=== PATIENT | female | born 2000 | race Caucasian/White ===

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

== ENCOUNTER 2020-03-20 14:54 | Emergency (ER) | payer OTHER ==
[2020-03-20 19:13] LABS: Urine Blood 3+ (NEG); Urine Glucose NEGATIVE (NEG); Urine Protein TRACE (NEG); Urine Specific Gravity >1.030 (1.005-1.030)
[2020-03-20 19:16] LABS: Urine Bacteria 20-50 /HPF (<20); Urine RBC <5 /HPF (NONE SEEN); Urine Trichomonas PRESENT (NONE SEEN)
[2020-03-20 19:36] LABS: Absolute Lymphocytes (CBC) 3.6 K/uL (0.7-4.9); Basophils % 0.4 % (0-1.3); Hematocrit 35.5 % (36.0-45.0); Lymphocytes % 31.3 % (15.3-44.8); MPV 7.2 fL (7.6-11.3); RBC Red Blood Cell Count 4.08 M/uL (3.86-4.86)
[2020-03-20 20:07] LABS: BUN Blood Urea Nitrogen 7 mg/dL (7-18); Bicarbonate 27 mmol/L (21-32); Glucose Level 116 mg/dL (74-106); HCG, Quantitative 48815 mIU/mL (1-3); Potassium 3.3 mmol/L (3.5-5.1); Sodium Level 137 mmol/L (136-145)
[2020-03-20] MEDS ORDERED: metroNIDAZOLE 500 MG TABLET ONE (20:25)
[2020-03-20] MEDS ORDERED: POTASSIUM CL SA 10 MEQ TAB PO ONE (20:50)
--- NOTE | 2020-03-20 21:17 | RAD REPORT ---
EXAM DESCRIPTION: US - Transvaginal OB - 03/20/2020 8:24 pm CLINICAL HISTORY: VAGINAL BLEEDING COMPARISON: No comparisons FINDINGS: A single gestational sac is seen within the uterus. The shape of the sac is within normal limits for gestational age. Within the sac is a single pole with crown-rump length of 8 mm, cor relating to estimated gestational age of 6 weeks 5 days gestational age. Estimated date of delivery i s 11/08/2020. Heart rate is 123 BPM. The placenta is not yet developed due to early gestational age. The left ovary is normal in size, shape and echotexture. Normal flow is seen to the left ovary. The r ight ovary is obscured by bowel gas. Normal Doppler blood flow was demonstrated to the left ovary. IMPRESSION: Single live early intrauterine gestation with estimated gestational age of 6 weeks 5 day s gestational age, JOSUE 11/08/2020.
--- NOTE | 2020-03-20 22:17 | ER ---
Nurse's Notes [facility] Name: Jaclyn Kemp Age: 20 yrs Sex: Female : 2000 Arrival Date: 03/20/2020 Time: 15:03 Bed 17 Private MD: Diagnosis: Threatened ;Less than 8 weeks gestation of ;Trichomoniasis Presentation: 03/20 15:08 Chief complaint: Patient states: Approximately 6 weeks . Started vaginal ll1 bleeding like a period today. Slight cramping. No dysuria. + "morning sickness" today. G1, P0. Coronavirus screen: Client denies travel out of the [place] in the last 14 days. At this time, the client does not indicate any symptoms associated with coronavirus-19. Ebola Screen: Patient denies travel to an Ebola-affected area in the 21 days before illness onset. Initial Sepsis Screen: Does the patient meet any 2 criteria? No. Patient's initial sepsis screen is negative. Does the patient have a suspected source of infection? Yes: Acute abdominal pain. Risk Assessment: Do you want to hurt yourself or someone else? Patient reports no desire to harm self or others. Onset of symptoms was March 20, 2020. 15:08 Method Of Arrival: Ambulatory ll1 15:08 Acuity: DAVID 3 ll1 CONSERVATION AGENT: 23:37 1, 0, Living 0, LMP 01/26/2020 kb Historical: - Allergies: 15:10 No Known Allergies; ll1 - PMHx: 15:10 None; ll1 - PSHx: 15:10 None; ll1 - Immunization history:: Flu vaccine is up to date. - Social history:: Smoking status: Patient denies any tobacco usage or history of. Screenin:31 Abuse screen: Denies threats or abuse. Nutritional screening: No deficits noted. vg1 Tuberculosis screening: No symptoms or risk factors identified. Fall Risk None identified. Assessment: 19:10 Obstetrical Assessment: Patient reports light spotting of pink tinged blood.. General: vg1 Appears in no apparent distress. comfortable, Behavior is calm, cooperative. Pain: Denies pain. Neuro: Level of Consciousness is awake, alert, obeys commands, Oriented to person, place, time, situation. Cardiovascular: Patient's skin is warm and dry. Respiratory: Airway is patent Respiratory effort is even, unlabored. GI: No signs and/or symptoms were reported involving the gastrointestinal system. : No signs and/or symptoms were reported regarding the genitourinary system. EENT: No signs and/or symptoms were reported regarding the EENT system. Derm: Skin is intact, is healthy with good turgor. Musculoskeletal: Circulation, motion, and sensation intact. 20:38 Reassessment: Patient appears in no apparent distress at this time. Patient and/or vg1 family updated on plan of care and expected duration. Pain level reassessed. Patient is alert, oriented x 3, equal unlabored respirations, skin warm/dry/pink. 22:07 Reassessment: Patient appears in no apparent distress at this time. Patient and/or vg1 family updated on plan of care and expected duration. Pain level reassessed. Patient is alert, oriented x 3, equal unlabored respirations, skin warm/dry/pink. Patient denies pain at this time. Vital Signs: 15:08 BP 134 / 72; Pulse 89; Resp 17; Temp 97.0; Pulse Ox 100% ; Weight 77.11 kg; Height 5 ll1 ft. 2 in. (157.48 cm); Pain 1/10; 19:31 BP 126 / 66; Pulse 89; Resp 16; Pulse Ox 100% on R/A; vg1 20:30 BP 124 / 66; Pulse 88; Resp 16; Pulse Ox 100% on R/A; vg1 22:07 BP 115 / 57; Pulse 80; Resp 16; Pulse Ox 100% on R/A; vg1 15:08 Body Mass Index 31.09 (77.11 kg, 157.48 cm) ll1 ED Course: 15:03 Patient arrived in ED. am4 15:10 Triage completed. ll1 15:10 Arm band placed on. ll1 18:40 Aleshia Tirado [facility]-C [facility]. kb 18:40 Danial Shah MD is Attending Physician. kb 18:41 Lucaina Hampton RN is Primary Nurse. vg1 19:29 Initial lab(s) drawn, by me, sent to lab. Inserted saline lock: 20 gauge in right vg1 antecubital area, using aseptic technique. Blood collected. 19:31 Patient has correct armband on for positive identification. Placed in gown. Bed in low vg1 position. Call light in reach. 20:03 US at bedside. vg1 20:25 US Transvaginal Ob In Process Unspecified. EDMS 23:00 No provider procedures requiring assistance completed. IV discontinued, intact, vg1 bleeding controlled, No redness/swelling at site. Pressure dressing applied. Administered Medications: 20:12 Drug: Flagyl 500 mg Route: PO; vg1 22:06 Follow up: Response: No adverse reaction vg1 20:38 Drug: Potassium Chloride 20 mEq Route: PO; vg1 22:06 Follow up: Response: No adverse reaction vg1 22:06 Drug: Rho D Immune Globulin 300 mcg Route: IM; Site: right ventrogluteal; vg1 23:00 Follow up: Response: No adverse reaction vg1 Outcome: 22:17 Discharge ordered by . kb 23:00 Discharged to home ambulatory. vg1 23:00 Condition: stable 23:00 Discharge instructions given to patient, Instructed on discharge instructions, follow up and referral plans. medication usage, Demonstrated understanding of instructions, follow-up care, medications, Prescriptions given X 1. 23:01 Patient left the ED. vg1 Signatures: Dispatcher [employer] EDOH Aleshia Tirado, CLOTH CHECKER-C CLOTH CHECKER-Luicana Garcia RN RN vg1 Grisel Neil, RN RN ll1 Sarah Rousseau am4
--- NOTE | 2020-03-20 22:17 | EDPHYS ---
[facility] Name: Jaclyn Kemp Age: 20 yrs Sex: Female : 2000 Arrival Date: 03/20/2020 Time: 15:03 Bed 17 Private MD: ED Physician Danial Shah HPI: 03/20 23:37 This 20 yrs old Female presents to ER via Ambulatory with complaints of kb Vaginal Bleeding, + Preg <12wks. 23:37 The patient presents to the emergency department with vaginal bleeding, described as kb spotting. The estimated gestational age is 6 weeks. course: care: private OB physician, Dr. Sheppard, Leakage of Fluid: none appreciated, Ultrasound: the patient had an ultrasound, Risk/complications: no obvious risks or complications are appreciated. Previous pregnancies: the patient has never been . Associated signs and symptoms: Pertinent positives: vaginal bleeding, Pertinent negatives: abdominal pain. The patient has not experienced similar symptoms in the past. The patient has not recently seen a physician. Pt reports she noticed blood on the toilet tissue earlier today. No other bleeding. No symptoms at this time. 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 - Social history:: Smoking status: Patient denies any tobacco usage or history of. ROS: 23:36 Constitutional: Negative for fever, chills, and weight loss, Cardiovascular: Negative kb for chest pain, palpitations, and edema, Respiratory: Negative for shortness of breath, cough, wheezing, and pleuritic chest pain, Abdomen/GI: Negative for abdominal pain, nausea, vomiting, diarrhea, and constipation, Back: Negative for injury and pain, MS/Extremity: Negative for injury and deformity, Skin: Negative for injury, rash, and discoloration, Neuro: Negative for headache, weakness, numbness, tingling, and seizure. 23:36 : Positive for vaginal bleeding. Exam: 23:36 Constitutional: This is a well developed, well nourished patient who is awake, alert, kb and in no acute distress. Head/Face: Normocephalic, atraumatic. Chest/axilla: Normal chest wall appearance and motion. Nontender with no deformity. No lesions are appreciated. Cardiovascular: Regular rate and rhythm with a normal S1 and S2. No gallops, murmurs, or rubs. Normal PMI, no JVD. No pulse deficits. Respiratory: Lungs have equal breath sounds bilaterally, clear to auscultation and percussion. No rales, rhonchi or wheezes noted. No increased work of breathing, no retractions or nasal flaring. Abdomen/GI: Soft, non-tender, with normal bowel sounds. No distension or tympany. No guarding or rebound. No evidence of tenderness throughout. Back: No spinal tenderness. No costovertebral tenderness. Full range of motion. Skin: Warm, dry with normal turgor. Normal color with no rashes, no lesions, and no evidence of cellulitis. MS/ Extremity: Pulses equal, no cyanosis. Neurovascular intact. Full, normal range of motion. Neuro: Awake and alert, GCS 15, oriented to person, place, time, and situation. Cranial nerves II-XII grossly intact. Motor strength 5/5 in all extremities. Sensory grossly intact. Cerebellar exam normal. Normal gait. Vital Signs: 15:08 BP 134 / 72; Pulse 89; Resp 17; Temp 97.0; Pulse Ox 100% ; Weight 77.11 kg; Height 5 ll1 ft. 2 in. (157.48 cm); Pain 1/10; 19:31 BP 126 / 66; Pulse 89; Resp 16; Pulse Ox 100% on R/A; vg1 20:30 BP 124 / 66; Pulse 88; Resp 16; Pulse Ox 100% on R/A; vg1 22:07 BP 115 / 57; Pulse 80; Resp 16; Pulse Ox 100% on R/A; vg1 15:08 Body Mass Index 31.09 (77.11 kg, 157.48 cm) ll1 MDM: 18:40 Patient medically screened. kb 21:19 Data reviewed: vital signs, nurses notes. Data interpreted: Pulse oximetry: on room air kb is 100 %. Interpretation: normal. Counseling: I had a detailed discussion with the patient and/or guardian regarding: the historical points, exam findings, and any diagnostic results supporting the discharge/admit diagnosis, lab results, radiology results, the need for outpatient follow up, an OB/Gyne specialist, to return to the emergency department if symptoms worsen or persist or if there are any questions or concerns that arise at home. 03/20 19:00 Order name: Quantitative Hcg; Complete Time: 20:19 kb 03/20 19:00 Order name: Abo/rh Typing 03/20 19:00 Order name: Basic Metabolic Panel; Complete Time: 20:19 kb 03/20 19:00 Order name: CBC with Diff; Complete Time: 19:57 kb 03/20 19:00 Order name: Urine Microscopic Only; Complete Time: 19:24 kb 03/20 19:01 Order name: Urine --Ancillary (enter results); Complete Time: 19:24 kb 03/20 19:01 Order name: Urine Dipstick--Ancillary (enter results); Complete Time: 19:24 kb 03/20 19:08 Order name: US Transvaginal Ob; Complete Time: 21:19 kb 03/20 19:17 Order name: Urine Culture [facility] 03/20 20:41 Order name: Rh Typing [facility] 03/20 20:41 Order name: Antibody Screen [facility] 03/20 20:41 Order name: Fetalscreen [facility] 03/20 20:41 Order name: Cord Rh type [facility] 03/20 20:42 Order name: Rhogam [facility] 03/20 15:21 Order name: Urine Test (obtain specimen); Complete Time: 19:06 kb 03/20 15:21 Order name: Urine Dipstick-Ancillary (obtain specimen); Complete Time: 19:06 kb 03/20 19:00 Order name: IV Saline Lock; Complete Time: 19:28 kb 03/20 19:00 Order name: Labs collected and sent; Complete Time: 19:28 kb 03/20 19:00 Order name: NPO; Complete Time: 19:02 kb Administered Medications: 20:12 Drug: Flagyl 500 mg Route: PO; vg1 22:06 Follow up: Response: No adverse reaction vg1 20:38 Drug: Potassium Chloride 20 mEq Route: PO; vg1 22:06 Follow up: Response: No adverse reaction vg1 22:06 Drug: Rho D Immune Globulin 300 mcg Route: IM; Site: right ventrogluteal; vg1 23:00 Follow up: Response: No adverse reaction vg1 Disposition: 03/20/20 22:17 Discharged to Home. Impression: Threatened , Less than 8 weeks gestation of , Trichomoniasis. - Condition is Stable. - Discharge Instructions: Trichomoniasis, First Trimester of , Ulmb-jv-Gmxo, Threatened Miscarriage, Debz-yq-Vela, Vaginal Bleeding During , First Trimester, Giqe-bs-Lmfr. - Prescriptions for Flagyl 500 mg Oral Tablet - take 1 tablet by ORAL route every 12 hours for 7 days; 14 tablet. - Medication Reconciliation Form, Thank You Letter, Antibiotic Education, Prescription Opioid Use form. - Follow up: Emergency Department; When: As needed; Reason: Worsening of condition. Follow up: Private Physician; When: 2 - 3 days; Reason: Recheck today's complaints, Continuance of care, Re-evaluation by your physician. Addendum: 03/22/2020 20:03 Co-signature as Attending Physician, Danial Shah MD I agree with the assessment and k dr plan of care. Signatures: Dispatcher [employer] EDWY Aleshia Tirado, BENNY-C MANNEQUIN COLORING ARTIST-Ckb Danial Shah MD MD [facility] Luciana Hampton RN RN vg1 Grisel Neil RN RN ll1 Corrections: (The following items were deleted from the chart) 03/20 22:19 22:17 03/20/2020 22:17 Discharged to Home. Impression: Threatened ; Less than 8 kb weeks gestation of . Condition is Stable. Forms are Medication Reconciliation Form, Thank You Letter, Antibiotic Education, Prescription Opioid Use. Follow up: Emergency Department; When: As needed; Reason: Worsening of condition. Follow up: Private Physician; When: 2 - 3 days; Reason: Recheck today's complaints, Continuance of care, Re-evaluation by your physician. kb 23:01 22:19 03/20/2020 22:17 Discharged to Home. Impression: Threatened ; Less than 8 vg1 weeks gestation of ; Trichomoniasis. Condition is Stable. Discharge Instructions: First Trimester of , Ofef-od-Lusn, Threatened Miscarriage, Hcki-qa-Esor, Vaginal Bleeding During , First Trimester, Fswg-dz-Ggdc. Forms are Medication Reconciliation Form, Thank You Letter, Antibiotic Education, Prescription Opioid Use. Follow up: Emergency Department; When: As needed; Reason: Worsening of condition. Follow up: Private Physician; When: 2 - 3 days; Reason: Recheck today's complaints, Continuance of care, Re-evaluation by your physician. kb
[2020-03-20 23:38] VITALS: BP 126/66; O2SAT 100
[2020-03-20 23:39] VITALS: TEMP 97
== END 2020-03-20 23:01 | disposition home or self-care (01) ==
LOC: ER 14:54
DX: O20.0 Threatened abortion (principal); Z3A.08 8 weeks gestation of pregnancy; A59.9 Trichomoniasis, unspecified
CPT/HCPCS: 87088; 85025; 87086; 80048; 36415; 86900; 86850; 81025; 86901 ×2; 84702; 76817; 96372; 99284; J2790; 81003; 81015

== ENCOUNTER 2020-09-20 05:46 | Emergency (ER) | payer OTHER ==
--- OUTSIDE RECORDS SUMMARY | 2020-09-20 05:49 | XMS REPORT | Continuity of Care Document ---
:2000 Author Organization [facility] t Address [address] [place] [address] Care Team Providers Name Role Phone Unavailable Unavailable Unavailable Problems Condition Condition Condition Status Onset Resolution Last Treating Co mments Source Name Details Category Date Date Treatment Clinician Date Major Major Diagnosis Active [facility] depressive depressive Darling kes - disorder, disorder, Tomasz megan single single l episode, episode, Outpat i unspecifie unspecifie en t d d Clinics Anxiety Anxiety Diagnosis [facility] disorder, disorder, [facility] - unspecifie unspecifie Me [facility] Sinus Sinus Problem Active [facility] problem problem [facility] Sore Sore Diagnosis Active [facility] throat throat [facility] Allergies, Adverse Reactions, Alerts Allergy Allergy Status Severity Reaction(s) Onset Inactive Treating Comm ents Source Name Type Date Date Clinician Cinnamon Adverse Active Info Not [facility] Reaction Available [facility] Medications Ordered Filled Start Stop Current Ordering Indication Dosage Frequency Signature Comments Components Source Medication Medication Date Date Medication? Clinician (SIG) Name Name Lysine Lysine Yes Maite as [facility] directed [facility] Clinics Procedures This patient has no known procedures. Encounters Start End Encounter Admission Attending Care Care Encounter Source Date/Time Date/Time Type Type Clinicians Facility Department ID 2018-10-09 2018-10-09 [facility] [id number] [address] 15:20:00 15:20:00 [facility] Medicine Medicine [facility] ent Clinics Results This patient has no known results.
--- NOTE | 2020-09-20 06:12 | ER ---
Nurse's Notes [facility] Name: Jaclyn Kemp Age: 20 yrs Sex: Female : 2000 Arrival Date: 09/20/2020 Time: 05:48 Bed 5 Private MD: Diagnosis: Foreign body in left ear-REMOVED Presentation: 09/20 06:08 Chief complaint: Patient states: Pulled ear plug out this morning and states a piece lp1 stayed in her right ear; wears earplugs to sleep due to snoring. Coronavirus screen: Client denies travel out of the [place] in the last 14 days. At this time, the client does not indicate any symptoms associated with coronavirus-19. Ebola Screen: No symptoms or risks identified at this time. Initial Sepsis Screen: Does the patient meet any 2 criteria? No. Patient's initial sepsis screen is negative. Does the patient have a suspected source of infection? No. Patient's initial sepsis screen is negative. Risk Assessment: Do you want to hurt yourself or someone else? Patient reports no desire to harm self or others. Onset of symptoms was September 20, 2020. 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 - Social history:: Smoking status: Patient denies any tobacco usage or history of. - Family history:: not pertinent. Screenin:10 Abuse screen: Denies threats or abuse. Denies injuries from another. Nutritional lp1 screening: No deficits noted. Tuberculosis screening: No symptoms or risk factors identified. Fall Risk None identified. Assessment: 06:10 General: Appears in no apparent distress. Behavior is calm, cooperative. Pain: Denies lp1 pain. Neuro: No deficits noted. Cardiovascular: No deficits noted. Respiratory: No deficits noted. GI: No signs and/or symptoms were reported involving the gastrointestinal system. : No signs and/or symptoms were reported regarding the genitourinary system. EENT: Reports piece of earplug to right ear. Derm: Skin is pink, warm \T\ dry. Musculoskeletal: No deficits noted. Vital Signs: 06:08 BP 118 / 73; Pulse 100; Resp 18; Temp 98.5(O); Pulse Ox 100% on R/A; Weight 92.99 kg lp1 (R); Height 5 ft. 2 in. (157.48 cm); Pain 0/10; 06:08 Body Mass Index 37.49 (92.99 kg, 157.48 cm) 1 ED Course: 05:48 Patient arrived in ED. 06:01 Juancarlos Gusman MD is Attending Physician. amanda 06:08 Ritika Dash, RN is Primary Nurse. lp1 06:09 Triage completed. lp1 06:09 Arm band placed on. lp1 06:10 Patient has correct armband on for positive identification. lp1 06:11 No provider procedures requiring assistance completed. Patient did not have IV access lp1 during this emergency room visit. Administered Medications: No medications were administered Outcome: 06:12 Discharge ordered by . [facility] 06:20 Discharged to home ambulatory. lp1 06:20 Condition: good 06:20 Discharge instructions given to patient, Instructed on discharge instructions, follow up and referral plans. Demonstrated understanding of instructions, follow-up care. 06:20 Patient left the ED. lp1 Signatures: Juancarlos Gusman MD MD cha Pena, Laura, RN RN [facility] Romana Meek
--- NOTE | 2020-09-20 06:13 | EDPHYS ---
Physician Documentation [facility] Name: Jaclyn Kemp Age: 20 yrs Sex: Female : 2000 Arrival Date: 09/20/2020 Time: 05:48 Bed 5 Private MD: ASHLEY Physician Juancarlos Gusman HPI: 09/20 06:07 This 20 yrs old Female presents to ER via Unassigned with complaints of amanda Foreign Body In Ear. 06:07 The patient presents with a foreign body sensation, PLUG. The complaints affect the amanda left ear. Onset: The symptoms/episode began/occurred just prior to arrival. Modifying factors: The symptoms are alleviated by nothing, the symptoms are aggravated by. Associated signs and symptoms: The patient has no apparent associated signs or symptoms. The patient has not experienced similar symptoms in the past. 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 - Social history:: Smoking status: Patient denies any tobacco usage or history of. - Family history:: not pertinent. ROS: 06:07 Constitutional: Negative for fever, chills, and weight loss, Eyes: Negative for injury, amanda pain, redness, and discharge, Neck: Negative for injury, pain, and swelling, Cardiovascular: Negative for chest pain, palpitations, and edema, Respiratory: Negative for shortness of breath, cough, wheezing, and pleuritic chest pain, Abdomen/GI: Negative for abdominal pain, nausea, vomiting, diarrhea, and constipation, Back: Negative for injury and pain, : Negative for injury, bleeding, discharge, and swelling, MS/Extremity: Negative for injury and deformity, Skin: Negative for injury, rash, and discoloration, Neuro: Negative for headache, weakness, numbness, tingling, and seizure, Psych: Negative for depression, anxiety, suicide ideation, homicidal ideation, and hallucinations, Allergy/Immunology: Negative for hives, rash, and allergies, Endocrine: Negative for neck swelling, polydipsia, polyuria, polyphagia, and marked weight changes, Hematologic/Lymphatic: Negative for swollen nodes, abnormal bleeding, and unusual bruising. 06:07 ENT: Positive for ear pain, foreign body sensation. Exam: 06:07 Constitutional: This is a well developed, well nourished patient who is awake, alert, amanda and in no acute distress. Head/Face: Normocephalic, atraumatic. Eyes: Pupils equal round and reactive to light, extra-ocular motions intact. Lids and lashes normal. Conjunctiva and sclera are non-icteric and not injected. Cornea within normal limits. Periorbital areas with no swelling, redness, or edema. Neck: Trachea midline, no thyromegaly or masses palpated, and no cervical lymphadenopathy. Supple, full range of motion without nuchal rigidity, or vertebral point tenderness. No Meningismus. Chest/axilla: Normal chest wall appearance and motion. Nontender with no deformity. No lesions are appreciated. Cardiovascular: Regular rate and rhythm with a normal S1 and S2. No gallops, murmurs, or rubs. Normal PMI, no JVD. No pulse deficits. Respiratory: Lungs have equal breath sounds bilaterally, clear to auscultation and percussion. No rales, rhonchi or wheezes noted. No increased work of breathing, no retractions or nasal flaring. Abdomen/GI: Soft, non-tender, with normal bowel sounds. No distension or tympany. No guarding or rebound. No evidence of tenderness throughout. Back: No spinal tenderness. No costovertebral tenderness. Full range of motion. Skin: Warm, dry with normal turgor. Normal color with no rashes, no lesions, and no evidence of cellulitis. MS/ Extremity: Pulses equal, no cyanosis. Neurovascular intact. Full, normal range of motion. Neuro: Awake and alert, GCS 15, oriented to person, place, time, and situation. Cranial nerves II-XII grossly intact. Motor strength 5/5 in all extremities. Sensory grossly intact. Cerebellar exam normal. Normal gait. Psych: Awake, alert, with orientation to person, place and time. Behavior, mood, and affect are within normal limits. 06:07 ENT: Ear canal(s): foreign body, LEFT EAR PLUG. Vital Signs: 06:08 BP 118 / 73; Pulse 100; Resp 18; Temp 98.5(O); Pulse Ox 100% on R/A; Weight 92.99 kg lp1 (R); Height 5 ft. 2 in. (157.48 cm); Pain 0/10; 06:08 Body Mass Index 37.49 (92.99 kg, 157.48 cm) lp1 MDM: 06:01 Patient medically screened. amanda 06:09 Differential diagnosis: foreign body. Data reviewed: vital signs, nurses notes. Data amanda interpreted: threat monitoring analyst: not applicable for this patient encounter. rate is 100 beats/min, Pulse oximetry: on room air. Counseling: I had a detailed discussion with the patient and/or guardian regarding: the historical points, exam findings, and any diagnostic results supporting the discharge/admit diagnosis, the need for outpatient follow up, for definitive care, a family practitioner. Administered Medications: No medications were administered Disposition Summary: 09/20/20 06:12 Discharge Ordered Location: Home amanda Problem: new amanda Symptoms: have improved amanda Condition: Stable amanda Diagnosis - Foreign body in left ear - REMOVED amanda Followup: amanda - With: Private Physician - When: 2 - 3 days - Reason: Recheck today's complaints, Continuance of care, Re-evaluation by your physician Discharge Instructions: - Discharge Summary Sheet amanda - Ear Foreign Body amanda - Ear Foreign Body, [id number]-ob-Zbfw amanda Forms: - Medication Reconciliation Form amanda - Thank You Letter amanda - Antibiotic Education amanda - Prescription Opioid Use amanda Signatures: Juancarlos Gusman MD MD cha Pena, Laura, RN RN lp1
[2020-09-20 06:39] VITALS: BP 118/73; TEMP 98.5; O2SAT 100
== END 2020-09-20 06:20 | disposition home or self-care (01) ==
LOC: ER 05:46
DX: T16.2XXA Foreign body in left ear, initial encounter (principal)
CPT/HCPCS: 99281

== ENCOUNTER 2020-10-27 10:14 | Inpatient (IN) | payer OTHER ==
[2020-10-27] MEDS ORDERED: METHYLERGONOVINE 0.2MG/ML AMP IM PRN (15:13)
[2020-10-27] MEDS ORDERED: PROMETHAZINE INJ 25 MG/ML AMP IM PRN ×2 (15:13)
[2020-10-27] MEDS ORDERED: CARBOPROST TROME 250 MCG/ML IM PRN (15:13)
[2020-10-27] MEDS ORDERED: BUTORPHANOL 1 MG/ML INJ IV PRN (15:13)
[2020-10-27] MEDS ORDERED: Ringers Lactate 1,000 ML IV PRN (15:13)
[2020-10-27] MEDS ORDERED: miSOPROStoL 100 MCG TAB VAG PRN (15:19)
[2020-10-27] MEDS ORDERED: OXYTOCIN/LR 20 UNIT/1,000 ML BAG IV SCH (16:00)
[2020-10-27] MEDS ORDERED: Ringers Lactate 1,000 ML IV SCH (16:00)
--- OUTSIDE RECORDS SUMMARY | 2020-10-27 16:04 | XMS REPORT | Continuity of Care Document ---
:[address] [facility] t Address [address] [place] [address] Care Team Providers Name Role Phone Unavailable [...] unspecifie unspecifie [facility] Sinus Sinus Problem Active [facility] Sore Sore Diagnosis Active [facility] Allergies, Adverse Reactions, Alerts Allergy Allergy Status Severity Reaction(s) Onset Inactive Treating Comm ents Source Name Type Date Date Clinician Cinnamon Adverse Active Info Not [facility] Reaction Available [facility] Medications Ordered Filled Start Stop Current Ordering Indication Dosage Frequency Signature Comments Components Source Medication Medication Date Date Medication? Clinician (SIG) Name Name Lysine Lysine Yes Maite as [facility] [place] directed [facility] ent Clinics Procedures This patient has no known procedures. Encounters Start End Encounter Admission Attending Care Care Encounter Source Date/Time Date/Time Type Type Clinicians Facility Department ID 2018-10-09 2018-10-09 [facility] [id number] 15[facility]20:00 15:20:00 [facility] Results This patient has no known results.
--- NOTE | 2020-10-27 16:52 | PREOPHP ---
Date of Admission: 10/27/2020 History Of Present Illness: This is a 20-year-old, primigravida, 38 weeks and 3 days, diabetic, seen in conjunction with Dr. Espana, high-credit risk analyst, [facility], who has recommen ded delivery at this point. Cytotec has been discussed in the office and again today. Family History: Noncontributory. Past Medical History: The patient had a broken elbow in the past with surgery for that. Had gonorrh ea in 2019. Allergies: NO ALLERGIES. Medications: No medications prior to admission other than vitamins and iron. Social History: Does not smoke. Physical Examination: HEENT: Clear. Pupils equal, round, reactive to light and accommodation. Conjunctivae well perfused . No oral, lingual, or buccal lesions. Chest and Lungs: Clear. Heart: Without murmurs, thrills, heaves, or rubs. Breasts: Without masses. Abdomen: Clear. Term size. Baby is vertex. Assessment And Plan: The patient is 1.5 cm, 40% to 50% effaced, vertex, -2 station. Cytotec 50 mcg inserted. We will insert another 50 mcg in 6 hours if necessary and even possibly a third [address] the second. Full labor talk given. The patient is Rh negative, has received RhoGAM during the p regnancy. COVID negative, strep positive, and rubella nonimmune. This has all been discussed with t he patient. Once the rupture of membranes occur or when she goes into an active labor, we will start penicillin p rophylaxis. JUSTIN/ELAINA Voice ID: [id number]
[2020-10-27] MEDS ORDERED: PENICILLIN 2.5 MU in NA CHLORIDE 0.9% 100 ML IV SCH (17:00)
[2020-10-27] MEDS ORDERED: PENICILLIN G POT 5 MU/100 ML VIAL IV ONE (17:00)
[2020-10-27 17:01] VITALS: BMI 37.5
[2020-10-27 17:24] LABS: Absolute Lymphocytes (CBC) 2.3 K/uL (0.7-4.9); Basophils % 0.2 % (0-1.3); Lymphocytes % 28.4 % (15.3-44.8); MPV 8.2 fL (7.6-11.3); RBC Red Blood Cell Count 3.36 M/uL (3.86-4.86)
[2020-10-27] MEDS ORDERED: ZOLPIDEM TARTRATE 10 MG TABLET PO PRN (23:29)
[2020-10-28 03:00] LABS: Urine Appearance TURBID (Clear); Urine Bilirubin NEGATIVE (Negative); Urine Blood TRACE (Negative); Urine Color YELLOW (Yellow); Urine Glucose NEGATIVE (Negative); Urine Protein NEGATIVE (Negative); Urine Specific Gravity <=1.005 (1.005-1.030); Urine Urobilinogen 0.2 mg/dL (0.2-1.0)
[2020-10-28 03:04] LABS: Urine Microscopic Reflex ORDER UMIC
--- NOTE | 2020-10-28 03:17 | PN ---
The patient experienced spontaneous rupture of membranes, clear fluid. She is now 2.5, almost 3 cm, 90% effaced. Scalp electrode placed. Baby does respond to acoustic stimulation. She is doing quite well with Lamaze breathing techniques. Anticipate more rapid progress once she gets to about 4-4.5. NBC/MODL Voice ID: [id number] Report ID: [id number]
[2020-10-28 03:20] LABS: Urine Bacteria >50 /HPF (<20)
[2020-10-28 03:21] LABS: Urine Trichomonas PRESENT (NONE SEEN); Urine Yeast FEW (NONE SEEN)
[2020-10-28 03:22] LABS: Urine RBC <5 /HPF (NONE SEEN)
[2020-10-28] MEDS ORDERED: FAMOTIDINE 20 MG/2 ML VIAL IV ONE (04:43)
[2020-10-28] MEDS ORDERED: METOCLOPRAMIDE 10 MG/2mL INJ ONE (04:43)
[2020-10-28] MEDS ORDERED: METHYLERGONOVINE 0.2MG/ML AMP IM ONE (04:44)
[2020-10-28] MEDS ORDERED: NA CIT/CITRIC AC 30 ML ORAL UDC ONE (04:44)
--- NOTE | 2020-10-28 04:46 | PN ---
The patient is still 3 to 3.5 cm 90% effaced. No cervical change. Baby has shown decreased beat-to- beat variability, still clear fluid, . We discussed with the patient and significant other . We decided to proceed with the section. Infection; blood loss; anesthetic complications; injury to bladder, bowel, ureter; postoperative complications; clots in the legs; pneumonia sapnae jamaal. The patient knows fully, was not constitute all the possible problems that could occur during or following surgery. She has had one dose of penicillin. We will give her 2 g of Ancef prior to the s urgery. Dr. Beth is here. We are cleaning up the room from the previous surgery and we will proceed expeditiously. JUSTIN/ELAINA Voice ID: [id number] Report ID: [id number]
[2020-10-28] MEDS ORDERED: BUPIVACAINE 0.75% (PF) 2 ML SP ONE (04:47)
[2020-10-28] MEDS ORDERED: LIDOCAINE 1.5% W/EPI AMP 5 ML ONE (04:47)
[2020-10-28] MEDS ORDERED: MORPHINE SULFATE/PF 1 MG/ML (10 ML AMP) ONE (04:47)
[2020-10-28] MEDS ORDERED: Phenylephrine HCl 10 MG/ML 1 ML VIAL ONE (04:51)
[2020-10-28] MEDS ORDERED: CEFAZOLIN/SWI 2gm 2 GM/20 ML SYR ONE (05:04)
[2020-10-28] MEDS ORDERED: OXYTOCIN 10 UNIT/ML ML IV ONE ×2 (05:15→05:17)
[2020-10-28] MEDS ORDERED: ONDANSETRON 4 MG (ODT) TAB PO PRN (06:16)
[2020-10-28] MEDS ORDERED: CEFAZOLIN 1GM (PREMIX IV) 50 ML IV ONE (06:16)
[2020-10-28] MEDS ORDERED: Oxycodone HCl/Acetaminophen 1 TAB TAB PO PRN ×2 (06:16)
[2020-10-28] MEDS ORDERED: DIPHENHYDRAMINE 25 MG TAB/CAP PO PRN (06:16)
[2020-10-28] MEDS ORDERED: BISACODYL 10 MG RECTAL SUPP PR PRN (06:16)
[2020-10-28] MEDS ORDERED: KETOROLAC 30 MG/ML INJ IV PRN (06:16)
[2020-10-28] MEDS ORDERED: METHYLERGONOVINE 0.2MG/ML AMP IM PRN (06:16)
[2020-10-28] MEDS ORDERED: ACETAMINOPHEN 500 MG TAB PO PRN ×2 (06:16)
[2020-10-28] MEDS ORDERED: ONDANSETRON 4 MG/2 ML VIAL IV PRN (06:16)
[2020-10-28] MEDS: OXYTOCIN/LR 20 UNIT/1,000 ML BAG IV SCH ×2 (06:39→16:22)
[2020-10-28] MEDS ORDERED: D5LR 1,000 ML with OXYTOCIN 20 UNIT IV SCH ×2 (07:00)
[2020-10-28] MEDS ORDERED: CEFAZOLIN 2 GM in NA CHLORIDE 0.9% 100 ML IVPB ONE (07:19)
[2020-10-28] MEDS ORDERED: CEFAZOLIN/SWI 2gm 2 GM/20 ML SYR IV ONE ×2 (07:30→13:15)
--- NOTE | 2020-10-28 08:22 | OP ---
Surgeon: Ludwig Sheppard MD Housekeeping Coordinator: first Parishfirst line supervisor. Indication: This is a 20-year-old primigravida 38 weeks 3 days, had Cytotec inserted last night and early this morning with rupture of membranes and clear fluid. Had minimal twnt-wn-ivqu variability. Change in positions, IV, increase of fluids, oxygen administered. They improved slightly. The steven ent progressed to about 2.5 cm at which time again loss of variability for sometime. Acoustic stimul ation the second time did not elicit any type of response. It was decided to proceed with primary ce sarean section for delivery for non-reassuring; infection; blood loss; anesthetic complications; inju ry to bladder, bowel, ureter; postoperative complications; clots in legs; and pneumonia discussed. P atient knows fully well, does not constitute all the possible problems that could occur during or fol lowing surgery. Anesthesia: Spinal block, Dr. Beth. Procedure In Detail: After prepping and draping, time-out was performed. Pfannenstiel incision was created. The incision was carried to the fascia. The fascia was incised and incision carried transv ersely. Numerous small bleeders were fulgurated. Anterior fascial plane was developed with both sapphire nt sharp dissection and underlying rectus muscle . Peritoneum entered. Low transverse blad tony flap developed. Low transverse uterine incision created. At this time, an estimated 7 pounds or more male infant was delivered without difficulties. His Apgars 9 and 9. Cord blood specimen obtai laverne. Placenta removed manually. Uterus cleared of clot and blood, exteriorized. Cervical os dilate d. Uterus mildly hypotonic, 0.2 mg of Methergine IM as well as IV drip Pitocin. Estimated blood los s during procedure 900 to 1000 cc. Uterus closed with a running lock stitch of 1 chromic followed by a single [id number] stitch in the right angle for complete hemostasis. It was noted the patien t had no right tube and ovary. There was scar tissue on this side. These were filmy-type adhesions. These were fulgurated. One was tied with a 2-0 plain gut. No other abnormalities were seen in the pelvis. The uterus was replaced in the peritoneal cavity. Gutters clear of clot and blood. The in cision check, no further bleeding. The rectus muscles were reapproximated using 2 sutures of 0 Vicry l. The fascia was closed with 1 Vicryl running from either angle to the midline. Subcutaneous tissu e felt together well. Meghan used for the skin. The patient had 1 dose of 5 million units of penic illin during the labor secondary to be in strep positive, was given 2 g of Ancef prior to the procedu re. Transferred back to her room in good condition. Final Diagnoses: Intrauterine gestation, 38 weeks 3 days, Cytotec for cervical ripening, gestational diabetes, in consultation with Dr. Espana, high-market risk analyst in [place]. Nonreassuring heart ton es, primary section, spinal block anesthesia, mild uterine hypertonus, absent right tube and ovary, apparent previous surgery. The patient apparently is not aware of. JUSTIN/ELAINA Voice ID: [id number] Report ID: [id number]
--- NOTE | 2020-10-28 09:01 | PN ---
Alert this morning. Output is good. Vital signs are all stable. H and H are pending at this point. Full postop talk given. Will begin ambulation later today, possibly send her home on af or Monday morning. Patient has had her Tdap shot during the . She is not requesting analgesics at this point. Doing quite well. JUSTIN/ELAINA Voice ID: [id number] Report ID: [id number]
[2020-10-28] MEDS: METHYLERGONOVINE 0.2 MG TAB PO PRN ×3 (12:17→20:08)
[2020-10-28] MEDS ORDERED: CEFAZOLIN/SWI 1gm 1 GM/10 ML SYR IVP SCH ×2 (12:30→14:00)
[2020-10-28] MEDS ORDERED: CEFAZOLIN/SWI 1gm 1 GM/10 ML SYR IVP ONE (12:30)
[2020-10-29] MEDS: METHYLERGONOVINE 0.2 MG TAB PO PRN ×2 (00:10→04:59)
[2020-10-29 00:28] VITALS: BP 116/60; TEMP 97.7
[2020-10-29 02:23] LABS: RPR (Rapid Plasma Reagin) NON-REACT (NON-REACT)
[2020-10-29] MEDS ORDERED: MAGNESIUM HYDROXIDE 8% 30 ML PO PRN (06:16)
--- NOTE | 2020-10-29 10:03 | DS ---
Hospital Course: A 20-year-old, primigravida, 38 weeks 4 days. Had Cytotec inserted. Went into a v hong active labor. Was diagnosed with non-reassuring heart tones. Taken to surgery, delivered of an estimated 7-pound male, Apgars 9 and 9. Spinal block anesthesia, mild uterine hypotonus. Samantha mated blood loss 900 to 1000 mL. Noted to have an absent right tube and ovary, but denies any previo us surgeries. The left side looked absolutely normal. There was also some mild scarring on the righ t side, filmy adhesions. The patient was beta-strep positive. Had penicillin prior to the surgery a nd Ancef for prophylaxis after the surgery. Postoperatively, she is afebrile, is voiding. We will t debra her IV out this morning. She has already ambulated. Asked if she go home this afternoon. If th e patient takes p.o. intake, walks, can shower and do well, then we will let her go home later this a fternoon. Otherwise, come back tomorrow morning to make rounds. She knows if she goes home. She bryant s already called the office for an appointment to see as early next week. She knows at home she is t o report any fever of 100 degrees or more, severe pain, heavy bleeding or any other type of abnormali ties. She has no post spinal block problems. Will call in to the local pharmacy for tramadol for an algesia. She has had her Tdap shot during the . She is nonimmune to rubella and this has b een offered to her as well. She is Rh negative. Baby is also Rh negative. Therefore, no RhoGAM nee ded. All of this discussed with the patient. Final Diagnoses: Intrauterine gestation, 38 weeks 4 days, non-reassuring heart tones, primary section, mild uterine hypotonus, absence of the right tube and ovary, positive strep status, penicillin prophylaxis. Rubella immunization offered. JUSTIN/ELAINA Voice ID: [id number] Report ID: [id number]
[2020-11-01 18:27] LABS: HBsAG Nonreactive (Nonreactive)
[2020-11-02] MEDS ORDERED: IBUPROFEN 200 MG TAB PO PRN (12:16)
== END 2020-10-29 16:35 | disposition home or self-care (01) | DRG 788 ==
LOC: 2ND-WC 16:02
PROVIDERS: ADMIT Specialist; ATTEND Specialist
PROC: 3E0P7VZ Introduction of Hormone into Female Reproductive, Via Natural or Artificial Opening (ICD-10-PCS; 2020-10-28)
PROC: 4A1H7CZ Monitoring of Products of Conception, Cardiac Rate, Via Natural or Artificial Opening (ICD-10-PCS; 2020-10-28)
PROC: 10H073Z Insertion of Monitoring Electrode into Products of Conception, Via Natural or Artificial Opening (ICD-10-PCS; 2020-10-28)
PROC: 10D00Z1 Extraction of Products of Conception, Low, Open Approach (ICD-10-PCS; principal; 2020-10-28 04:53)
DX: O76 Abnormality in fetal heart rate and rhythm complicating labor and delivery (principal); O24.429 Gestational diabetes mellitus in childbirth, unspecified control; O99.824 Streptococcus B carrier state complicating childbirth; O62.2 Other uterine inertia; Z3A.38 38 weeks gestation of pregnancy; Z37.0 Single live birth
CPT/HCPCS: 36415; 81003; 81015; 85014; 85025; 86592; 86901; 87086; 87088; 87340; 88307; J0690; J2210; J2370; J2540; J2590; J2765; J7120; J7121

== ENCOUNTER 2021-06-21 09:28 | Emergency (ER) | payer OTHER ==
--- OUTSIDE RECORDS SUMMARY | 2021-06-21 09:31 | XMS REPORT | Continuity of Care Document ---
:2000 Author Organization [facility] t Address [address] [place] [address] Care Team Providers Name Role Phone Unavailable [...] unspecifie unspecifie Me [facility] Sinus Sinus Problem Active [facility] Sore Sore Diagnosis Active [facility] throat [facility] Allergies, Adverse Reactions, Alerts Allergy Allergy Status Severity Reaction(s) Onset Inactive Treating Comm ents Source Name Type Date Date Clinician Cinnamon Adverse Active Info Not [facility] Reaction Available [facility] Medications Ordered Filled Start Stop Current Ordering Indication Dosage Frequency Signature Comments Components Source Medication Medication Date Date Medication? Clinician (SIG) Name Name Lysine Lysine Yes Maite as [facility] directed [facility] Clinics Procedures This patient has no known procedures. Encounters Start End Encounter Admission Attending Care Care Encounter Source Date/Time Date/Time Type Type Clinicians Facility Department ID 2018-10-09 2018-10-09 [facility] [id number] [facility] [address] 15:20:00 15:20:00 [facility] Medicine [facility] Results This patient has no known results.
[2021-06-21 09:47] LABS: Urine Blood Trace-intact (Negative); Urine Glucose Negative (Negative); Urine Protein 1+ (Negative)
[2021-06-21] MEDS ORDERED: CEFTRIAXONE 250 MG/VIAL ONE (10:50)
[2021-06-21] MEDS ORDERED: AZITHROMYCIN 250 MG TAB ONE (10:50)
[2021-06-21 11:00] LABS: Urine Bacteria <20 /HPF (<20); Urine Mucus 1+ /HPF (NONE SEEN); Urine RBC <5 /HPF (NONE SEEN)
[2021-06-21 11:01] LABS: Urine Amorphous Sediment 1+ /HPF (NONE SEEN)
--- NOTE | 2021-06-21 11:13 | ER ---
Nurse's Notes [facility] Name: Jaclyn Kemp Age: 21 yrs Sex: Female : 2000 Arrival Date: 06/21/2021 Time: 09:30 Bed 6 Private MD: Diagnosis: Dysuria Presentation: 06/21 09:34 Chief complaint: Patient states: Vaginal pain began last week, stated " the pain began vg1 after intercourse and it continues to hurt, its really sore especially when i wipe and after urination". Denes bleeding. Coronavirus screen: Vaccine status: Patient reports receiving the 2nd dose of the covid vaccine. Client denies travel out of the [place] in the last 14 days. Ebola Screen: Patient denies exposure to infectious person. Patient denies travel to an Ebola-affected area in the 21 days before illness onset. Initial Sepsis Screen: Does the patient meet any 2 criteria? No. Patient's initial sepsis screen is negative. Does the patient have a suspected source of infection? No. Patient's initial sepsis screen is negative. Risk Assessment: Do you want to hurt yourself or someone else? Patient reports no desire to harm self or others. Onset of symptoms was June 14, 2021. 09:34 Method Of Arrival: Ambulatory vg1 09:34 Acuity: DAVID 3 vg1 Triage Assessment: 09:36 General: Appears uncomfortable, Behavior is calm, cooperative. Pain: Complains of pain vg1 in groin Pain currently is 9 out of 10 on a pain scale. 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 - Social history:: Smoking status: Patient denies any tobacco usage or history of. Screenin:43 Abuse screen: Denies threats or abuse. Nutritional screening: No deficits noted. 6 Tuberculosis screening: No symptoms or risk factors identified. Fall Risk None identified. Assessment: 09:44 General: Appears in no apparent distress. Behavior is calm, cooperative. 6 Vital Signs: 09:34 BP 126 / 71; Pulse 99; Resp 16; Temp 98.2(TE); Pulse Ox 100% ; Weight 72.57 kg; Height vg1 5 ft. 2 in. (157.48 cm); Pain 9/10; 11:20 BP 118 / 64; Pulse 87; Resp 18; Pulse Ox 100% ; Pain 3/10; jh6 09:34 Body Mass Index 29.26 (72.57 kg, 157.48 cm) 1 ED Course: 09:30 Patient arrived in ED. mr 09:36 Triage completed. vg1 09:36 Arm band placed on. vg1 09:40 Jaspal Olguin NP is PHCP. pm1 09:40 Leonel Root MD is Attending Physician. pm1 09:43 Honey Bazzi, SUSAN is Primary Nurse. jh6 09:43 Placed in gown. Bed in low position. Call light in reach. Side rails up X 1. 6 10:09 Assist provider with pelvic exam: Set up pelvic tray. Performed by Jaspal Olguin NP 6 Specimens sent to lab. Patient tolerated well. Administered Medications: 10:50 Drug: Rocephin (cefTRIAXone) 250 mg Route: IM; Site: right gluteus; 6 11:20 Follow up: Response: No adverse reaction [facility] 10:50 Drug: AZITHromycin 1 grams Route: PO; 6 11:20 Follow up: Response: No adverse reaction [facility] Outcome: 11:13 Discharge ordered by . pm1 11:42 Patient left the ED. pm1 11:45 Discharged to home ambulatory. [facility] 11:45 Condition: stable 11:45 Discharge instructions given to patient, Instructed on discharge instructions, follow up and referral plans. Demonstrated understanding of instructions, follow-up care, medications, Prescriptions given X 2. Signatures: Fanny Duarte Jaspal Olguin, CHANTAL METEOROLOGY TEACHER pm1 Luciana Hampton RN RN 1 Honey Bazzi, SUSAN RN 6 Corrections: (The following items were deleted from the chart) 09:37 09:36 PMHx: gestational diabetes; 1 1
--- NOTE | 2021-06-21 11:13 | EDPHYS ---
Physician Documentation [facility] Name: Jaclyn Kemp Age: 21 yrs Sex: Female : 2000 Arrival Date: 06/21/2021 Time: 09:30 Bed 6 Private MD: ED Physician Leonel Root HPI: 06/21 09:50 This 21 yrs old Female presents to ER via Ambulatory with complaints of Vaginal Pain. pm1 09:50 The patient presents with burning with urination. Onset: The symptoms/episode pm1 began/occurred 1 week(s) ago, started after rough unprotected intercourse. Modifying factors: The symptoms are alleviated by nothing, the symptoms are aggravated by urinating, sitting. Associated signs and symptoms: Pertinent negatives: diarrhea, fever, vomiting, abdominal pain. Severity of symptoms: in the emergency department the symptoms are unchanged. The patient is sexually active, reports multiple partners, does not use protection during intercourse. The patient has experienced a previous episode, similar to prior gonorrhea in the past. The patient has not recently seen a physician. 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 - Social history:: Smoking status: Patient denies any tobacco usage or history of. ROS: 09:50 Positive for urinary symptoms, Negative for vaginal bleeding, vaginal discharge, pm1 vaginal itching. 09:50 Constitutional: Negative for fever, chills, and weight loss, Cardiovascular: Negative for chest pain, palpitations, and edema, Respiratory: Negative for shortness of breath, cough, wheezing, and pleuritic chest pain. 09:50 MS/Extremity: Negative for injury and deformity, Skin: Negative for injury, rash, and discoloration. 09:50 Neuro: Negative for headache, weakness, numbness, tingling, and seizure. 09:50 Abdomen/GI: Negative for abdominal pain, nausea, vomiting, and diarrhea. 09:50 All other systems are negative. Exam: 09:50 Constitutional: This is a well developed, well nourished patient who is awake, alert, pm1 and in no acute distress. 09:50 Head/Face: Normocephalic, atraumatic. 09:50 Back: No spinal tenderness. No costovertebral tenderness. Full range of motion. Skin: Warm, dry with normal turgor. Normal color with no rashes, no lesions, and no evidence of cellulitis. MS/ Extremity: Pulses equal, no cyanosis. Neurovascular intact. Full, normal range of motion. 09:50 Cardiovascular: Exam negative for acute changes, Rate: normal, Rhythm: regular, Pulses: no pulse deficits are appreciated, Heart sounds: normal. 09:50 Respiratory: Exam negative for acute changes, respiratory distress, shortness of breath. 09:50 Abdomen/GI: Exam negative for acute changes, Inspection: abdomen appears normal, Palpation: abdomen is soft and non-tender, in all quadrants. 09:50 Neuro: Exam negative for acute changes, Orientation: is normal, Mentation: is normal, Motor: is normal, moves all fours. 10:33 : Pelvic Exam: External exam: is normal, Speculum exam: no bleeding is noted, pm1 bimanual exam reveals patient refused, discharge, yellow, Crown Wheel Assembler: Honey DAVIS. Sexual behavior: the patient is sexually active, and reports multiple partners, method of control is none. Vital Signs: 09:34 BP 126 / 71; Pulse 99; Resp 16; Temp 98.2(TE); Pulse Ox 100% ; Weight 72.57 kg; Height vg1 5 ft. 2 in. (157.48 cm); Pain 9/10; 11:20 BP 118 / 64; Pulse 87; Resp 18; Pulse Ox 100% ; Pain 3/10; jh6 09:34 Body Mass Index 29.26 (72.57 kg, 157.48 cm) vg1 MDM: 09:41 Patient medically screened. pm1 11:12 Data reviewed: vital signs. Data interpreted: Pulse oximetry: on room air is 100 %. pm1 Interpretation: normal. Counseling: I had a detailed discussion with the patient and/or guardian regarding: the historical points, exam findings, and any diagnostic results supporting the discharge/admit diagnosis, lab results, the need for outpatient follow up, to return to the emergency department if symptoms worsen or persist or if there are any questions or concerns that arise at home. 06/21 09:47 Order name: Urine Dipstick-Ancillary; Complete Time: 09:50 EDAL 06/21 09:48 Order name: Urine --Ancillary (enter results); Complete Time: 10:07 eb 06/21 10:08 Order name: Wet Prep; Complete Time: 10:27 pm1 06/21 10:08 Order name: GC (GONORR/CHLAMYDIA) Probe pm1 06/21 10:27 Order name: Urine Microscopic Only; Complete Time: 11:11 pm1 06/21 11:04 Order name: Urine Culture EDAL 06/21 10:08 Order name: Pelvic Exam Setup; Complete Time: 10:33 pm1 Administered Medications: 10:50 Drug: Rocephin (cefTRIAXone) 250 mg Route: IM; Site: right gluteus; [facility] 11:20 Follow up: Response: No adverse reaction [facility] 10:50 Drug: AZITHromycin 1 grams Route: PO; 6 11:20 Follow up: Response: No adverse reaction [facility] Disposition: 18:48 Co-signature as Attending Physician, Leonel Root MD. rn Disposition Summary: 06/21/21 11:13 Discharge Ordered Location: Home pm1 Problem: new pm1 Symptoms: have improved pm1 Condition: Stable pm1 Diagnosis - Dysuria pm1 Followup: pm1 - With: Emergency Department - When: As needed - Reason: Worsening of condition Followup: pm1 - With: Private Physician - When: 2 - 3 days - Reason: Recheck today's complaints, Continuance of care, Re-evaluation by your physician Discharge Instructions: - Discharge Summary Sheet pm1 - Dysuria pm1 Forms: - Medication Reconciliation Form pm1 - Thank You Letter pm1 - Antibiotic Education pm1 - Prescription Opioid Use pm1 - Work release form eb Prescriptions: - Bactrim DS 800-160 mg Oral Tablet - take 1 tablet by ORAL route every 12 hours for 10 days; 20 tablet; Refills: 0, pm1 Product Selection Permitted Signatures: Dispatcher [employer] Leonel Lo MD MD rn Marinas, Patrick, NP SITE SUPERVISING TECHNICAL OPERATOR pm1 Luciana Hampton, RN RN vg1 Honey Bazzi RN RN jh6 Corrections: (The following items were deleted from the chart) 09:37 09:36 PMHx: gestational diabetes; vg1 1
[2021-06-21 11:48] VITALS: BP 126/71; TEMP 98.2; O2SAT 100
[2021-06-23 12:04] LABS: C.trachomatis RNA,TMA Not Detected (Not Detected)
== END 2021-06-21 11:42 | disposition home or self-care (01) ==
LOC: ER 09:28
DX: R30.0 Dysuria (principal)
CPT/HCPCS: 87088; 87086; 81025; 87210; 87590; 87490; J0696; 81003; 81015; 96372; 99284

== ENCOUNTER 2021-11-02 13:03 | Emergency (ER) | payer OTHER ==
--- OUTSIDE RECORDS SUMMARY | 2021-11-02 13:08 | XMS REPORT | Continuity of Care Document ---
:2000 Author Organization [facility] Address [address] [place] [address] Care Team Providers Name Role Phone Unavailable Unavailable Unavailable Problems Condition Condition Condition Status Onset Resolution Last Treating Co mments Source Name Details Category Date Date Treatment Clinician Date Major Major Diagnosis Active Common depressive depressive Sp felipe disorder, disorder, - [facility] episode, episode, [facility] unspecifie unspecifie Me dical d d [place] Anxiety Anxiety Diagnosis Active Commo n disorder, disorder, Spir it unspecifie unspecifie - [facility] Sinus Sinus Problem Active Common problem problem [facility] Sore Sore Diagnosis Active Common throat throat [facility] Allergies, Adverse Reactions, Alerts Allergy Allergy Status Severity Reaction(s) Onset Inactive Treating Comm ents Source Name Type Date Date Clinician Cinnamon Adverse Active Info Not Commo n Reaction Available [facility] Medications Ordered Filled Start Stop Current Ordering Indication Dosage Frequency Signature Comments Components Source Medication Medication Date Date Medication? Clinician (SIG) Name Name Lysine Lysine Yes Maite as [place] directed [facility] Procedures This patient has no known procedures. Encounters Start End Encounter Admission Attending Care Care Encounter Source Date/Time Date/Time Type Type Clinicians Facility Department ID 2018-10-09 2018-10-09 [id number] [facility] 15:20:00 15:20:00 [facility] Results This patient has no known results.
[2021-11-02] MEDS ORDERED: DERMABOND SKIN ADHESIVE TOP ONE (14:30)
--- NOTE | 2021-11-02 15:02 | EDPHYS ---
Physician Documentation [facility] Name: Jaclyn Kemp Age: 21 yrs Sex: Female : 2000 Arrival Date: 11/02/2021 Time: 13:06 Bed DIS4 Private MD: ED Physician Juancarlos Gusman HPI: 11/02 14:37 This 21 yrs old Female presents to ER via Ambulatory with complaints of Finger Injury. [facility] 14:37 The patient or guardian reports injury, a laceration. Onset: The symptoms/episode jmm began/occurred acutely, just prior to arrival. Is a 21-year-old female with history of depression the presents emerged department with complaints of a laceration to her left index finger using a knife while cutting bread. Patient states she is up-to-date on tetanus immunization. Denies other injury.. 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 - Social history:: Smoking status: Patient denies any tobacco usage or history of. ROS: 14:37 Constitutional: Negative for fever, chills, and weight loss, Cardiovascular: Negative jmm for chest pain, palpitations, and edema, Respiratory: Negative for shortness of breath, cough, wheezing, and pleuritic chest pain. 14:37 Skin: Positive for laceration(s). 14:37 All other systems are negative. Exam: 14:37 Constitutional: This is a well developed, well nourished patient who is awake, alert, jmm and in no acute distress. Head/Face: atraumatic. Eyes: EOMI, no conjunctival erythema appreciated ENT: Moist Mucus Membranes Neck: Trachea midline, Supple Chest/axilla: Normal chest wall appearance and motion. Cardiovascular: Regular rate and rhythm. No edema appreciated Respiratory: Normal respirations, no respiratory distress appreciated Abdomen/GI: Non distended Back: Normal ROM 14:37 Skin: 1 cm laceration noted to the left index finger. 14:37 Neuro: Motor: is normal. 14:37 Psych: Behavior/mood is pleasant, cooperative. Vital Signs: 14:02 BP 124 / 83; Pulse 83; Resp 16; Temp 98.3(TE); Pulse Ox 100% on R/A; Weight 63.5 kg bm7 (R); Height 5 ft. 1 in. (154.94 cm); Pain 8/10; 14:02 Body Mass Index 26.45 (63.50 kg, 154.94 cm) bm7 MDM: 13:51 Patient medically screened. [facility] 15:01 Data reviewed: vital signs, nurses notes. Counseling: I had a detailed discussion with [facility] the patient and/or guardian regarding: the historical points, exam findings, and any diagnostic results supporting the discharge/admit diagnosis, the need for outpatient follow up, to return to the emergency department if symptoms worsen or persist or if there are any questions or concerns that arise at home. 11/02 14:09 Order name: Dermabond; Complete Time: 14:20 [facility] Administered Medications: No medications were administered Disposition Summary: 11/02/21 15:02 Discharge Ordered Location: Home [facility] Condition: Stable [facility] Diagnosis - Cutaneous Laceration of the Left Index Finger [facility] Followup: [facility] - With: Private Physician - When: 1 week - Reason: Recheck today's complaints, Continuance of care, Re-evaluation by your physician Discharge Instructions: - Discharge Summary Sheet [facility] - Laceration Care, Adult [facility] Forms: - Medication Reconciliation Form [facility] - Thank You Letter [facility] - Antibiotic Education [facility] - Work release form [facility] - Prescription Opioid Use [facility] Signatures: Sawyer Pham PA PA jmm McCarthy, Brittany, RN RN bm7 Corrections: (The following items were deleted from the chart) 15:01 14:37 Is a 21-year-old female with history of depression the presents emerged [facility] department with complaints of a laceration to her right index finger using a knife while cutting bread. Patient states she is up-to-date on tetanus immunization. Denies other injury.. [facility] 15:01 14:37 Skin: 1 cm laceration noted to the right index finger. jmm jmm
--- NOTE | 2021-11-02 15:02 | ER ---
Nurse's Notes [facility] Name: Jaclyn Kemp Age: 21 yrs Sex: Female : 2000 Arrival Date: 11/02/2021 Time: 13:06 Bed DIS4 Private MD: Diagnosis: Cutaneous Laceration of the Left Index Finger Presentation: 11/02 14:03 Chief complaint: Patient states: My boss sent me here because I cut my finger on a 7 knife while I was cutting bread. Coronavirus screen: At this time, the client does not indicate any symptoms associated with coronavirus-19. Ebola Screen: No symptoms or risks identified at this time. Initial Sepsis Screen: Does the patient meet any 2 criteria? No. Patient's initial sepsis screen is negative. Does the patient have a suspected source of infection? No. Patient's initial sepsis screen is negative. Risk Assessment: Do you want to hurt yourself or someone else? Patient reports no desire to harm self or others. Onset of symptoms was November 02, 2021. 14:03 Method Of Arrival: Ambulatory [facility] 14:03 Acuity: DAVID 4 7 Triage Assessment: 14:04 General: Appears in no apparent distress. uncomfortable, Behavior is calm, cooperative, bm7 appropriate for age. Pain: Complains of pain in palmar aspect of distal phalanx of left index finger. EENT: No deficits noted. No signs and/or symptoms were reported regarding the EENT system. Neuro: No deficits noted. Cardiovascular: No deficits noted. Respiratory: No deficits noted. GI: No deficits noted. No signs and/or symptoms were reported involving the gastrointestinal system. : No deficits noted. No signs and/or symptoms were reported regarding the genitourinary system. Derm: No deficits noted. No signs and/or symptoms reported regarding the dermatologic system. Musculoskeletal: Reports pain in palmar aspect of distal phalanx of left index finger. Injury Description: Laceration sustained to palmar aspect of distal phalanx of left index finger is jagged, 0.5 to 2.5 cm long, not bleeding, was sustained 1-2 hours ago. no active bleeding noted at this time. 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 Historical: - Allergies: 14:04 No Known Allergies; 7 - Home Meds: 14:04 control [Active]; anti depressant [Active]; 7 - PMHx: 14:04 Depressive disorder; 7 - PSHx: 14:04 section; arm; [facility] - Immunization history:: Adult Immunizations up to date, Client reports receiving the 2nd dose of the Covid vaccine, Client reports receiving the 1st dose of the Covid vaccine, Last tetanus immunization: unknown. - Social history:: Smoking status: Patient denies any tobacco usage or history of. Screenin:08 Abuse screen: Denies threats or abuse. Denies injuries from another. Nutritional jl screening: No deficits noted. Tuberculosis screening: No symptoms or risk factors identified. Fall Risk None identified. Assessment: 15:08 Reassessment: Patient appears in no apparent distress at this time. No changes from [facility] previously documented assessment. Patient and/or family updated on plan of care and expected duration. Pain level reassessed. Patient is alert, oriented x 3, equal unlabored respirations, skin warm/dry/pink. Vital Signs: 14:02 BP 124 / 83; Pulse 83; Resp 16; Temp 98.3(TE); Pulse Ox 100% on R/A; Weight 63.5 kg [facility] (R); Height 5 ft. 1 in. (154.94 cm); Pain 8/10; 14:02 Body Mass Index 26.45 (63.50 kg, 154.94 cm) [facility] ED Course: 13:06 Patient arrived in ED. rg4 13:12 Sawyer Pham PA is [facility] 13:12 Juancarlos Gusman MD is Attending Physician. [facility] 14:02 Arm band placed on right wrist. [facility] 14:04 Triage completed. 7 14:18 Clover Coates RN is Primary Nurse. jl7 15:08 Patient has correct armband on for positive identification. jl7 15:09 No provider procedures requiring assistance completed. Patient did not have IV access jl during this emergency room visit. Administered Medications: No medications were administered Medication: 15:08 VIS not applicable for this client. jl7 Outcome: 15:02 Discharge ordered by . [facility] 15:08 Discharged to home ambulatory. jl7 15:08 Condition: stable 15:08 Discharge instructions given to patient, Instructed on discharge instructions, follow up and referral plans. Demonstrated understanding of instructions, follow-up care. 15:09 Patient left the ED. jl7 Signatures: Sawyer Pham PA PA jmm Garcia, Rubi rg4 Clover Coates RN RN jl7 Lexie Campos RN RN bm7
[2021-11-02 21:31] VITALS: BP 124/83; TEMP 98.3; O2SAT 100
== END 2021-11-02 15:09 | disposition home or self-care (01) ==
LOC: ER 13:03
DX: S61.211A Laceration without foreign body of left index finger without damage to nail, initial encounter (principal); F32.A Depression, unspecified
CPT/HCPCS: 99281

== ENCOUNTER → 2023-03-20 | Emergency (ER) | payer OTHER ==
[~2023-03-20] MED LIST: KETOROLAC 30 MG/ML INJ ONE; NA CHLORIDE 0.9% 1,000 ML ONE; ONDANSETRON 4 MG/2 ML VIAL ONE
--- OUTSIDE RECORDS SUMMARY | 2023-03-20 05:39 | XMS REPORT | Continuity of Care Document ---
Author Name Unknown Address [address] [facility] [place] [address] [facility] Address [address] [facility] [address] [place] [address] Care Team Providers Care Heat Pump Installer Name Role Phone Mercedes Del Castillo Attending Clinician Ernestine e Physician, No Primary or Family Admitting Clinic merry Unavailable Payers Payer Name Policy Type Policy Number Effective Date Expirati on Date Source Problems Condition Name Condition Details Condition Category Status Onset Date Resolution Date Last Treatment Date Treating Clinician Comments Source Major depressive disorder, single episode, unspecifie d Major depressive disorder, single episode, unspecifie d Diagnosis Active [facility] Anxiety disorder, unspecifie d Anxiety disorder, unspecifie d Diagnosis Active [facility] Sinus problem Sinus problem Problem Active [facility] Sore throat Sore throat Diagnosis Active [facility] Allergies, Adverse Reactions, Alerts Allergy Name Allergy Type Status Severity Reaction(s) Onset Date Inactive Date Treating Clinician Comments Source No Known Allergie s DA Active U 07-12 00:00: 00 [facility] are Herman Cinnamon Adverse Reaction Active Info Not Available [facility] Medications Ordered Medication Name Filled Medication Name Start Date Stop Date Current Medication? Ordering Clinician Indication Dosage Frequency Signature (SIG) Comments Components Source Lysine Lysine Yes Maite Nhi as directed [facility] Encounters Start Date/Time End Date/Time Encounter Type Admission Type Attending Clinicians Care Facility Care Department Encounter ID Source 2022-07-12 23:04:41 Emergency HFD HFD [id number] [facility] Fire Departm ent 2022-07-12 19:39:00 2022-07-13 03:00:00 Emergency EM Mercedes Del Castillo ERON [id number] [address] [place] [address] 2022-07-12 18:34:32 2022-07-12 18:34:32 Emergency [id number] MAIRA RAO [id number] MAIRA 2018-10-09 15:20:00 2018-10-09 15:20:00 [facility] [id number] [facility]
[2023-03-20 06:42] LABS: Absolute Lymphocytes (CBC) 1.1 K/uL (0.7-4.9); Hematocrit 31.5 % (36.0-45.0); Lymphocytes % 19.5 % (15.3-44.8); MCV 78.8 fL (80-100); MPV 6.5 fL (7.6-11.3); Platelets 254 thou/uL (152-406)
[2023-03-20 06:45] LABS: Specific Gravity 1.023 (1.005-1.030)
[2023-03-20 06:48] LABS: Specific Gravity 1.023 (1.005-1.030); Urine Bacteria <20 /HPF (<20); Urine Bilirubin NEGATIVE (Negative); Urine Blood Negative (Negative); Urine Clarity Extremely Turbid (Clear); Urine Color Light-Yellow (Yellow); Urine Glucose NEGATIVE (Negative); Urine Mucus Slight /HPF (None Seen); Urine Protein TRACE (Negative); Urine RBC <5 /HPF (None Seen); Urine Urobilinogen Normal (Normal)
[2023-03-20 06:49] LABS: SARS-CoV-2 Antigen Rapid Res Negative (Negative)
[2023-03-20 06:54] LABS: Albumin 3.5 g/dL (3.4-5.0); Bilirubin Total 0.3 mg/dL (0.2-1.0); Potassium 3.8 mEq/L (3.5-5.1)
--- NOTE | 2023-03-20 07:30 | RAD REPORT ---
EXAM DESCRIPTION: CT - Abdomen Pelvis W Contrast - 03/20/2023 7:16 am CLINICAL HISTORY: Abdominal pain COMPARISON: none. TECHNIQUE: Computed axial tomography of the abdomen pelvis was obtained. 100 cc Isovue-300 was admin istered intravenously. Oral contrast was not requested which limits evaluation of bowel and appendix All CT scans are performed using dose optimization technique as appropriate and may include automated exposure control or mA/KV adjustment according to patient size. FINDINGS: The liver, pancreas, adrenal and kidneys appear unremarkable. Spleen 12.5 centimeters There is no evidence of diverticulitis. An abnormal appendix is not seen. 3.3 centimeter left ovarian cyst. No follow-up recommended. No significant free fluid IMPRESSION: 3.3 centimeter left ovarian cyst without significant free-fluid Borderline splenomegaly
--- NOTE | 2023-03-20 07:46 | EDPHYS ---
Physician Documentation [facility] Name: Jaclyn Kemp Age: 23 yrs Sex: Female : 2000 Arrival Date: 03/20/2023 Time: 05:37 Bed 5 Private MD: ED Physician Ike Estrella HPI: 03/20 06:41 This 23 yrs old Female presents to ER via Wheelchair with complaints of Vomiting, rn Drainage From Eye. 06:41 The patient presents to the emergency department with nausea, vomiting, abdominal pain, rn of the left upper quadrant. Onset: The symptoms/episode began/occurred yesterday. Possible causes: unknown. The symptoms are aggravated by nothing. The symptoms are alleviated by nothing. Associated signs and symptoms: Pertinent positives: abdominal pain, nausea, vomiting, Pertinent negatives: diarrhea, GI bleeding. Severity of symptoms: At their worst the symptoms were moderate in the emergency department the symptoms are unchanged. The patient has not experienced similar symptoms in the past. Patient reports left upper quadrant abdominal pain that began yesterday, associated with nausea and vomiting. Boyfriend sick with a "cold ". Patient denies fever. Now also having drainage from right eye. No diarrhea or blood in the stool.. 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 - Social history:: Smoking status: Patient denies any tobacco usage or history of. Patient uses street drugs, Methamphetamine (Meth) Patient/guardian denies using alcohol. - Family history:: not pertinent. - Hospitalizations: : No recent hospitalization is reported. ROS: 06:41 Constitutional: Negative for fever, chills, and weight loss, Eyes: Positive for rn drainage and redness to right eye Cardiovascular: Negative for chest pain, palpitations, and edema, Respiratory: Negative for shortness of breath, cough, wheezing, and pleuritic chest pain, Abdomen/GI: Positive for left upper quadrant abdominal pain and nausea/vomiting MS/Extremity: Negative for injury and deformity, Skin: Negative for injury, rash, and discoloration, Neuro: Negative for headache, weakness, numbness, tingling, and seizure, Exam: 06:41 Constitutional: This is a well developed, well nourished patient who is awake, alert, rn and in no acute distress. Head/Face: Normocephalic, atraumatic. Eyes: Right conjunctiva with injection and nonpurulent drainage. Negative for hyphema or hypopyon Cardiovascular: Regular rate and rhythm. No pulse deficits. Respiratory: No increased work of breathing, no retractions or nasal flaring. Abdomen/GI: Soft, mild left upper quadrant tenderness along costal margin. No swelling or peritoneal signs. Vital Signs: 05:54 BP 138 / 89; Resp 16 S; Pulse Ox 98% on R/A; Weight 63.5 kg (R); Height 5 ft. 2 in. ; lg3 Pain 8/10; 06:39 BP 129 / 93; Pulse 75; Resp 17 S; Pulse Ox 100% on R/A; ha1 08:30 BP 137 / 87; Pulse 77; Resp 18; Temp 97.7(O); Pulse Ox 98% on R/A; ph 05:54 Body Mass Index 25.61 (63.50 kg, 157.48 cm) lg3 05:54 Pain Scale: Adult lg3 MDM: 05:44 Patient medically screened. rn 08:02 Differential diagnosis: Gastroenteritis, bowel obstruction, cholecystitis, viral rt syndrome, viral enteritis. Data reviewed: vital signs, nurses notes, lab test result(s), radiologic studies. I considered the following discharge prescriptions or medication management in the emergency department Medications were administered in the Emergency Department. See MAR. Independent interpretation of the following test(s) in the Emergency Department CT Scan: My interpretation is No bowel obstruction seen on interpretation of CT scan images. Test considered but Not performed: Ultrasound No cholelithiasis, present indicated, no signs or symptoms to suggest ovarian torsion, pain is not local to the area of the ovarian cyst, ultrasound not indicated to rule out ovarian torsion.. Counseling: I had a detailed discussion with the patient and/or guardian regarding the historical points, exam findings, and any diagnostic results supporting the discharge/admit diagnosis, lab results, radiology results, the need for outpatient follow up, to return to the emergency department if symptoms worsen or persist or if there are any questions or concerns that arise at home. Response to treatment: the patient's symptoms have markedly improved after treatment. 03/20 06:02 Order name: CBC with Diff; Complete Time: 06:58 rn 03/20 06:02 Order name: CMP; Complete Time: 06:58 rn 03/20 06:02 Order name: Lipase; Complete Time: 06:58 rn 03/20 06:02 Order name: Test, Urine; Complete Time: 06:58 rn 03/20 06:02 Order name: Urinalysis w/ reflexes; Complete Time: 06:58 rn 03/20 06:02 Order name: SARS RAPID; Complete Time: 06:58 rn 03/20 06:02 Order name: Flu; Complete Time: 06:58 rn 03/20 06:02 Order name: CT Abd/Pelvis - IV Contrast Only; Complete Time: 07:36 rn 03/20 06:02 Order name: IV Saline Lock; Complete Time: 06:31 rn 03/20 06:02 Order name: Labs collected and sent; Complete Time: 06:31 rn Administered Medications: 06:37 Drug: NS 0.9% IV 1000 ml IV at 1 bolus Per protocol; 1000 mL bolus Route: IV; Rate: 1 ha1 bolus; Site: right antecubital; 06:37 Drug: Ondansetron IVP 4 mg IVP once; over 2 minutes Route: IVP; Site: right antecubital;ha1 08:30 Drug: Ketorolac IVP 30 mg IVP once Route: IVP; Site: right antecubital; ph 08:46 Follow up: Response: No adverse reaction ph Disposition Summary: 03/20/23 07:46 Discharge Ordered Notes: Location: Home rt Problem: new rt Symptoms: have improved rt Condition: Stable rt Diagnosis - Nausea with vomiting, unspecified rt - Unspecified conjunctivitis rt Followup: rt - With: Private Physician - When: 2 - 3 days - Reason: Discharge Instructions: - Discharge Summary Sheet rt - Nausea and Vomiting, Adult rt - Viral Conjunctivitis, Adult rt Forms: - Medication Reconciliation Form rt - Thank You Letter rt - Antibiotic Education rt - Prescription Opioid Use rt - Patient Portal Instructions rt - Leadership Thank You Letter rt Prescriptions: - ondansetron 4 mg Oral Tablet,disintegrating - take 1 tablet ORAL route every 6 hours as needed for nausea; 18 tablet; rt Refills: 0, Product Selection Permitted - Erythromycin 5 mg/gram (0.5 %) Ophthalmic ointment - apply 1 centimeter OPHTHALMIC route 2-3 times daily for 7 days; 1 Each; rt Refills: 0, Product Selection Permitted Signatures: Dispatcher [employer] Leonel Lo MD MD rn Hall, Patricia, RN RN Kenzie Allerd RN RN lg3 Amaya Roland RN RN ha1 Ike Estrella MD MD rt Corrections: (The following items were deleted from the chart) 05:57 05:56 Home Meds: anti depressant; lg3 lg3 05:57 05:56 Home Meds: control; lg3 lg3
--- NOTE | 2023-03-20 07:46 | ER ---
Nurse's Notes [facility] Name: Jaclyn Kemp Age: 23 yrs Sex: Female : 2000 Arrival Date: 03/20/2023 Time: 05:37 Bed 5 Private MD: Diagnosis: Nausea with vomiting, unspecified;Unspecified conjunctivitis Presentation: 03/20 05:54 Chief complaint: Patient states: left rib pain and vomiting beginning yesterday and i lg3 think i have pink eye in my right eye. Coronavirus screen: Client denies travel out of the [place] in the last 14 days. At this time, the client does not indicate any symptoms associated with coronavirus-19. Ebola Screen: No symptoms or risks identified at this time. Initial Sepsis Screen: Does the patient meet any 2 criteria? No. Patient's initial sepsis screen is negative. Does the patient have a suspected source of infection? No. Patient's initial sepsis screen is negative. Risk Assessment: Do you want to hurt yourself or someone else? Patient reports no desire to harm self or others. Onset of symptoms was March 19, 2023. 05:54 Method Of Arrival: Wheelchair lg3 05:54 Acuity: DAVID 3 lg3 Triage Assessment: 05:56 General: Appears in no apparent distress. comfortable, Behavior is calm, cooperative. lg3 Pain: Complains of pain in left rib, right eye. EENT: Eyes are tearing on right eye with exudate noted from right eye Sclera/Cornea are reddened in right eye. Neuro: No deficits noted. Liang Agitation-Sedation Scale (RASS): 0 - Alert and Calm Level of Consciousness is awake, alert, obeys commands, Oriented to person, place, time, situation. Cardiovascular: No deficits noted. Denies chest pain, shortness of breath, Capillary refill < 3 seconds Clubbing of nail beds is absent JVD is absent Patient's skin is warm and dry. Respiratory: No deficits noted. Airway is patent Respiratory effort is even, unlabored, Respiratory pattern is regular, symmetrical. GI: Abdomen is round non-distended, Reports upper abdominal pain, nausea, vomiting. : No deficits noted. No signs and/or symptoms were reported regarding the genitourinary system. Derm: No deficits noted. No signs and/or symptoms reported regarding the dermatologic system. Skin is intact, is healthy with good turgor, Skin is dry, Skin is normal, Skin temperature is warm. Musculoskeletal: No deficits noted. Circulation, motion, and sensation intact. Range of motion: intact in all extremities. 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 - Social history:: Smoking status: Patient denies any tobacco usage or history of. Patient uses street drugs, Methamphetamine (Meth) Patient/guardian denies using alcohol. - Family history:: not pertinent. - Hospitalizations: : No recent hospitalization is reported. Screenin:59 [facility] ED Fall Risk Assessment (Adult) History of falling in the last 3 months, lg3 including since admission No falls in past 3 months (0 pts). Abuse screen: Denies threats or abuse. Denies injuries from another. Nutritional screening: No deficits noted. Tuberculosis screening: No symptoms or risk factors identified. Assessment: 06:00 General: Appears uncomfortable, Behavior is calm, cooperative. Pain: Complains of pain ha1 in right upper quadrant Pain does not radiate. Pain currently is 10 out of 10 on a pain scale. Quality of pain is described as throbbing. Neuro: Level of Consciousness is awake, alert, obeys commands, Oriented to person, place, time, situation. Cardiovascular: Capillary refill < 3 seconds Patient's skin is warm and dry. Respiratory: Airway is patent Respiratory effort is even, unlabored, Respiratory pattern is regular, symmetrical. GI: Abdomen is round non-distended, Bowel sounds present X 4 quads. Reports lower abdominal pain, upper abdominal pain, nausea, vomiting. Vital Signs: 05:54 BP 138 / 89; Resp 16 S; Pulse Ox 98% on R/A; Weight 63.5 kg (R); Height 5 ft. 2 in. ; lg3 Pain 8/10; 06:39 BP 129 / 93; Pulse 75; Resp 17 S; Pulse Ox 100% on R/A; ha1 08:30 BP 137 / 87; Pulse 77; Resp 18; Temp 97.7(O); Pulse Ox 98% on R/A; ph 05:54 Body Mass Index 25.61 (63.50 kg, 157.48 cm) lg3 05:54 Pain Scale: Adult lg3 ED Course: 05:42 Patient arrived in ED. ag3 05:44 Leonel Root MD is Attending Physician. rn 05:56 Triage completed. lg3 05:56 Arm band placed on right wrist. lg3 05:59 Patient has correct armband on for positive identification. lg3 06:31 Inserted saline lock: 20 gauge in right antecubital area, using aseptic technique. rv1 Blood collected. 06:31 Flu Sent. rv1 06:31 SARS RAPID Sent. rv1 06:31 CBC with Diff Sent. rv1 06:31 CMP Sent. rv1 06:31 Lipase Sent. rv1 06:31 Test, Urine Sent. rv1 06:31 Urinalysis w/ reflexes Sent. rv1 06:57 Attending Physician role handed off by Leonel Root MD rt 06:57 Ike Estrella MD is Attending Physician. rt 07:18 CT Abd/Pelvis - IV Contrast Only In Process Unspecified. EDMS 08:20 Mai Acosta, RN is Primary Nurse. ph 08:30 No provider procedures requiring assistance completed. IV discontinued, intact, ph bleeding controlled, No redness/swelling at site. Pressure dressing applied. Administered Medications: 06:37 Drug: NS 0.9% IV 1000 ml IV at 1 bolus Per protocol; 1000 mL bolus Route: IV; Rate: 1 ha1 bolus; Site: right antecubital; 06:37 Drug: Ondansetron IVP 4 mg IVP once; over 2 minutes Route: IVP; Site: right antecubital;ha1 08:30 Drug: Ketorolac IVP 30 mg IVP once Route: IVP; Site: right antecubital; ph 08:46 Follow up: Response: No adverse reaction ph Medication: 08:31 VIS not applicable for this client. ph Outcome: 07:46 Discharge ordered by MD. rt 09:05 Discharged to home ambulatory, ph 09:05 Condition: good 09:05 Discharge instructions given to patient, Instructed on discharge instructions, follow up and referral plans. medication usage, Demonstrated understanding of instructions, follow-up care, medications, Prescriptions given X 2, 09:07 Patient left the ED. ph Signatures: Dispatcher [employer] EDMS Leonel Root MD MD rn Hall, Patricia, RN RN ph Corin Worrell 3 Kenzie Allred RN RN lg3 Amaya Roland RN RN ha1 Ike Estrella MD MD rt Villegas, Rebecca 1 Corrections: (The following items were deleted from the chart) 05:57 05:56 Home Meds: anti depressant; lg3 lg3 05:57 05:56 Home Meds: control; lg3 lg3
[2023-03-20 09:58] VITALS: BP 137/87; TEMP 97.7; O2SAT 98
== END ==
LOC: ER 05:37
DX: R11.2 Nausea with vomiting, unspecified (principal); H10.9 Unspecified conjunctivitis; Z11.52 Encounter for screening for COVID-19
CPT/HCPCS: 85025; 81001; 36415; 81025; 83690; 80053; 87804 ×2; 74177; 87811; Q9967; J2405; J7030

== ENCOUNTER → 2023-03-22 | Emergency (ER) | payer OTHER ==
[~2023-03-22] MED LIST changes: +HYDROCODONE/APAP 5/325 MG TAB ONE; -NA CHLORIDE 0.9% 1,000 ML ONE; -ONDANSETRON 4 MG/2 ML VIAL ONE
--- OUTSIDE RECORDS SUMMARY | 2023-03-22 20:19 | XMS REPORT | Continuity of Care Document ---
Author Name Unknown Address [address] [facility] [place] [address] [facility] Address [address] [facility]. [address] [place] [address] Care Team Providers Care Pest Control Chemical Technician Name Role Phone Mercedes Del Castillo Attending [...] disorder, single episode, unspecifie d Diagnosis Active [facility] Anxiety disorder, unspecifie d Anxiety disorder, unspecifie d Diagnosis Active [facility] Sinus problem Sinus problem Problem Active [facility] Sore throat Sore throat Diagnosis Active [facility] Allergies, Adverse Reactions, Alerts Allergy Name Allergy Type Status Severity Reaction(s) Onset Date Inactive Date Treating Clinician Comments Source No Known Allergie s DA Active U 07-12 00:00: 00 [facility] are [facility] Adverse Reaction Active Info Not Available [facility] Medications Ordered Medication Name Filled Medication Name Start Date Stop Date Current Medication? Ordering Clinician Indication Dosage Frequency Signature (SIG) Comments Components Source Lysine Lysine Yes Maite Nhi as directed [facility] Encounters Start Date/Time End Date/Time Encounter Type Admission Type Attending Clinicians Care Facility Care Department Encounter ID Source 2022-07-12 23:04:41 Emergency HFD HFD [id number] [facility] Fire Departm ent 2022-07-12 19:39:00 2022-07-13 03:00:00 Emergency [facility] [id number] are [facility] 2022-07-12 18:34:32 2022-07-12 18:34:32 Emergency [id number] MAIRA MAIRA [id number] MAIRA 2018-10-09 15:20:00 2018-10-09 15:20:00 [facility] [id number] [facility]
--- NOTE | 2023-03-22 21:29 | RAD REPORT ---
EXAM DESCRIPTION: US - Transvaginal Study Probe - 03/22/2023 9:10 pm CLINICAL HISTORY: Pelvic pain COMPARISON: none FINDINGS: The uterus measures 8 x 3 x 5 cm. A fibroid is not seen. The endometrial stripe measures 6 millimeters Right ovary not seen secondary to overlying bowel gas. The left ovary measures 5.2 x 3.2 x 3 centimeters. It contains a 2.3 centimeter hemorrhagic cyst. Blo od flow is present the left ovary The right and left adnexa unremarkable No significant free fluid is seen. IMPRESSION: 2.3 centimeter hemorrhagic left ovarian cyst. No followup imaging recommended
--- NOTE | 2023-03-22 21:33 | EDPHYS ---
Physician Documentation [facility] Name: Jaclyn Kemp Age: 23 yrs Sex: Female : 2000 Arrival Date: 03/22/2023 Time: 20:17 Bed 13 Private MD: ED Physician Hussain Acevedo HPI: 03/22 21:10 This 23 yrs old Female presents to ER via Ambulatory with complaints of Abdominal Pain. kb 21:10 Patient is a 23-year-old female with lower abdominal pain for 2 days. States she was kb seen here and diagnosed with a ovarian cyst. States her period started today and the pain got worse. Denies nausea, vomiting, diarrhea.. 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 - Social history:: Smoking status: Patient denies any tobacco usage or history of. Patient uses street drugs, Methamphetamine (Meth) Patient/guardian denies using alcohol. ROS: 21:10 Constitutional: Negative for fever, chills, and weight loss, kb 21:10 Abdomen/GI: Positive for abdominal pain, Negative for nausea, vomiting, and diarrhea, 21:10 All other systems are negative, Exam: 21:10 Constitutional: This is a well developed, well nourished patient who is awake, alert, kb and in no acute distress. Head/Face: Normocephalic, atraumatic. ENT: Moist Mucous membranes Cardiovascular: Regular rate Respiratory: Respirations even and unlabored. No increased work of breathing. Talking in full sentences Skin: Warm, dry with normal turgor. Normal color. MS/ Extremity: Pulses equal, no cyanosis. Neurovascular intact. Full, normal range of motion. Neuro: Awake and alert, GCS 15, oriented to person, place, time, and situation. Moves all extremities. Normal gait. 21:10 Abdomen/GI: Inspection: abdomen appears normal, Bowel sounds: normal, Palpation: soft, in all quadrants, mild abdominal tenderness, in the left lower quadrant, Vital Signs: 20:24 BP 130 / 96; Pulse 88; Resp 16; Temp 98.3(TE); Pulse Ox 99% on R/A; Weight 63.5 kg (R); km8 Height 5 ft. 2 in. (R); Pain 10/10; 21:48 BP 128 / 84; Pulse 85; Resp 16; Pulse Ox 100% on R/A; km8 20:24 Body Mass Index 25.61 (63.50 kg, 157.48 cm) 8 20:24 Pain Scale: Adult 8 [place] Coma Score: 20:30 Eye Response: spontaneous(4). Motor Response: obeys commands(6). Verbal Response: ap3 oriented(5). Total: 15. MDM: 20:22 Patient medically screened. kb 21:10 Differential diagnosis: Dysmenorrhea, non-specific abd pain, Ovarian Torsion, Ovarian kb cyst. Data reviewed: vital signs, nurses notes. External Records Reviewed: Previous ED record reviewed. 3.3 cm left ovarian cyst on CT.. 21:31 Counseling: I had a detailed discussion with the patient and/or guardian regarding the kb historical points, exam findings, and any diagnostic results supporting the discharge/admit diagnosis, radiology results, the need for outpatient follow up, an OB/Gyne specialist, to return to the emergency department if symptoms worsen or persist or if there are any questions or concerns that arise at home. 03/22 20:31 Order name: US Transvaginal Study (Probe); Complete Time: 21:31 kb Administered Medications: 21:16 Drug: Ketorolac IVP 15 mg IVP once Route: IVP; Site: right antecubital; km8 21:39 Follow up: Response: No adverse reaction 8 21:44 Drug: HYDROcodone-acetaminophen PO 5 mg-325 mg 1 tabs PO once Route: PO; me1 21:49 Follow up: Response: Medication administered at discharge. km8 Disposition: 23:56 Co-signature as Attending Physician, Hussain Acevedo MD I agree with the assessment sp4 and plan of care. I reviewed the patient's care provided by the Advanced Practice Provider and agree with the diagnosis and treatment plan. Disposition Summary: 03/22/23 21:32 Discharge Ordered Notes: Location: Home kb Condition: Stable kb Diagnosis - Other ovarian cysts kb Followup: kb - With: Emergency Department - When: As needed - Reason: Worsening of condition Followup: kb - With: Private Physician - When: 2 - 3 days - Reason: Recheck today's complaints, Continuance of care, Re-evaluation by your physician Discharge Instructions: - Discharge Summary Sheet kb - Ovarian Cyst, [id number] kb Forms: - Medication Reconciliation Form kb - Thank You Letter kb - Antibiotic Education kb - Prescription Opioid Use kb - Patient Portal Instructions kb - Leadership Thank You Letter kb Prescriptions: - Diclofenac Sodium 75 mg Oral tablet, delayed release (enteric coated) - take 1 tablet ORAL route 2 times per day As needed; 30 tablet; Refills: 0, kb Product Selection Permitted Signatures: Dispatcher [employer] EDMS Aleshia Tirado, TEMPLATE WORKER-C TEMPLATE WORKER-Hussain Pascal MD MD sp4 Preethi Dempsey RN RN pa1 Nella Hickey RN RN km8 Corrections: (The following items were deleted from the chart) 20:27 20:27 PSHx: arm; km8 km8 20:30 20:27 Social history: Smoking status: Patient denies any tobacco usage or history of. km8 Patient/guardian denies using alcohol, street drugs, km8
--- NOTE | 2023-03-22 21:33 | ER ---
Nurse's Notes [facility] Name: Jaclyn Kemp Age: 23 yrs Sex: Female : 2000 Arrival Date: 03/22/2023 Time: 20:17 Bed 13 Private MD: Diagnosis: Other ovarian cysts Presentation: 03/22 20:24 Chief complaint: Patient states: LLQ ABD pain starting last night with n/v/d; pt km8 reports hx of ovarian cysts. Coronavirus screen: Client denies travel out of the [place] in the last 14 days. Ebola Screen: No symptoms or risks identified at this time. Initial Sepsis Screen: Does the patient meet any 2 criteria? No. Patient's initial sepsis screen is negative. Does the patient have a suspected source of infection? No. Patient's initial sepsis screen is negative. Risk Assessment: Do you want to hurt yourself or someone else? Patient reports no desire to harm self or others. Onset of symptoms was March 20, 2023. 20:24 Method Of Arrival: Ambulatory 8 20:24 Acuity: DAVID 3 km8 Triage Assessment: 20:27 General: Appears in no apparent distress. uncomfortable, Behavior is calm, cooperative, km8 appropriate for age. Pain: Complains of pain in left lower quadrant Pain currently is 10 out of 10 on a pain scale. EENT: No signs and/or symptoms were reported regarding the EENT system. Neuro: Level of Consciousness is awake, alert, obeys commands, Oriented to person, place, time, situation. Cardiovascular: Denies chest pain, shortness of breath, Capillary refill < 3 seconds Patient's skin is warm and dry. Respiratory: Airway is patent Respiratory effort is even, unlabored, Respiratory pattern is regular, symmetrical. GI: Reports lower abdominal pain, diarrhea, nausea, vomiting. : No signs and/or symptoms were reported regarding the genitourinary system. Derm: Skin is intact, is healthy with good turgor, Skin is dry, Skin is pink, warm \T\ dry. normal, Skin temperature is warm. Musculoskeletal: No signs and/or symptoms reported regarding the musculoskeletal system. Range of motion: intact in all extremities. 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 - Social history:: Smoking status: Patient denies any tobacco usage or history of. Patient uses street drugs, Methamphetamine (Meth) Patient/guardian denies using alcohol. Screenin:30 [facility] ED Fall Risk Assessment (Adult) History of falling in the last 3 months, ap3 including since admission No falls in past 3 months (0 pts) Confusion or Disorientation No (0 pts) Intoxicated or Sedated No (0 pts) Impaired Gait No (0 pts) Mobility Assist Device Used No (0 pt) Altered Elimination No (0 pt) Score/Fall Risk Level 0 - 2 = Low Risk Oriented to surroundings, Maintained a safe environment, Educated pt \T\ family on fall prevention, incl call for assistance when getting out of bed, Assessed \T\ reinforced patient's understanding of fall precautions. Abuse screen: Denies threats or abuse. Denies injuries from another. Nutritional screening: No deficits noted. Tuberculosis screening: No symptoms or risk factors identified. Assessment: 20:30 General: see triage assessment/notes. ap3 Vital Signs: 20:24 BP 130 / 96; Pulse 88; Resp 16; Temp 98.3(TE); Pulse Ox 99% on R/A; Weight 63.5 kg (R); km8 Height 5 ft. 2 in. (R); Pain 10/10; 21:48 BP 128 / 84; Pulse 85; Resp 16; Pulse Ox 100% on R/A; km8 20:24 Body Mass Index 25.61 (63.50 kg, 157.48 cm) [facility] 20:24 Pain Scale: Adult [facility] [place] Coma Score: 20:30 Eye Response: spontaneous(4). Motor Response: obeys commands(6). Verbal Response: ap3 oriented(5). Total: 15. ED Course: 20:20 Patient arrived in ED. im 20:21 A[facility] Tirado [facility]C [facility] kb 20:21 Hussain Acevedo MD is Attending Physician. kb 20:27 Triage completed. km8 20:27 Arm band placed on right wrist. km8 20:30 Patient has correct armband on for positive identification. Bed in low position. Call ap3 light in reach. Side rails up X 1. Pulse ox on. NIBP on. Door closed. Noise minimized. 20:30 No provider procedures requiring assistance completed. Patient maintains SpO2 ap3 saturation greater than 95% on room air. 20:34 Inserted saline lock: 20 gauge in right antecubital area, using aseptic technique. ap3 20:59 Patient taken to ultrasound. via wheelchair. ap3 21:12 US Transvaginal Study (Probe) In Process Unspecified. EDPA 21:39 Preethi Dempsey, RN is Primary Nurse. va1 21:49 Provided Education on: d/c teaching. km8 21:49 IV discontinued, intact, bleeding controlled, No redness/swelling at site. Pressure km8 dressing applied. Administered Medications: 21:16 Drug: Ketorolac IVP 15 mg IVP once Route: IVP; Site: right antecubital; km8 21:39 Follow up: Response: No adverse reaction km8 21:44 Drug: HYDROcodone-acetaminophen PO 5 mg-325 mg 1 tabs PO once Route: PO; va1 21:49 Follow up: Response: Medication administered at discharge. km8 Medication: 20:30 VIS not applicable for this client. ap3 Outcome: 21:32 Discharge ordered by MD. kb 21:49 Discharged to home ambulatory, with family, km8 21:49 Condition: good 21:49 Discharge instructions given to patient, family, Instructed on discharge instructions, follow up and referral plans. medication usage, Demonstrated understanding of instructions, follow-up care, medications, Prescriptions given X 1, 21:49 Patient left the ED. km8 Signatures: Dispatcher [employer] EDPA Aleshia Tirado, Carina Owen RN RN ap3 Sarah Mora Michelle, RN RN va1 Nella Hickey, SUSAN RN km8 Corrections: (The following items were deleted from the chart) 20:27 20:27 PSHx: arm; km8 km8 20:30 20:27 Social history: Smoking status: Patient denies any tobacco usage or history of. km8 Patient/guardian denies using alcohol, street drugs, km8
[2023-03-23 00:31] VITALS: BP 128/84; TEMP 98.3; O2SAT 100
== END ==
LOC: ER 20:17
DX: N83.299 Other ovarian cyst, unspecified side (principal)
CPT/HCPCS: 76830

== ENCOUNTER → 2023-03-25 | Emergency (ER) | payer OTHER ==
[~2023-03-25] MED LIST changes: +FAMOTIDINE 20 MG/2 ML VIAL IV ONE; +FENTANYL CITR 100 MCG/2 ML ONE; -HYDROCODONE/APAP 5/325 MG TAB ONE; -KETOROLAC 30 MG/ML INJ ONE; +NA CHLORIDE 0.9% 1,000 ML ONE
--- OUTSIDE RECORDS SUMMARY | 2023-03-25 05:39 | XMS REPORT | Continuity of Care Document ---
Author Name Unknown Address [address] [facility] [facility] [address] [place] [address] [facility] Address [address] [place] [address] Care Team Providers Care Clinical Data Abstractor Name Role Phone Mercedes Del Castillo Attending [...] disorder, single episode, unspecifie d Diagnosis Active [facility] Anxiety disorder, unspecifie d Anxiety disorder, unspecifie d Diagnosis Active [facility] Sinus problem Sinus problem Problem Active [facility] Sore throat Sore throat Diagnosis Active [facility] Allergies, Adverse Reactions, Alerts Allergy Name Allergy Type Status Severity Reaction(s) Onset Date Inactive Date Treating Clinician Comments Source No Known Allergie s DA Active U 07-12 00:00: 00 [facility] Ad[facility] Reaction Active Info Not Available [facility] Medications Ordered Medication Name Filled Medication Name Start Date Stop Date Current Medication? Ordering Clinician Indication Dosage Frequency Signature (SIG) Comments Components Source Lysine Lysine Yes Maite Nhi as directed [facility] Encounters Start Date/Time End Date/Time Encounter Type Admission Type Attending Clinicians Care Facility Care Department Encounter ID Source 2022-07-12 23:04:41 Emergency [facility] [id number] [facility] Departm ent 2022-07-12 19:39:00 2022-07-13 03:00:00 [facility] [id number] are [facility] 2022-07-12 18:34:32 2022-07-12 18:34:32 Emergency [id number] MAIRA MAIRA [id number] MAIRA 2018-10-09 15:20:00 2018-10-09 15:20:00 [facility] Ren[facility] [id number] [facility]
[2023-03-25 06:12] LABS: Absolute Lymphocytes (CBC) 1.2 K/uL (0.7-4.9); Hematocrit 29.5 % (36.0-45.0); Lymphocytes % 30.7 % (15.3-44.8); MCV 78.9 fL (80-100); MPV 6.7 fL (7.6-11.3); Platelets 235 thou/uL (152-406); RBC Red Blood Cell Count 3.73 M/uL (3.86-4.86)
[2023-03-25 06:37] LABS: Urine Bacteria None Seen /HPF (<20); Urine Mucus Slight /HPF (None Seen); Urine RBC <5 /HPF (None Seen)
[2023-03-25 06:38] LABS: Specific Gravity 1.007 (1.005-1.030); Urine Bilirubin NEGATIVE (Negative); Urine Blood 3+ (OVER) (Negative); Urine Clarity Turbid (Clear); Urine Color Colorless (Yellow); Urine Glucose NEGATIVE (Negative); Urine Protein NEGATIVE (Negative); Urine Urobilinogen Normal (Normal)
[2023-03-25 06:38] LABS: Bilirubin Total 0.3 mg/dL (0.2-1.0); Potassium 3.6 mEq/L (3.5-5.1); Protein, Total 7.8 g/dL (6.4-8.2)
--- NOTE | 2023-03-25 07:18 | EDPHYS ---
Physician Documentation [facility] Name: Jaclyn Kemp Age: 23 yrs Sex: Female : 2000 Arrival Date: 03/25/2023 Time: 05:37 Bed 5 Private MD: ED Physician Petey Caldera HPI: 03/25 07:13 This 23 yrs old Female presents to ER via EMS with complaints of Vaginal Bleeding, sp3 Abdominal Pain. 07:13 23-year-old female with a history of depression, ovarian cysts presents with recurrent sp3 abdominal pain. Patient was seen over the last week multiple times and has had negative CT scan of the abdomen pelvis, negative ultrasound with exception of an ovarian cyst hemorrhagic in nature, normal laboratory values. She comes in again for recurrent pain stating that it is not "going away". She denies fever, vomiting, diarrhea, chest pain, shortness of breath, syncope, bleeding anywhere else, any other signs or symptoms on ROS at this time.. Historical: - Allergies: 05:40 No Known Allergies; km8 - PMHx: 05:40 depressive disorder; ovarian cysts (depressive disorder); km8 - PSHx: 05:40 section; left elbow (an); km8 - Immunization history:: Client reports receiving the 2nd dose of the Covid vaccine, Flu vaccine is not up to date. - Social history:: Smoking status: Patient denies any tobacco usage or history of. 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 ROS: 07:15 Constitutional: Negative for fever, chills, and weight loss, Eyes: Negative for injury, sp3 pain, redness, and discharge, ENT: Negative for injury, pain, and discharge, Neck: Negative for injury, pain, and swelling, Cardiovascular: Negative for chest pain, palpitations, and edema, Respiratory: Negative for shortness of breath, cough, wheezing, and pleuritic chest pain, Back: Negative for injury and pain, MS/Extremity: Negative for injury and deformity, Skin: Negative for injury, rash, and discoloration, Neuro: Negative for headache, weakness, numbness, tingling, and seizure, Psych: Negative for depression, anxiety, suicide ideation, homicidal ideation, and hallucinations, Allergy/Immunology: Negative for hives, rash, and allergies, Endocrine: Negative for neck swelling, polydipsia, polyuria, polyphagia, and marked weight changes, 07:15 All other systems are negative, Exam: 07:15 Constitutional: This is a well developed, well nourished patient who is awake, alert, sp3 and in no acute distress. Head/Face: Normocephalic, atraumatic. Eyes: Pupils equal round and reactive to light, extra-ocular motions intact. Lids and lashes normal. Conjunctiva and sclera are non-icteric and not injected. Cornea within normal limits. Periorbital areas with no swelling, redness, or edema. Neck: Trachea midline, no thyromegaly or masses palpated, and no cervical lymphadenopathy. Supple, full range of motion without nuchal rigidity, or vertebral point tenderness. No Meningismus. Chest/axilla: Normal chest wall appearance and motion. Nontender with no deformity. No lesions are appreciated. Cardiovascular: Regular rate and rhythm with a normal S1 and S2. No gallops, murmurs, or rubs. Normal PMI, no JVD. No pulse deficits. Respiratory: Lungs have equal breath sounds bilaterally, clear to auscultation and percussion. No rales, rhonchi or wheezes noted. No increased work of breathing, no retractions or nasal flaring. Back: No spinal tenderness. No costovertebral tenderness. Full range of motion. Skin: Warm, dry with normal turgor. Normal color with no rashes, no lesions, and no evidence of cellulitis. MS/ Extremity: Pulses equal, no cyanosis. Neurovascular intact. Full, normal range of motion. Neuro: Awake and alert, GCS 15, oriented to person, place, time, and situation. Cranial nerves II-XII grossly intact. Motor strength 5/5 in all extremities. Sensory grossly intact. Cerebellar exam normal. Normal gait. Vital Signs: 05:39 BP 133 / 80; Pulse 76; Resp 16; Temp 98.6(IR); Pulse Ox 100% on R/A; Weight 63.5 kg km8 (R); Height 5 ft. 2 in. (R); Pain 10/10; 06:00 BP 136 / 83; Pulse 82; Resp 16; Pulse Ox 100% on R/A; km8 05:39 Body Mass Index 25.61 (63.50 kg, 157.48 cm) km8 05:39 Pain Scale: Adult km8 [place] Coma Score: 05:43 Eye Response: spontaneous(4). Motor Response: obeys commands(6). Verbal Response: km8 oriented(5). Total: 15. MDM: 05:51 Patient medically screened. ci 07:16 Data reviewed: vital signs, nurses notes, old medical records, lab test result(s). ED sp3 course: 23-year-old female with recurrent abdominal pain. I believe at this time patient's pain is chronic in nature. Patient is also asking multiple times for pain medication and a drug seeking fashion. I am not comfortable giving further narcotics at this time. Patient vital signs are normal and she is talking on the phone in no acute distress. Given her workup today, plan is to have her follow-up with FINANCIAL ADVISOR TRAINEE for any gynecological care and potential dysfunctional menstrual cycle. However today there is no acute emergency and patient will be safely discharged at this time.. 03/25 05:49 Order name: CBC with Diff; Complete Time: 07:13 ci 02/03 05:49 Order name: CMP; Complete Time: 07:13 ci 02/03 05:49 Order name: Lipase; Complete Time: 07:13 ci 02/03 05:49 Order name: Test, Urine; Complete Time: 07:13 ci 02/03 05:49 Order name: Urinalysis w/ reflexes; Complete Time: 07:13 ci 02/03 05:49 Order name: IV Saline Lock; Complete Time: 05:51 ci 02/03 05:49 Order name: Labs collected and sent; Complete Time: 05:51 ci Administered Medications: 05:59 Drug: Famotidine IVP 20 mg IVP once; dilute with 10 mL 0.9% NaCl; give over 2 minutes rv Route: IVP; Site: right antecubital; 06:49 Follow up: Response: No adverse reaction km8 05:59 Drug: NS 0.9% IV 1000 ml IV at 1 bolus Per protocol; 1000 mL bolus Route: IV; Rate: 1 rv bolus; Site: right antecubital; 06:49 Drug: fentaNYL (PF) IVP 25 mcg IVP once Route: IVP; Site: right antecubital; km8 Disposition Summary: 03/25/23 07:17 Discharge Ordered Notes: Location: Home sp3 Condition: Stable sp3 Diagnosis - Abdominal pain sp3 Followup: sp3 - With: Private Physician - When: Upon discharge from the Emergency Department - Reason: Continuance of care Followup: sp3 - With: Ludwig Sheppard MD - When: Upon discharge from the Emergency Department - Reason: Continuance of care Discharge Instructions: - Discharge Summary Sheet sp3 - Abdominal Pain, Adult sp3 Forms: - Medication Reconciliation Form sp3 - Thank You Letter sp3 - Antibiotic Education sp3 - Prescription Opioid Use sp3 - Patient Portal Instructions sp3 - Leadership Thank You Letter sp3 Signatures: Dispatcher [employer] EDMS Elvin Eugene, RN RN rv Petey Caldera MD MD sp3 IhJoão manuel Katie RN RN km8
--- NOTE | 2023-03-25 07:18 | ER ---
Nurse's Notes [facility] Name: Jaclyn Kemp Age: 23 yrs Sex: Female : 2000 Arrival Date: 03/25/2023 Time: 05:37 Bed 5 Private MD: Diagnosis: Abdominal pain Presentation: 03/25 05:39 Chief complaint: EMS states: tone out for LUQ pain starting last night with vaginal km8 bleeding starting this morning; pt seen here recently and diagnosed with ovarian cysts. Coronavirus screen: Client denies travel out of the [place] in the last 14 days. Ebola Screen: No symptoms or risks identified at this time. Initial Sepsis Screen: Does the patient meet any 2 criteria? No. Patient's initial sepsis screen is negative. Does the patient have a suspected source of infection? No. Patient's initial sepsis screen is negative. Risk Assessment: Do you want to hurt yourself or someone else? Patient reports no desire to harm self or others. Onset of symptoms was March 24, 2023. 05:39 Method Of Arrival: EMS: [facility] 8 05:39 Acuity: DAVID 3 km8 Triage Assessment: 05:40 General: Appears in no apparent distress. uncomfortable, Behavior is cooperative, km8 appropriate for age. Pain: Complains of pain in left upper quadrant Pain currently is 10 out of 10 on a pain scale. EENT: No signs and/or symptoms were reported regarding the EENT system. Neuro: Level of Consciousness is awake, alert, obeys commands, Oriented to person, place, time, situation. Cardiovascular: Denies chest pain, shortness of breath, Capillary refill < 3 seconds Patient's skin is warm and dry. Respiratory: Airway is patent Respiratory effort is even, unlabored, Respiratory pattern is regular, symmetrical. GI: Reports upper abdominal pain. : Reports vaginal bleeding that is bright red. Derm: No signs and/or symptoms reported regarding the dermatologic system. Skin is intact, is healthy with good turgor, Skin is dry, Skin is pink, warm \T\ dry. normal, Skin temperature is warm. Musculoskeletal: No signs and/or symptoms reported regarding the musculoskeletal system. Circulation, motion, and sensation intact. Range of motion: intact in all extremities. Historical: - Allergies: 05:40 No Known Allergies; km8 - PMHx: 05:40 depressive disorder; ovarian cysts (depressive disorder); km8 - PSHx: 05:40 section; left elbow (an); km8 - Immunization history:: Client reports receiving the 2nd dose of the Covid vaccine, Flu vaccine is not up to date. - Social history:: Smoking status: Patient denies any tobacco usage or history of. 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 Screenin:43 [facility] ED Fall Risk Assessment (Adult) History of falling in the last 3 months, km8 including since admission No falls in past 3 months (0 pts) Confusion or Disorientation No (0 pts) Intoxicated or Sedated No (0 pts) Impaired Gait No (0 pts) Mobility Assist Device Used No (0 pt) Altered Elimination No (0 pt) Score/Fall Risk Level 0 - 2 = Low Risk Oriented to surroundings, Maintained a safe environment, Educated pt \T\ family on fall prevention, incl call for assistance when getting out of bed, Assessed \T\ reinforced patient's understanding of fall precautions. Abuse screen: Denies threats or abuse. Denies injuries from another. Nutritional screening: No deficits noted. Tuberculosis screening: No symptoms or risk factors identified. Assessment: 05:43 General: see triage assessment/notes. km8 Vital Signs: 05:39 BP 133 / 80; Pulse 76; Resp 16; Temp 98.6(IR); Pulse Ox 100% on R/A; Weight 63.5 kg km8 (R); Height 5 ft. 2 in. (R); Pain 10/10; 06:00 BP 136 / 83; Pulse 82; Resp 16; Pulse Ox 100% on R/A; km8 05:39 Body Mass Index 25.61 (63.50 kg, 157.48 cm) km8 05:39 Pain Scale: Adult km8 Hustle Coma Score: 05:43 Eye Response: spontaneous(4). Motor Response: obeys commands(6). Verbal Response: km8 oriented(5). Total: 15. ED Course: 05:38 Patient arrived in ED. km8 05:40 Triage completed. km8 05:40 Arm band placed on right wrist. km8 05:43 Patient has correct armband on for positive identification. Bed in low position. Call km8 light in reach. Side rails up X 1. Pulse ox on. NIBP on. 05:43 No provider procedures requiring assistance completed. Patient maintains SpO2 km8 saturation greater than 95% on room air. 05:51 Elvin Eugene, RN is Primary Nurse. rv 05:51 Inserted saline lock: 20 gauge in right antecubital area, using aseptic technique. rv Blood collected. 06:17 Test, Urine Sent. km8 06:17 Urinalysis w/ reflexes Sent. km8 07:00 Petey Caldera MD is Attending Physician. sp3 07:17 Ludwig Sheppard MD is Referral Physician. sp3 07:22 IV discontinued, intact, bleeding controlled, No redness/swelling at site. ld1 Administered Medications: 05:59 Drug: Famotidine IVP 20 mg IVP once; dilute with 10 mL 0.9% NaCl; give over 2 minutes rv Route: IVP; Site: right antecubital; 06:49 Follow up: Response: No adverse reaction km8 05:59 Drug: NS 0.9% IV 1000 ml IV at 1 bolus Per protocol; 1000 mL bolus Route: IV; Rate: 1 rv bolus; Site: right antecubital; 06:49 Drug: fentaNYL (PF) IVP 25 mcg IVP once Route: IVP; Site: right antecubital; km8 Medication: 05:43 VIS not applicable for this client. km8 Outcome: 07:17 Discharge ordered by . sp3 07:22 Discharged to home ambulatory, ld1 07:22 Condition: stable 07:22 Discharge instructions given to patient, Instructed on discharge instructions, follow up and referral plans. Demonstrated understanding of instructions, follow-up care, 07:22 Patient left the ED. ld1 Signatures: Elvin Eugene, RN RN rv Aviva Lyle RN RN ld1 Petey Caldera MD MD sp3 Nella Hickey RN RN km8
[2023-03-25 07:35] VITALS: BP 136/83; TEMP 98.6; O2SAT 100
== END ==
LOC: ER 05:37
DX: R10.9 Unspecified abdominal pain (principal)
CPT/HCPCS: 85025; 81001; 36415; 81025; 83690; 80053; J3010; J7030

== ENCOUNTER 2023-05-25 20:32 | Emergency (ER) | payer OTHER ==
--- OUTSIDE RECORDS SUMMARY | 2023-05-25 20:34 | XMS REPORT | Continuity of Care Document ---
Author Name Unknown Address [address] [facility] [address] [place] [address] [facility] Address [address] [facility] [place] [address] Care Team Providers Care Tennis Player Name Role Phone Mercedes Del Castillo Attending [...] disorder, single episode, unspecifie d Diagnosis Active [facility] Anxiety disorder, unspecifie d Anxiety disorder, unspecifie d Diagnosis Active [facility] Sinus problem Sinus problem Problem Active [facility] Sore throat Sore throat Diagnosis Active [facility] Allergies, Adverse Reactions, Alerts Allergy Name Allergy Type Status Severity Reaction(s) Onset Date Inactive Date Treating Clinician Comments Source No Known Allergie s DA Active U 07-12 00:00: 00 [facility] Reaction Active Info Not Available [facility] Medications Ordered Medication Name Filled Medication Name Start Date Stop Date Current Medication? Ordering Clinician Indication Dosage Frequency Signature (SIG) Comments Components Source Lysine Lysine Yes Maite Nhi as directed [facility] Encounters Start Date/Time End Date/Time Encounter Type Admission Type Attending Clinicians Care Facility Care Department Encounter ID Source 2022-07-12 23:04:41 Emergency [facility] [id number] [facility] Fire Departm ent 2022-07-12 19:39:00 2022-07-13 03:00:00 Emergency EM Mercedes Del Castillo [facility] EDAddie ERON [id number] 88 [facility] are [facility] 2022-07-12 18:34:32 2022-07-12 18:34:32 Emergency [id number] MAIRA MAIRA [id number] MAIRA 2018-10-09 15:20:00 2018-10-09 15:20:00 Outpatient [facility] Medicine Renat [facility] [id number] [facility]
[2023-05-25] MEDS ORDERED: LIDOCAINE 1% 20 ML MDV ONE (22:29)
[2023-05-25] MEDS ORDERED: CLINDAMYCIN 600MG/D5W 50 ML IV ONE (22:29)
[2023-05-25 23:13] LABS: Specific Gravity 1.024 (1.005-1.030)
[2023-05-25 23:14] LABS: Absolute Lymphocytes (CBC) 1.2 K/uL (0.7-4.9); Absolute Monocytes 0.5 K/uL (0.1-1.3); Absolute Neutrophil 4.1 K/uL (1.8-8.0); Basophils % 0.5 % (0-1.3); Eosinophils % 0.6 % (0-4.4); Hematocrit 28.9 % (36.0-45.0); Hemoglobin 9.3 g/dL (12.0-15.0); Lymphocytes % 20.2 % (15.3-44.8); MCV 78.1 fL (80-100); MPV 6.6 fL (7.6-11.3); Monocytes % 7.9 % (3.3-12.3); Neutrophils % 70.8 % (41.7-73.7); Platelets 215 thou/uL (152-406); Red Cell Distribution Width 16.2 % (12.1-15.2)
[2023-05-25 23:14] LABS: Specific Gravity 1.024 (1.005-1.030); Urine Bacteria 20-50 /HPF (<20); Urine Bilirubin NEGATIVE (Negative); Urine Blood 1+ (Negative); Urine Clarity Extremely Turbid (Clear); Urine Color Light-Orange (Yellow); Urine Culture Reflex Order REFLEXED; Urine Glucose NEGATIVE (Negative); Urine Ketones NEGATIVE (Negative); Urine Micro Reflex YN NO BILL MICROSCOPIC; Urine Mucus 4+ /HPF (None Seen); Urine Nitrite 2+ (Negative); Urine Protein 1+ (Negative); Urine Urobilinogen Normal (Normal); Urine WBC >50 /HPF (<5); Urine WBC Clump Moderate /HPF (None Seen)
[2023-05-25 23:26] LABS: Anion Gap 7.5 mEq/L (5.0-15.0); Potassium 3.5 mEq/L (3.5-5.1)
--- NOTE | 2023-05-26 00:02 | EDPHYS ---
Physician Documentation [facility] Name: Jaclyn Kemp Age: 23 yrs Sex: Female : 2000 Arrival Date: 05/25/2023 Time: 20:32 Bed 5 Private MD: ED Physician Petey Caldera HPI: 05/24 22:30 This 23 yrs old Female presents to ER via Ambulatory with complaints of Abscess. cp 22:30 The patient presents with an abscess of the left cheek. Description: swollen. Onset: cp The symptoms/episode began/occurred 2 day(s) ago. Associated signs and symptoms: Pertinent negatives: discharge, drainage, fever. Severity of symptoms: in the emergency department the symptoms are actually worse, moderately. Historical: - Allergies: 20:41 No Known Allergies; ha1 - PMHx: 20:41 depressive disorder; Ovarian cysts (depressive disorder); ha1 - PSHx: 20:41 section; left elbow; ha1 - Immunization history:: Adult Immunizations up to date. - Infectious Disease History:: Denies. - Social history:: Smoking status: Patient denies any tobacco usage or history of. ROS: 22:35 Skin: Positive for swelling, of the left cheek, cp 22:35 Constitutional: Negative for body aches, chills, fever, poor PO intake, cp 22:35 Respiratory: Negative for cough, shortness of breath, wheezing, 22:35 Neuro: Negative for altered mental status, headache, weakness, 22:35 All other systems are negative, Exam: 22:40 Constitutional: The patient appears in no acute distress, alert, awake, non-toxic, well cp developed, well nourished, uncomfortable, 22:40 Head/face: Noted is swelling, that is moderate, of the left cheek, tenderness, 22:40 Eyes: Periorbital structures: appear normal, Conjunctiva: normal, Sclera: no appreciated abnormality, Lids and lashes: appear normal, bilaterally, 22:40 Neck: ROM/movement: is normal, is supple, without pain, no range of motions limitations, 22:40 Chest/axilla: Inspection: normal, 22:40 Cardiovascular: Rate: normal, Rhythm: regular, 22:40 Respiratory: the patient does not display signs of respiratory distress, Respirations: normal, no use of accessory muscles, no retractions, labored breathing, is not present, Breath sounds: are clear throughout, no decreased breath sounds, no stridor, no wheezing, 22:40 Abdomen/GI: Inspection: abdomen appears normal, Palpation: abdomen is soft and non-tender, in all quadrants, 22:40 Neuro: Orientation: to person, place \T\ time. Mentation: is normal, 22:40 ENT: External ear(s): are unremarkable, Nose: is normal, Mouth: Lips: moist, Oral cp mucosa: pink and intact, moist, Posterior pharynx: Airway: no evidence of obstruction, patent, Vital Signs: 20:36 BP 131 / 93; Pulse 99; Resp 17 S; Temp 98.1(T); Pulse Ox 100% on R/A; Weight 54.43 kg; ha1 Height 5 ft. 2 in. ; 23:11 BP 130 / 61; Pulse 95; Resp 18; Pulse Ox 100% ; jj7 05/25 00:25 BP 100 / 65; Pulse 75; Resp 17 S; Temp 98(O); Pulse Ox 99% on R/A; ha1 05/24 20:36 Body Mass Index 21.95 (54.43 kg, 157.48 cm) ha Procedures: 00:00 I \T\ D: Incision and drainage was performed for an abscess of the left cheek Prepped with Betadine, Anesthetized with 3 ml's 1% Lidocaine. Drained small amount purulent fluid. Dressin by 2 guaze the patient tolerated the procedure well, area pierced with 18 gauge needle. MDM: 05/24 20:41 Patient medically screened. 05/26 00:01 Data reviewed: vital signs, nurses notes, lab test result(s), and as a result, I will cp discharge patient. 00:01 Differential diagnosis: abscess, cellulitis, insect bite. I considered the following cp discharge prescriptions or medication management in the emergency department Medications were administered in the Emergency Department. See MAR. Counseling: I had a detailed discussion with the patient and/or guardian regarding the historical points, exam findings, and any diagnostic results supporting the discharge/admit diagnosis, lab results, the need for outpatient follow up, a family practitioner, to return to the emergency department if symptoms worsen or persist or if there are any questions or concerns that arise at home. Response to treatment: the patient's symptoms have mildly improved after treatment, and as a result, I will discharge patient. 05/24 22:13 Order name: CBC with Diff; Complete Time: 23:39 cp 05/25 00:00 Interpretation: Normal except: RBC 3.70; HGB 9.3; HCT 28.9; MCV 78.1; MCH 25.0; RDW cp 16.2; MPV 6.6. 05/24 22:13 Order name: BMP; Complete Time: 23:39 cp 05/24 22:13 Order name: Test, Urine; Complete Time: 23:39 cp 05/24 22:13 Order name: Urinalysis W/Microscopic; Complete Time: 23:39 cp 05/24 23:40 Interpretation: Reviewed. cp 05/24 23:19 Order name: Urine Culture EDMS 05/24 22:13 Order name: I\T\D Setup; Complete Time: 22:52 cp 05/24 22:13 Order name: IV; Complete Time: 22:51 cp Administered Medications: 05/24 22:52 Drug: Clindamycin IVPB 600 mg IVPB once over 30 mins; (mix in 50 mL) Route: IVPB; jj7 Infused Over: 30 mins; Site: right antecubital; 05/25 00:25 Follow up: Response: No adverse reaction; IV Status: Completed infusion; IV Intake: [id number] 00:11 Drug: Ketorolac IVP 15 mg IVP once Route: IVP; Site: right antecubital; ha1 00:25 Follow up: Response: No adverse reaction ha1 00:11 Drug: Trimethoprim-Sulfamethoxazole PO (160 mg-800 mg (DS) 2 tabs PO once Route: PO; ha1 00:24 Follow up: Response: No adverse reaction ha1 00:24 Drug: Lidocaine Infiltration (1 %) 5 ml 5 ml Infiltration once; to bedside {Note: ha1 administered by care provider page .} Volume: 5 ml; Route: Infiltration; 00:24 Follow up: Response: No adverse reaction ha1 Disposition Summary: 05/26/23 00:02 Discharge Ordered Notes: Location: Home cp Problem: new cp Symptoms: have improved cp Condition: Stable cp Diagnosis - Cutaneous abscess of face - left cheek cp - UTI/ Urinary tract infection, site not specified cp Followup: cp - With: Private Physician - When: 2 - 3 days - Reason: Recheck today's complaints Discharge Instructions: - Discharge Summary Sheet cp - Skin Abscess cp - Urinary Tract Infection, Adult cp Forms: - Medication Reconciliation Form cp - Thank You Letter cp - Antibiotic Education cp - Prescription Opioid Use cp - Patient Portal Instructions cp - Leadership Thank You Letter cp Prescriptions: - Clindamycin HCl 300 mg Oral Capsule - take 1 capsule ORAL route every 6 hours for 10 days; 40 capsule; Refills: 0, cp Product Selection Permitted - Ibuprofen 600 mg Oral tablet - take 1 tablet ORAL route every 8 hours As needed take with food; 30 tablet; cp Refills: 0, Product Selection Permitted - Bactrim DS 800-160 mg Oral tablet - take 1 tablet ORAL route every 12 hours for 10 days; 20 tablet; Refills: 0, cp Product Selection Permitted Signatures: Dispatcher [employer] EDMS Juancarlos Moyer PA PA cp Ayala, Heidy RN RN ha1 Cheryle Root RN RN jj7 Corrections: (The following items were deleted from the chart) 05/26 00:05/25 22:40 Constitutional: The patient appears in no acute distress, alert, awake, cp non-toxic, well developed, well nourished, uncomfortable, cp 05/26 00: 04 22:40 Head/face: Noted is swelling, that is moderate, of the left cheek, cp tenderness, cp 05/26 00: 04 22:40 Eyes: Periorbital structures: appear normal, Conjunctiva: normal, Sclera: cp no appreciated abnormality, Lids and lashes: appear normal, bilaterally, cp 05/26 00:06 04 22:40 ENT: External ear(s): are unremarkable, Nose: is normal, Mouth: Lips: cp moist, Oral mucosa: pink and intact, moist, Posterior pharynx: Airway: no evidence of obstruction, patent, cp 05/26 00:05/25 22:40 Neck: ROM/movement: is normal, is supple, without pain, no range of motions cp limitations, cp 05/26 00: 0405 22:40 Chest/axilla: Inspection: normal, cp cp 05/26 00: 04 22:40 Cardiovascular: Rate: normal, Rhythm: regular, cp cp 05/26 00:05/25 22:40 Respiratory: the patient does not display signs of respiratory distress, cp Respirations: normal, no use of accessory muscles, no retractions, labored breathing, is not present, Breath sounds: are clear throughout, no decreased breath sounds, no stridor, no wheezing, cp 05/26 00:05/25 22:40 Abdomen/GI: Inspection: abdomen appears normal, Palpation: abdomen is soft cp and non-tender, in all quadrants, cp 05/26 00:05/25 22:40 Neuro: Orientation: to person, place \T\ time. Mentation: is normal, cp cp
--- NOTE | 2023-05-26 00:02 | ER ---
Nurse's Notes [facility] Name: Jaclyn Kemp Age: 23 yrs Sex: Female : 2000 Arrival Date: 05/25/2023 Time: 20:32 Bed 5 Private MD: Diagnosis: Cutaneous abscess of face-left cheek;UTI/ Urinary tract infection, site not specified Presentation: 05/24 20:36 Chief complaint: Patient states: I have a pimple on my left cheek since two days ago. I ha1 popped the pimple yesterday and it hurts really bad, I think it might be an access. Coronavirus screen: Vaccine status: Patient reports receiving the 2nd dose of the covid vaccine. Moderna. Ebola Screen: No symptoms or risks identified at this time. Initial Sepsis Screen: Does the patient meet any 2 criteria? No. Patient's initial sepsis screen is negative. Does the patient have a suspected source of infection? No. Patient's initial sepsis screen is negative. Risk Assessment: Do you want to hurt yourself or someone else? Patient reports no desire to harm self or others. Onset of symptoms was May 25, 2023. 20:36 Method Of Arrival: Ambulatory ha1 20:36 Acuity: DAVID 5 ha1 Triage Assessment: 20:41 General: Appears comfortable, Behavior is calm, cooperative. Pain: Complains of pain in ha1 left cheek Pain does not radiate. Pain currently is 5 out of 10 on a pain scale. Quality of pain is described as throbbing, Pain began gradually. Neuro: Level of Consciousness is awake, alert, obeys commands, Oriented to person, place, time, situation. Cardiovascular: Thorax. Respiratory: Airway is patent Respiratory effort is even, unlabored, Respiratory pattern is regular, symmetrical. Derm: Skin is pink, warm \T\ dry. Reports. Historical: - Allergies: 20:41 No Known Allergies; ha1 - PMHx: 20:41 depressive disorder; Ovarian cysts (depressive disorder); ha1 - PSHx: 20:41 section; left elbow; ha1 - Immunization history:: Adult Immunizations up to date. - Infectious Disease History:: Denies. - Social history:: Smoking status: Patient denies any tobacco usage or history of. Screenin:43 Abuse screen: Denies threats or abuse. Denies injuries from another. Nutritional ha1 screening: No deficits noted. Tuberculosis screening: No symptoms or risk factors identified. 22:02 [facility] ED Fall Risk Assessment (Adult) History of falling in the last 3 months, jj7 including since admission No falls in past 3 months (0 pts) Confusion or Disorientation No (0 pts) Intoxicated or Sedated No (0 pts) Impaired Gait No (0 pts) Mobility Assist Device Used No (0 pt) Altered Elimination No (0 pt) Score/Fall Risk Level 0 - 2 = Low Risk Oriented to surroundings, Maintained a safe environment, Educated pt \T\ family on fall prevention, incl call for assistance when getting out of bed. Assessment: 22:02 General: Appears in no apparent distress. comfortable, Behavior is calm, cooperative, jj7 appropriate for age. Derm: Skin is intact, Skin is pink, Abscess located on left cheek is has no drainage, is red, is raised. 05/25 00:25 Reassessment: Patient and/or family updated on plan of care and expected duration. Pain ha1 level reassessed. Patient is alert, oriented x 3, equal unlabored respirations, skin warm/dry/pink. Patient states feeling better. Patient states symptoms have improved. Vital Signs: 05/24 20:36 BP 131 / 93; Pulse 99; Resp 17 S; Temp 98.1(T); Pulse Ox 100% on R/A; Weight 54.43 kg; ha1 Height 5 ft. 2 in. ; 23:11 BP 130 / 61; Pulse 95; Resp 18; Pulse Ox 100% ; jj7 05/25 00:25 BP 100 / 65; Pulse 75; Resp 17 S; Temp 98(O); Pulse Ox 99% on R/A; ha1 05/24 20:36 Body Mass Index 21.95 (54.43 kg, 157.48 cm) ha1 ED Course: 05/24 20:25 Arm band placed on right wrist. ha1 20:35 Patient arrived in ED. mr 20:39 Juancarlos Moyer PA is PHCP. cp 20:39 Petey Caldera MD is Attending Physician. cp 20:41 Triage completed. ha1 22:00 Cheryle Root, SUSAN is Primary Nurse. jj7 22:02 Patient has correct armband on for positive identification. Bed in low position. Call jj7 light in reach. Side rails up X 1. Adult w/ patient. Provided Education on: USE OF CALL IVERSON. Warm blanket given. 22:02 Patient did not have IV access during this emergency room visit. jj7 22:52 Urinalysis W/Microscopic Sent. jj7 22:52 Test, Urine Sent. jj7 05/25 00:26 No provider procedures requiring assistance completed. IV discontinued, intact, ha1 bleeding controlled, No redness/swelling at site. Pressure dressing applied. Administered Medications: 05/24 22:52 Drug: Clindamycin IVPB 600 mg IVPB once over 30 mins; (mix in 50 mL) Route: IVPB; jj7 Infused Over: 30 mins; Site: right antecubital; 05/25 00:25 Follow up: Response: No adverse reaction; IV Status: Completed infusion; IV Intake: [id number] 00:11 Drug: Ketorolac IVP 15 mg IVP once Route: IVP; Site: right antecubital; ha1 00:25 Follow up: Response: No adverse reaction ha1 00:11 Drug: Trimethoprim-Sulfamethoxazole PO (160 mg-800 mg (DS) 2 tabs PO once Route: PO; ha1 00:24 Follow up: Response: No adverse reaction ha1 00:24 Drug: Lidocaine Infiltration (1 %) 5 ml 5 ml Infiltration once; to bedside {Note: ha1 administered by care provider page .} Volume: 5 ml; Route: Infiltration; 00:24 Follow up: Response: No adverse reaction ha1 Medication: 05/24 22:02 VIS not applicable for this client. jj7 Intake: 05/25 00:25 IV: 50ml; Total: 50ml. ha1 Outcome: 00:02 Discharge ordered by . cp 00:26 Discharged to home ambulatory, with family, ha1 00:26 Condition: stable 00:26 Discharge instructions given to patient, family, Instructed on discharge instructions, follow up and referral plans. medication usage, Demonstrated understanding of instructions, follow-up care, medications, Prescriptions given X 3, 00:27 Patient left the ED. ha1 Addendum: 05/29/2023 07:32 Addendum: Culture Results: Positive urine culture. No further action required. Other: i w pt was admitted to hospital , on IV antibiotics . Signatures: Fanny Duarte, Reg Reg mr Harriett Aguirre RN RN iw Juancarlos Moyer PA PA cp Ayala, Heidy, RN RN ha1 Cheryle Root RN RN jj7 Corrections: (The following items were deleted from the chart) 05/25 00:25 00:24 Response: No adverse reaction ha1 ha1
[2023-05-26] MEDS ORDERED: SMZ./TMP. 800/160 MG TABLET ONE (00:15)
[2023-05-26] MEDS ORDERED: KETOROLAC 30 MG/ML INJ ONE (00:15)
[2023-05-26 03:53] VITALS: BP 100/65; TEMP 98; O2SAT 99
== END 2023-05-26 00:27 | disposition home or self-care (01) ==
LOC: ER 20:32
PROC: 0H91XZZ Drainage of Face Skin, External Approach (ICD-10-PCS; principal; 2023-05-26)
DX: L02.01 Cutaneous abscess of face (principal); N39.0 Urinary tract infection, site not specified
CPT/HCPCS: 96365; 87088; 85025; 81001; 87086; 80048; 36415; 81025; 87077; 87186; 96375; 99284; 96366; 10060; J2001

== ENCOUNTER 2023-05-28 17:33 | Inpatient (IN) | payer OTHER ==
--- OUTSIDE RECORDS SUMMARY | 2023-05-28 17:35 | XMS REPORT | Continuity of Care Document ---
Author Name Unknown Address [address] [place] [address] [facility] [address] [place] [address] Care Team Providers Care Window Maker Name Role Phone Mercedes Del Castillo Attending Clinician Ernestine e Physician, No Primary or Family Admitting Clinic merry Unavailable Payers Payer Name Policy Type Policy Number Effective Date Expirati on Date Source Problems Condition Name Condition Details Condition Category Status Onset Date Resolution Date Last Treatment Date Treating Clinician Comments Source Sore throat Sore throat Diagnosis Active [facility] Major depressive disorder, single episode, unspecifie d Major depressive disorder, single episode, unspecifie d Diagnosis Active [facility] Anxiety disorder, unspecifie d Anxiety disorder, unspecifie d Diagnosis Active [facility] Sinus problem Sinus problem Problem Active [facility] Allergies, Adverse Reactions, Alerts Allergy Name Allergy Type Status Severity Reaction(s) Onset Date Inactive Date Treating Clinician Comments Source No Known Allergie s DA Active U 07-12 00:00: 00 [facility] are [facility] Adverse Reaction Active Info Not Available [facility] Medications Ordered Medication Name Filled Medication Name Start Date Stop Date Current Medication? Ordering Clinician Indication Dosage Frequency Signature (SIG) Comments Components Source Lysine Lysine Yes Maite Nhi as directed [facility] Encounters Start Date/Time End Date/Time Encounter Type Admission Type Attending Clinicians Care Facility Care Department Encounter ID Source 2022-07-12 23:04:41 Emergency HFD HFD [id number] [facility] 2022-07-12 19:39:00 2022-07-13 03:00:00 [facility] [id number] [facility] are [facility] 2022-07-12 18:34:32 2022-07-12 18:34:32 Emergency [id number] MAIRA MAIRA [id number] MAIRA 2018-10-09 15:20:00 2018-10-09 15:20:00 Outpatient Rena t [facility] Medicine Renat [facility] [id number] [facility]
[2023-05-28 19:30] LABS: Absolute Eosinophils 0.1 K/uL (0-0.5); Absolute Lymphocytes (CBC) 1.1 K/uL (0.7-4.9); Absolute Monocytes 0.3 K/uL (0.1-1.3); Absolute Neutrophil 3.5 K/uL (1.8-8.0); Basophils % 0.2 % (0-1.3); Hemoglobin 9.4 g/dL (12.0-15.0); Lymphocytes % 22.6 % (15.3-44.8); MCH 25.2 pg (27.0-35.0); MCHC 32.3 g/dL (32.0-36.0); MPV 6.8 fL (7.6-11.3); Monocytes % 6.9 % (3.3-12.3); Neutrophils % 69.3 % (41.7-73.7); Nucleated Red Blood Cells % 0.1 % (0-0); Platelets 235 thou/uL (152-406); RBC Red Blood Cell Count 3.72 M/uL (3.86-4.86)
[2023-05-28 19:39] LABS: Specific Gravity 1.029 (1.005-1.030)
[2023-05-28 19:45] LABS: Specific Gravity 1.029 (1.005-1.030); Sqamous Epithelial >50 /HPF (None Seen); Urine Bacteria <20 /HPF (<20); Urine Bilirubin NEGATIVE (Negative); Urine Blood 1+ (Negative); Urine Clarity Extremely Turbid (Clear); Urine Color Yellow (Yellow); Urine Culture Reflex Order NOT NEEDED; Urine Glucose NEGATIVE (Negative); Urine Ketones NEGATIVE (Negative); Urine Micro Reflex YN NO BILL MICROSCOPIC; Urine Mucus Slight /HPF (None Seen); Urine Nitrite NEGATIVE (Negative); Urine Protein TRACE (Negative); Urine RBC >50 /HPF (None Seen); Urine Urobilinogen 1+ (Normal); Urine WBC 20-50 /HPF (<5); Urine Yeast (Budding) Few /HPF (None Seen); Urine pH 6.5 (5.0-7.0)
[2023-05-28 19:52] LABS: PT Prothrombin Time 13.3 SECONDS (9.5-12.5); PTT, Activated Partial Thromb 30.5 SECONDS (24.3-36.9); Protime INR 1.22
[2023-05-28 19:56] LABS: Albumin 3.3 g/dL (3.4-5.0); Albumin/Globulin Ratio 0.6 (1.1-1.8); Anion Gap 6.2 mEq/L (5.0-15.0); Bilirubin Total 0.3 mg/dL (0.2-1.0); Globulin 5.1 g/dL (2.3-3.5); Potassium 4.2 mEq/L (3.5-5.1); Protein, Total 8.4 g/dL (6.4-8.2)
--- NOTE | 2023-05-28 20:09 | RAD REPORT ---
EXAM DESCRIPTION: CT - CTFBWCON CLINICAL HISTORY: SWELLING COMPARISON: No comparisons TECHNIQUE: Axial 2 mm thick images of the face were obtained with sagittal and coronal reconstructio n images. All CT scans are performed using dose optimization technique as appropriate and may include automated exposure control or mA/KV adjustment according to patient size. FINDINGS: No acute facial bone fracture is seen.The mandible is intact. The globes and orbital contents are grossly unremarkable.The paranasal sinuses and mastoids are clear . Left cheek skin thickening and subcutaneous edema. Within the subcutaneous tissues, a fluid collectio n which has portions that peripherally enhance. This is superficial to the deeper structures within t he face including the steel pickler space. This measures approximately 3 x 3.6 x 1.4 cm . IMPRESSION: Left facial skin thickening consistent with a cellulitis. Subcutaneous fluid in the left cheek which is partially enhancing likely reflecting phlegmon/early abscess formation. This is withi n the subcutaneous tissues and does not extend into the deeper structures within the face/neck.
[2023-05-28] MEDS ORDERED: VANCOMYCIN 1 GM/VIAL ONE (20:12)
[2023-05-28] MEDS ORDERED: NA CHLORIDE 0.9% 250 ML ONE (20:12)
--- NOTE | 2023-05-28 20:47 | EDPHYS ---
Physician Documentation [facility] Name: Jaclyn Kemp Age: 23 yrs Sex: Female : 2000 Arrival Date: 05/28/2023 Time: 17:33 Bed 14 Private MD: ED Physician Juancarlos Gusman HPI: 05/27 18:00 This 23 yrs old Female presents to ER via Ambulatory with complaints of Facial Swelling.cp 18:00 The patient presents with an abscess of the left cheek of face. cp 18:00 Description: swollen. Onset: The symptoms/episode began/occurred last week, seen in this ED 3 days ago and prescribed oral antibiotics. Associated signs and symptoms: Pertinent negatives: discharge, drainage, fever. Historical: - Allergies: 17:52 No Known Allergies; nj1 - PMHx: 17:52 depressive disorder; Ovarian cysts (depressive disorder); nj1 - PSHx: 17:52 section; left elbow; nj1 - Immunization history:: Client reports receiving the 2nd dose of the Covid vaccine. - Infectious Disease History:: Denies. - Social history:: Smoking status: Patient denies any tobacco usage or history of. ROS: 18:05 Skin: Positive for of the left cheek of face, abscess, cp 18:05 Constitutional: Negative for chills, fever, poor PO intake, cp 18:05 All other systems are negative, Exam: 18:10 Constitutional: The patient appears in no acute distress, alert, awake, non-toxic, well cp developed, well nourished, 18:10 Head/face: Noted is swelling, that is moderate, of the left cheek, of the extends to cp lower eyelid, tenderness, that is moderate, 18:10 Eyes: Pupils: equal, round, and reactive to light and accomodation, Extraocular movements: intact throughout, Conjunctiva: normal, 18:10 ENT: External ear(s): are unremarkable, Nose: is normal, Mouth: Lips: moist, Oral mucosa: pink and intact, moist, Posterior pharynx: Airway: no evidence of obstruction, patent, 18:10 Neck: ROM/movement: is normal, is supple, without pain, no range of motions limitations, 18:10 Chest/axilla: Inspection: normal, 18:10 Cardiovascular: Rate: tachycardic, Rhythm: regular, 18:10 Respiratory: the patient does not display signs of respiratory distress, Respirations: normal, no use of accessory muscles, no retractions, labored breathing, is not present, Breath sounds: are clear throughout, no decreased breath sounds, no stridor, no wheezing, 18:10 Abdomen/GI: Inspection: abdomen appears normal, Palpation: abdomen is soft and non-tender, in all quadrants, 18:10 Back: pain, is absent, ROM is normal, 18:10 Neuro: Orientation: to person, place \T\ time. Mentation: is normal, Motor: moves all fours, strength is normal, Vital Signs: 17:49 BP 121 / 66; Pulse 102; Resp 16; Temp 97.6(O); Pulse Ox 100% on R/A; Weight 54.43 kg; nj1 Height 5 ft. 2 in. ; 20:00 BP 124 / 67; Pulse 94; Resp 18; Pulse Ox 100% ; cp4 22:00 BP 120 / 55; Pulse 111; Resp 16; Pulse Ox 99% on R/A; km8 17:49 Body Mass Index 21.95 (54.43 kg, 157.48 cm) nj1 MDM: 17:59 Patient medically screened. [facility] 20:45 Data reviewed: vital signs, nurses notes, lab test result(s), radiologic studies, CT cp scan. 20:45 Management of patient was discussed with the following: Steel Floor Pan Placing Supervisor: DR Nikolay escobar cp consult and patient to be admitted to service of hospitalist, DR Sandoval. I considered the following discharge prescriptions or medication management in the emergency department Medications were administered in the Emergency Department. See APR. 05/27 17:56 Order name: Urinalysis W/Microscopic; Complete Time: 20:03 05/27 20:04 Interpretation: Normal except: [facility] Extremely Turbid; UBLD 1+; UPROT TRACE; UUROB 1+; cp UESTR 500; UWBC 20-50; URBC >50; SQEPI >50; BYST Few. 05/27 17:56 Order name: Test, Urine; Complete Time: 20:03 05/27 17:56 Order name: Blood Culture Adult (2) 05/27 17:56 Order name: CBC with Diff; Complete Time: 20:03 05/27 20:04 Interpretation: Normal except: RBC 3.72; HGB 9.4; HCT 29.0; MCV 78.0; MCH 25.2; RDW cp 16.0; MPV 6.8. 05/27 17:56 Order name: CMP; Complete Time: 20:03 cp / 20:04 Interpretation: Normal except: NA 134; GLUC 121; TP 8.4; ALB 3.3; GLOB 5.1; A/G 0.6. cp 05/27 17:56 Order name: Lactate w/ 2H reflex if indic.; Complete Time: 20:03 cp 05/27 17:56 Order name: Protime (+inr); Complete Time: 20:03 cp 05/27 17:56 Order name: Ptt, Activated; Complete Time: 20:03 cp 05/27 21:07 Order name: Urinalysis w/ reflexes EDMS 05/27 21:07 Order name: CBC with Automated Diff EDMS 05/27 21:07 Order name: CBC with Automated Diff EDMS 05/27 21:07 Order name: Comprehensive Metabolic Panel EDMS 05/27 21:07 Order name: Comprehensive Metabolic Panel EDMS 05/27 21:08 Order name: Vancomycin Level Trough EDMS 05/27 17:56 Order name: CT Facial Bones W/ Con \T\ Mpr; Complete Time: 20:17 cp 05/27 20:18 Interpretation: Report reviewed. cp 05/27 21:07 Order name: CONS Physician Consult EDMS 05/27 17:56 Order name: Accucheck; Complete Time: 19:07 cp 05/27 17:56 Order name: Cardiac monitoring; Complete Time: 19:07 cp 05/27 17:56 Order name: EKG - Nurse/Tech; Complete Time: 19:07 cp 05/27 17:56 Order name: IV Saline Lock - Large Bore; Complete Time: 19:08 cp 05/27 17:56 Order name: Labs collected and sent; Complete Time: 19:08 cp 05/27 17:56 Order name: O2 Per Protocol; Complete Time: 19:08 cp 05/27 17:56 Order name: O2 Sat Monitoring; Complete Time: 19:08 cp 05/27 17:56 Order name: Vital Signs; Complete Time: 19:08 cp Administered Medications: 20:16 Drug: vancoMYCIN IVPB 1 grams IVPB once over 2 hrs Route: IVPB; Infused Over: 2 hrs; cp4 Site: right antecubital; 21:53 Follow up: Response: No adverse reaction; IV Status: Completed infusion cp4 21:53 Drug: Cefepime IVPB 1 grams IVPB at 200 ml/hr once over 30 mins; (mix in NS 100 mL) cp4 Route: IVPB; Rate: 200 ml/hr; Infused Over: 30 mins; Site: right antecubital; 22:09 Follow up: IV Status: Infusion continued upon admission km8 Disposition Summary: 05/28/23 20:47 Hospitalization Ordered Notes: Hospitalization Status: Inpatient Admission cp Provider: Tony Sandoval cp Location: Telemetry/MedSurg (Inpatient) cp Condition: Stable cp Problem: new cp Symptoms: have improved cp Bed/Room Type: Standard Room Assignment: [facility](05/28/23 21:38) kl Diagnosis - Cutaneous abscess of face cp - Cellulitis of face cp Forms: - Medication Reconciliation Form cp - SBAR form cp - Leadership Thank You Letter cp Signatures: Dispatcher [employer] EDJayda Masterson RN RN kl Anderson, Corey, MD MD cha Page, Corey, PA PA cp Taylor Mccarty RN RN nj1 Mariel Araujo cp4 Nella Hickey RN km8 Corrections: (The following items were deleted from the chart) 17:56 17:56 Urinalysis W/Microscopic+U.LAB.BRZ ordered. EDMS EDMS 17:56 17:56 Test, Urine+UC.LAB.BRZ ordered. EDMS EDMS 17:56 17:56 BLOOD CULTURE*+BA.LAB.BRZ ordered. EDMS EDMS 17:56 17:56 CBC+H.LAB.BRZ ordered. EDMS EDMS 17:56 17:56 COMPREHENSIVE METABOLIC PANEL+C.LAB.BRZ ordered. EDMS EDMS 17:56 17:56 LACTATE+C.LAB.BRZ ordered. EDMS EDMS 17:56 17:56 PROTIME (+INR)+COAG.LAB.BRZ ordered. EDMS EDMS 17:56 17:56 PTT, ACTIVATED+COAG.LAB.BRZ ordered. EDMS EDMS 21:38 20:47 cp kl
--- NOTE | 2023-05-28 20:47 | ER ---
Nurse's Notes [facility] Name: Jaclyn Kemp Age: 23 yrs Sex: Female : 2000 Arrival Date: 05/28/2023 Time: 17:33 Bed 14 Private MD: Diagnosis: Cutaneous abscess of face;Cellulitis of face Presentation: 05/27 17:49 Chief complaint: Patient states: Facial swelling, seen here 3 days ago, given rx abx, nj1 states not getting better. Coronavirus screen: Vaccine status: Patient reports receiving the 2nd dose of the covid vaccine. Ebola Screen: Patient denies travel to an Ebola-affected area in the 21 days before illness onset. Initial Sepsis Screen: Does the patient meet any 2 criteria? HR > 90 bpm. No. Patient's initial sepsis screen is negative. Does the patient have a suspected source of infection? No. Patient's initial sepsis screen is negative. Risk Assessment: Do you want to hurt yourself or someone else? Patient reports no desire to harm self or others. Onset of symptoms was May 22, 2023. 17:49 Method Of Arrival: Ambulatory [facility] 17:49 Acuity: DAVID 3 [facility] Triage Assessment: 17:53 General: Appears in no apparent distress. uncomfortable, Behavior is calm, cooperative, nj1 appropriate for age. Pain: Complains of pain in face Pain currently is 5 out of 10 on a pain scale. Derm: Derm: Swelling to left side of face. Historical: - Allergies: 17:52 No Known Allergies; nj1 - PMHx: 17:52 depressive disorder; Ovarian cysts (depressive disorder); nj1 - PSHx: 17:52 section; left elbow; nj1 - Immunization history:: Client reports receiving the 2nd dose of the Covid vaccine. - Infectious Disease History:: Denies. - Social history:: Smoking status: Patient denies any tobacco usage or history of. Screenin:11 [facility] ED Fall Risk Assessment (Adult) History of falling in the last 3 months, cp4 including since admission No falls in past 3 months (0 pts) Confusion or Disorientation No (0 pts) Intoxicated or Sedated No (0 pts) Impaired Gait No (0 pts) Mobility Assist Device Used No (0 pt) Altered Elimination No (0 pt) Score/Fall Risk Level 0 - 2 = Low Risk Oriented to surroundings, Maintained a safe environment, Assessed \T\ reinforced patient's understanding of fall precautions, Hourly rounding (assess needs \T\ fall precautionary measures) done. Abuse screen: Denies threats or abuse. Nutritional screening: No deficits noted. Tuberculosis screening: No symptoms or risk factors identified. Assessment: 19:11 General: Appears uncomfortable, Behavior is calm, cooperative, appropriate for age. cp4 Pain:. Derm: Abscess. Vital Signs: 17:49 BP 121 / 66; Pulse 102; Resp 16; Temp 97.6(O); Pulse Ox 100% on R/A; Weight 54.43 kg; nj1 Height 5 ft. 2 in. ; 20:00 BP 124 / 67; Pulse 94; Resp 18; Pulse Ox 100% ; cp4 22:00 BP 120 / 55; Pulse 111; Resp 16; Pulse Ox 99% on R/A; km8 17:49 Body Mass Index 21.95 (54.43 kg, 157.48 cm) nj1 ED Course: 17:34 Patient arrived in ED. rg4 17:43 Juancarlos Moyer PA is PHCP. cp 17:43 Juancarlos Gusman MD is Attending Physician. cp 17:52 Triage completed. nj1 17:53 Arm band placed on right wrist. nj1 18:25 Mariel Araujo is Primary Nurse. cp4 19:08 Blood Culture Adult (2) Sent. cp4 19:08 CBC with Diff Sent. cp4 19:08 CMP Sent. cp4 19:08 Lactate w/ 2H reflex if indic. Sent. cp4 19:08 Protime (+inr) Sent. cp4 19:08 Ptt, Activated Sent. cp4 19:09 Test, Urine Sent. cp4 19:09 Urinalysis W/Microscopic Sent. cp4 19:11 Bed in low position. Call light in reach. Side rails up X 1. cp4 19:58 CT Facial Bones W/ Con \T\ Mpr In Process Unspecified. EDMS 20:46 Tony Sandoval MD is Hospitalizing Provider. cp 22:08 Provided Education on: admission process. km8 22:08 No provider procedures requiring assistance completed. Patient admitted, IV remains in km8 place. Administered Medications: 20:16 Drug: vancoMYCIN IVPB 1 grams IVPB once over 2 hrs Route: IVPB; Infused Over: 2 hrs; cp4 Site: right antecubital; 21:53 Follow up: Response: No adverse reaction; IV Status: Completed infusion [facility] 21:53 Drug: Cefepime IVPB 1 grams IVPB at 200 ml/hr once over 30 mins; (mix in NS 100 mL) 4 Route: IVPB; Rate: 200 ml/hr; Infused Over: 30 mins; Site: right antecubital; 22:09 Follow up: IV Status: Infusion continued upon admission 8 Medication: 19:11 VIS not applicable for this client. 4 Outcome: 20:47 Decision to Hospitalize by Provider. cp 22:08 Admitted to Med/surg accompanied by tech, family with patient, via wheelchair, room km8 [id number], with chart, Report called to 4th floor via fax 22:08 Condition: stable 22:08 Instructed on the need for admit, Demonstrated understanding of instructions, 22:10 Patient left the ED. 8 Signatures: Dispatcher [employer] EDMS Juancarlos Moyer PA PA cp Garcia, Rubi 4 Taylor Mccarty, RN RN nj1 Mariel Araujo cp4 Nella Hickey RN RN 8
--- NOTE | 2023-05-28 20:48 | P.HP ---
Certification for Inpatient Patient admitted to: Inpatient With expected LOS: >2 Midnights Practitioner: I am a practitioner with admitting privileges, knowledge of patient current condition, hospital course, and medical plan of care. Services: Services provided to patient in accordance with Admission requirements found in Title 42 Section 412.3 of the Code of Federal Regulations Patient History Date of Service: 05/28/23 Reason for admission: Swelling of left face History of Present Illness: 23 yo female with past medical history of depressive disorder; Ovarian cysts came with pain and swelling of the left side of the face .Started as a pimple . And was progressively getting worse . Has been on antibiotics as outpatients . but the swelling has been worse over the last 2 days . Denies any fever or chills. Patient was assessed in the ER and was admitted for further management of facial cellulitis. ENT was consulted as well Allergies No Known Allergies Allergy (Unverified 05/28/23 21:34) - Past Medical/Surgical History Diabetic: No -: Repair of lt. elbow due to fracture at age 12 - Social History Alcohol use: No CD- Drugs: No Caffeine use: Yes Review of Systems 10-point ROS is otherwise unremarkable Physical Examination - Vital Signs Temperature: 98.4 F Blood Pressure: 126/78 Pulse: 78 Respirations: 18 Pulse Ox (%): 98 - Physical Exam General: Alert, In no apparent distress, Oriented x3 HEENT: Atraumatic, Normocephalic Neck: Supple, 2+ carotid pulse no bruit, JVD not distended Respiratory: Clear to auscultation bilaterally, Normal air movement Cardiovascular: No edema, Regular rate/rhythm, Normal S1 S2 Capillary refill: <2 Seconds Gastrointestinal: Soft and benign, Non-distended, W/out hepatosplenomegaly Musculoskeletal: No clubbing, No swelling Integumentary: Tenderness/swelling, Erythema, Warmth, Other (Face swelling +, Erythema +, Induration ) Neurological: Normal speech, Normal strength at 5/5 x4 extr, Normal reflexes 2+, Normal affect Lymphatics: No axilla or inguinal lymphadenopathy - Studies Laboratory Data (last 24 hrs) 05/28/23 05/28/23 05/28/23 19:02 19:02 19:02 WBC 5.00 Hgb 9.4 L Hct 29.0 L Plt Count 235 PT 13.3 H INR 1.22 APTT 30.5 Sodium 134 L Potassium 4.2 BUN 16 Creatinine 0.72 Glucose 121 H Total Bilirubin 0.3 AST 20 ALT 29 Alkaline Phosphatase 78 Imagings Data: [id number] FINDINGS: No acute facial bone fracture is seen.The mandible is intact. The globes and orbital contents are grossly unremarkable.The paranasal sinuses and mastoids are clear. Left cheek skin thickening and subcutaneous edema. Within the subcutaneous tissues, a fluid collection which has portions that peripherally enhance. This is superficial to the deeper structures within the face including the canteen operator space. This measures approximately 3 x 3.6 x 1.4 cm . IMPRESSION: Left facial skin thickening consistent with a cellulitis. Subcutaneous fluid in the left cheek which is partially enhancing likely reflecting phlegmon/early abscess formation. This is within the subcutaneous tissues and does not extend into the deeper structures within the face/neck. Assessment and Plan - Problems (Diagnosis) (1) Facial cellulitis Current Visit: Yes Status: Acute Plan: Facial Cellulitis Pain Control Started on IV antibiotics Monitor closely Failed outpatient management CT findings noted Consistent with Left Facial Cellulitis ENT consult NPO post midnight Possibly may need I & D (2) UTI (urinary tract infection) Current Visit: Yes Status: Acute Plan: Continue antibiotics Cultures Will change antibiotics as per sensitivity (3) Anemia Current Visit: Yes Status: Chronic Plan: Monitor CBC in AM Transfuse. Discharge Plan: Home Plan to discharge in: Greater than 2 days - Advance Directives Does patient have a Living Will: No Does patient have a Durable POA for Healthcare: No - Code Status/Comfort Care Code Status: Full Code Time Spent Managing Pts Care (In Minutes): 58
[2023-05-28] MEDS ORDERED: ONDANSETRON 4 MG/2 ML VIAL IV PRN (21:02)
[2023-05-28] MEDS ORDERED: CEFEPIME 1 GM/VIAL ONE (21:44)
[2023-05-28] MEDS ORDERED: NA CHLORIDE 0.9% 100 ML ONE (21:44)
[2023-05-28] MEDS: NA CHLORIDE 0.9% 1,000 ML IV SCH (22:29)
[2023-05-28 22:47] VITALS: BMI 25.9
[2023-05-28 22:54] LABS: Urine Bacteria <20 /HPF (<20); Urine Bilirubin NEGATIVE (Negative); Urine Blood Negative (Negative); Urine Clarity Clear (Clear); Urine Color Light-Yellow (Yellow); Urine Culture Reflex Order NOT NEEDED; Urine Glucose NEGATIVE (Negative); Urine Ketones NEGATIVE (Negative); Urine Microscopic Reflex YN ORDER UMIC; Urine Nitrite NEGATIVE (Negative); Urine Protein NEGATIVE (Negative); Urine Urobilinogen Normal (Normal); Urine pH 6.5 (5.0-7.0)
[2023-05-28 22:56] LABS: Specific Gravity > 1.030 (1.005-1.030)
[2023-05-29 06:45] LABS: Absolute Eosinophils 0.1 K/uL (0-0.5); Absolute Lymphocytes (CBC) 1.4 K/uL (0.7-4.9); Absolute Monocytes 0.4 K/uL (0.1-1.3); Absolute Neutrophil 1.9 K/uL (1.8-8.0); Basophils % 0.2 % (0-1.3); Eosinophils % 2.9 % (0-4.4); Hematocrit 26.4 % (36.0-45.0); Hemoglobin 8.7 g/dL (12.0-15.0); Lymphocytes % 37.1 % (15.3-44.8); MCH 25.7 pg (27.0-35.0); MCV 77.8 fL (80-100); MPV 6.6 fL (7.6-11.3); Monocytes % 10.8 % (3.3-12.3); Nucleated Red Blood Cells % 0.2 % (0-0); Platelets 218 thou/uL (152-406); Red Cell Distribution Width 16.4 % (12.1-15.2)
[2023-05-29 07:04] LABS: Albumin 2.8 g/dL (3.4-5.0); Albumin/Globulin Ratio 0.6 (1.1-1.8); Anion Gap 7.9 mEq/L (5.0-15.0); Bilirubin Total 0.2 mg/dL (0.2-1.0); Globulin 4.5 g/dL (2.3-3.5); Potassium 3.9 mEq/L (3.5-5.1); Protein, Total 7.3 g/dL (6.4-8.2)
[2023-05-29] MEDS: CEFEPIME 1 GM in NA CHLORIDE 0.9% 100 ML IV SCH (08:14)
[2023-05-29] MEDS: VANCOMYCIN 1 GM in NA CHLORIDE 0.9% 250 ML IVPB SCH ×2 (08:15→21:24)
[2023-05-29] MEDS: ENOXAPARIN 40 MG/0.4 ML SQ SCH (08:15)
[2023-05-29] MEDS: BACITRACIN OINTMENT 14 GM TUBE TOP ONE (09:27)
[2023-05-29] MEDS: BUPIVACAINE 0.25% PF 10 ML VIAL ONE (09:27)
[2023-05-29] MEDS: POVIDONE-IODINE 5% EYE DROPS ONE (09:30)
[2023-05-29] MEDS ORDERED: LIDOCAINE 2% MPF 5 ML VIAL ONE (12:20)
[2023-05-29] MEDS ORDERED: ONDANSETRON 4 MG/2 ML VIAL ONE (12:20)
[2023-05-29] MEDS ORDERED: FENTANYL CITR 100 MCG/2 ML ONE (12:21)
[2023-05-29] MEDS ORDERED: MIDAZOLAM HCL 2 MG/2 ML INJ ONE (12:21)
[2023-05-29] MEDS ORDERED: propofoL 200 MG/20 ML VIAL IV ONE (12:21)
[2023-05-29] MEDS: LIDOCAINE HCL/EPINEPHRINE 20 ML MDV ONE (12:59)
[2023-05-29] MEDS ORDERED: dexAMETHasone 4 MG/ML VIAL ONE (13:08)
[2023-05-29] MEDS: FENTANYL CITR 100 MCG/2 ML ONE (13:48)
--- NOTE | 2023-05-29 14:25 | P.PN ---
Subjective Date of Service: 05/29/23 Chief Complaint: Swelling of left face Patient has no new complaint. She has been afebrile. Physical Examination - Vital Signs Temperature: 97 F Blood Pressure: 106/51 Pulse: 72 Respirations: 18 Pulse Ox (%): 98 - Studies Laboratory Data (last 24 hrs) 05/28/23 05/28/23 05/28/23 19:02 19:02 19:02 WBC 5.00 Hgb 9.4 L Hct 29.0 L Plt Count 235 PT 13.3 H INR 1.22 APTT 30.5 Sodium 134 L Potassium 4.2 BUN 16 Creatinine 0.72 Glucose 121 H Total Bilirubin 0.3 AST 20 ALT 29 Alkaline Phosphatase 78 Assessment And Plan - Plan Physical examination General: Alert and oriented x3, NAD, HEENT: Conjunctiva not pale, anicteric sclera, left facial swelling and erythema, small area of increased redness and small skin open Neck: Supple, no elevated JVD Heart: Heart sounds 1 and 2 normal, regular rhythm, normal rate, no pedal edema Lungs: Clear to auscultation bilaterally, adequate breath sounds bilaterally, no rhonchi or crackles. Abdomen: Soft, nondistended, nontender, normal bowel sounds. Extremities: No tenderness, no deformity Skin: Normal skin turgor, no rash, no nodules or ulcers. Neuro: No focal motor deficit. Normal speech. Psychiatry: Normal mood, no agitation. Assessment and plan Facial cellulitis/abscess Pain Control Continue IV antibiotics ENT input appreciated Patient scheduled for I&D today. Consistent with Left Facial Cellulitis UTI Continue antibiotics Follow cultures Anemia Likely related to menstrual bleed Monitor CBC. Transfuse as needed for hemoglobin less than 7 DVT prophylaxis: SCD
--- NOTE | 2023-05-29 19:53 | CON ---
Date of Consultation: 05/29/2023 Referring Practitioner: George Montaño Chief Complaint: Acute left facial swelling. History Of Present Illness: The patient is a 23-year-old female with a 1-week history of progressive left cheek swelling secondary to a pimple that developed initially and after popping it, she develop ed acute left cheek swelling extending to the left lower eyelid. She has been on oral antibiotics, b ut the swelling continued to worsen over the last 2 days and she presented to the emergency room and I was consulted for further evaluation and management. Upon arrival to bedside, the patient is in no acute distress. She denies any visual disturbance, but she has significant pain and swelling over t he left cheek and an obvious pimple noted in the left cheek area. She denies fever, lethargy, or his tory of MRSA. She states this is the first incident that she has had of this condition. No other EN T complaints today. Past Medical History: Depressive disorder, ovarian cysts. Past Surgical History: Repair of left elbow, status post fracture at T12. Social History: Denies alcohol, tobacco, or illicit drugs. Psychosocial History: The patient lives at home with her boyfriend. Family History: Noncontributory. Allergies: NO KNOWN DRUG ALLERGIES. Medications: No known medications. Review of Systems: Head: Negative for headache or head trauma. Face: Positive for left cheek swelling and pain. Eyes: Negative for double vision, blurry vision. Ears: Negative for otorrhea, hearing loss, or tinnitus. Nose: Negative for rhinorrhea, nasal congestion, postnasal drip, or epistaxis. Oral Cavity: Negative for sore throat, dysphagia, swelling, exudate. Physical Examination: Vital Signs: Stable. General: The patient is awake, alert, and oriented to person, place, and time. Head: Atraumatic, normocephalic. Eyes: PERRLA/EOMI. No evidence of nystagmus. Ears: Deferred. Nose: Moist intranasal mucosa. Midline septum. No epistaxis. Throat: Moist oral mucosa. Midline uvula. No exudate. Face: Palpable fluid collection noted. Left cheek with mild tenderness to palpation with obvious pu stule noted in the left cheek area. Swelling extends to the left lower eyelid. Neck: Supple. Trachea midline. Laboratory Data: White count is low 5.0, hemoglobin 9.4, 29.0 is hematocrit, and platelets are 235. Imaging Data: CT scan of the maxillofacial bones demonstrated no acute facial bone fracture, but the re is a large area of swelling noted in the left cheek area, which may involve the assembly supervisor space i nvolving 3 x 3.6 x 1.4 cm. While it looks like cellulitis on the scan, clinically I palpated a disce rnible fluid collection. Impression: Left cheek abscess and cellulitis. Recommendations: 1.The patient has been n.p.o. since midnight. Thus, we will take her to the operating room for inci raymon and drainage of the abscess with packing. 2.Continue IV antibiotics as prescribed. The patient is currently on cefepime. JONES/ELAINA Voice ID: [id number] Report ID: [id number]
[2023-05-29 22:21] VITALS: O2SAT 98
[2023-05-30] MEDS: ACETAMINOPHEN 500 MG TAB PO PRN (03:21)
--- NOTE | 2023-05-30 04:36 | OP ---
Date of Procedure: 05/29/2023 Surgeon: KAREN SONG Preoperative Diagnosis: Acute left cheek abscess. Postoperative Diagnosis: Acute left cheek abscess. Procedure: Incision and drainage of an acute left cheek abscess under general sedation. Anesthesia: General LMA anesthesia was administered. I also infiltrated approximately 4 mL of 1% li docaine with 1:100,000 epinephrine directly over the incision site. Estimated Blood Loss: Less than 2 mL. Specimens: Mucopurulent fluid expressed from the wound and Gram stain, culture, and sensitivity were submitted to Microbiology Lab. Findings: Large left subcutaneous cheek abscess with cavity measuring approximately 2 cm in diameter . Approximately 2 mL of mucopurulent secretions expressed. Complications: None. Disposition: Stable. The patient tolerated the procedure well. Indication For Procedure: The patient is a pleasant 23-year-old female who presented to the emergenc y room with a worsening left cheek abscess that started out as mild left cheek swelling but then deve loped into a fluid collection that was extending and the swelling was extending to the left lower eye lid. Upon examination, I could palpate a definitive fluid collection in the left cheek. These were indications to bring the patient to operative suite for the above-mentioned procedure. She understoo d. All questions were answered. Risks versus benefits and complications were explained in detail an d a consent form was signed which was placed in the chart. Description Of Procedure: The patient was transferred from the preoperative holding area to the oper ative suite by Department of Anesthesia, placed on the operating table supine sedated, and then LMA w as placed. I infiltrated approximately 4 mL of 1% lidocaine with 1:100,000 epinephrine at the incisi on site, and the patient was sterilely prepped and draped. An incision was made directly over a cutaneous fistula visualized on exam and mucopurulent drainage w as expressed through the wound cavity. Wound cultures were taken and then the cavity was irrigated w ith saline. A 1/4-inch iodoform was then used to pack the abscess cavity leaving it held taped to th e cheek. A pressure dressing was placed. She tolerated the procedure well and was transferred back to the recovery room in stable condition. She will be discharged back to her room 406 and continue I V antibiotics. The packing will need to be changed in 48 hours. JONES/ELAINA Voice ID: [id number] Report ID: [id number]
--- NOTE | 2023-05-30 07:07 | P.PN ---
Date of Service: 05/30/23 Subjective: taken to OR for I&D yesterday overnight bumped her face which lead to some temporary increase in pain, otherwise doing well doesn't feel anything is getting worse denies trouble swallowing, appetite improving afebrile ROS: 10 point ROS as noted above, otherwise negative Physical Exam: GEN: Alert, oriented, NAD CV: Regular rate and rhythm, no edema Pulm: Nonlabored respirations on room air, clear bilaterally ABD: Soft, nontender, nondistended Integumentary: left sided facial swelling and erythema, with dressing in place Neuro: Normal speech, normal affect vitals reviewed Problem List: Facial Cellulitis with Abscess now s/p I&D (05/28) UTI, E. Coli Iron deficiency anemia Facial Cellulitis/Abscess now s/p I&D (05/28) Recently seen in ED 05/24 for similar episode. Started as a pimple and progressively got worse. 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 Coli urine culture from ER visit 05/25/23 grew E. Coli; resistant to bactrim Continue above antibiotics Iron deficiency anemia Reports hx of heavy menstrual bleeds and states shes been told she is iron deficiency in past but not currently taking anything. iron studies this hospitalization consistent with severe iron deficiency anemia. (iron: 34, tsat%: 9%). Discussed with patient the need to start oral iron supplementation on discharge. Advised to recheck iron levels in a few months. Daily CBC VTE: Lovenox Code: Full Dispo: Home, ~1-2 days Pending culture results / ENT recs
[2023-05-30 09:29] LABS: Absolute Lymphocytes (CBC) 1.8 K/uL (0.7-4.9); Absolute Monocytes 0.4 K/uL (0.1-1.3); Absolute Neutrophil 2.3 K/uL (1.8-8.0); Basophils % 0.3 % (0-1.3); Eosinophils % 0.9 % (0-4.4); Hematocrit 26.9 % (36.0-45.0); Lymphocytes % 38.7 % (15.3-44.8); MCHC 33.5 g/dL (32.0-36.0); MCV 77.6 fL (80-100); MPV 6.7 fL (7.6-11.3); Monocytes % 8.8 % (3.3-12.3); Neutrophils % 51.3 % (41.7-73.7); Nucleated Red Blood Cells % 0.1 % (0-0); Platelets 253 thou/uL (152-406); RBC Red Blood Cell Count 3.46 M/uL (3.86-4.86); Red Cell Distribution Width 15.7 % (12.1-15.2)
[2023-05-30 10:11] LABS: Anion Gap 6.1 mEq/L (5.0-15.0); Potassium 4.1 mEq/L (3.5-5.1)
--- NOTE | 2023-05-31 08:47 | P.DS ---
Admission Date: 05/28/23 Discharge Date: 05/31/23 Disposition: ROUTINE DISCHARGE Discharge Condition: GOOD Reason for Admission: Swelling of left face Consultations: ENT - Dr. Link Brief History of Present Illness: 23 yo F, PMH: depressive disorder, Ovarian cysts Patient presented to the ED with with left-sided facial pain and swelling. Started as a pimple And was progressively getting worse . Has been on antibiotics as outpatients . but the swelling has been worse over the last 2 days . Denies any fever or chills. Patient was assessed in the ER and was admitted for further management of facial cellulitis. ENT was consulted as well Hospital Course: Problem List: Facial Cellulitis with Abscess now s/p I&D (05/28) UTI, E. Coli Iron deficiency anemia Physician Discharge Instructions: Patient presented to the ED with worsening left sided cheek swelling/pain/erythema and was found to have acute left facial abscess seen on CT. She was recently started on oral clindamycin / bactrim ~2 days prior Patient was seen and evaluated by Dr. Link, ENT, and was taken to OR on 05/28 for I&D of abscess with packing. Patient received empiric vanc / cefepime while hospitalized and had improvement of her symptoms. Wound culture grew MRSA sensitive to bactrim/tetracycline/vanc. Patient was feeling better, afebrile without leukocytosis throughout hospitalization, facial swelling/erythema improving, and was deemed stable for discharge with close follow up with ENT today (05/30). Urine culture from ER visit 05/25/23 was noted to grow E. coli, resistant to bactrim. Patient is to complete 3 more days of PO ciprofloxacin on discharge to cover UTI, for total of 5 days of antibiotic treatment. She is to continue clindamycin as prescribed just prior to this admission (~7-8 days left). stop taking bactrim. Iron studies were checked this hospitalization and were found to be consistent with severe iron deficiency anemia. (iron: 34, tsat%: 9%). Discussed with patient the need to start oral iron supplementation on discharge. Advised to recheck iron levels in a few months. Medications: iron tablets (over the counter) ciprofloxacin x3 days Finish clindamycin prescription that was prescribed few days ago Stop bactrim that was prescribed few days ago. Patient is to finish clindamycin prescription already prescribed and will complete few days of ciprofloxacin as well. Follow up: PCP 3-5 days ENT today as discussed - walk in anytime between 8:30am-12:45pm or 2-4:45pm. Please call to schedule / confirm appointments Physical Exam: GEN: Alert, oriented, NAD CV: Regular rate and rhythm, no edema Pulm: Nonlabored respirations on room air, clear bilaterally ABD: Soft, nontender, nondistended Integumentary: minimal facial swelling and erythema; improving. Dressing in place c/d/i Neuro: Normal speech, normal affect Vital Signs/Physical Exam: Temp Pulse Resp BP Pulse Ox 97 F 73 15 105/53 L 97 05/31/23 08:00 05/31/23 08:00 05/31/23 08:00 05/31/23 08:00 05/31/23 08:00 Laboratory Data at Discharge: WBC 4.50 thou/uL (4.3-10.9) 05/30/23 08:15 Hgb 9.0 g/dL (12.0-15.0) L 05/30/23 08:15 Hct 26.9 % (36.0-45.0) L 05/30/23 08:15 Plt Count 253 thou/uL (152-406) 05/30/23 08:15 PT 13.3 SECONDS (9.5-12.5) H 05/28/23 19:02 INR 1.22 05/28/23 19:02 APTT 30.5 SECONDS (24.3-36.9) 05/28/23 19:02 Sodium 137 mEq/L (136-145) 05/30/23 08:15 Potassium 4.1 mEq/L (3.5-5.1) 05/30/23 08:15 BUN 12 mg/dL (7-18) 05/30/23 08:15 Creatinine 0.63 mg/dL (0.55-1.02) 05/30/23 08:15 Glucose 104 mg/dL (74-106) 05/30/23 08:15 Total Bilirubin 0.2 mg/dL (0.2-1.0) 05/29/23 05:29 AST 18 U/L (15-37) 05/29/23 05:29 ALT 25 U/L (13-56) 05/29/23 05:29 Alkaline Phosphatase 70 U/L (45-117) 05/29/23 05:29 Home Medications: Ciprofloxacin HCl [Cipro] 500 mg PO BID 3 Days #6 tab 05/31/23 New Medications: Ciprofloxacin HCl [Cipro] 500 mg PO BID 3 Days #6 tab Physician Discharge Instructions: Physician Discharge Instructions: Patient presented to the ED with worsening left sided cheek swelling/pain/erythema and was found to have acute left facial abscess seen on CT. She was recently started on oral clindamycin / bactrim ~2 days prior Patient was seen and evaluated by Dr. Link, ENT, and was taken to OR on 05/28 for I&D of abscess with packing. Patient received empiric vanc / cefepime while hospitalized and had improvement of her symptoms. Wound culture grew MRSA sensitive to bactrim/tetracycline/vanc. Patient was feeling better, afebrile without leukocytosis throughout hospitalization, facial swelling/erythema improving, and was deemed stable for discharge with close follow up with ENT today (05/30). Urine culture from ER visit 05/25/23 was noted to grow E. coli, resistant to bactrim. Patient is to complete 3 more days of PO ciprofloxacin on discharge to cover UTI, for total of 5 days of antibiotic treatment. She is to continue clindamycin as prescribed just prior to this admission (~7-8 days left). stop taking bactrim. Iron studies were checked this hospitalization and were found to be consistent with severe iron deficiency anemia. (iron: 34, tsat%: 9%). Discussed with patient the need to start oral iron supplementation on discharge. Advised to recheck iron levels in a few months. Medications: iron tablets (over the counter) ciprofloxacin x3 days Finish clindamycin prescription that was prescribed few days ago Stop bactrim that was prescribed few days ago. Patient is to finish clindamycin prescription already prescribed and will complete few days of ciprofloxacin as well. Follow up: PCP 3-5 days ENT today as discussed - walk in anytime between 8:30am-12:45pm or 2-4:45pm. Please call to schedule / confirm appointments Followup: Roshni Link DO [ACTIVE - CAN ADMIT] - NONE,NONE [Primary Care Provider] - Time spent managing pt's care (in minutes): 45
[2023-05-31 08:54] VITALS: BP 105/53; TEMP 97
== END 2023-05-31 10:33 | disposition home or self-care (01) | DRG 603 ==
LOC: ER 17:33 → ERHOLD 21:02 → 4TH 21:59
PROVIDERS: ADMIT Family Medicine; ATTEND Hospitalist
PROC: 0J910ZZ Drainage of Face Subcutaneous Tissue and Fascia, Open Approach (ICD-10-PCS; principal; 2023-05-29 12:45)
DX: L03.211 Cellulitis of face (principal); L02.01 Cutaneous abscess of face; N39.0 Urinary tract infection, site not specified; Z16.29 Resistance to other single specified antibiotic; N83.209 Unspecified ovarian cyst, unspecified side; B96.20 Unspecified Escherichia coli [E. coli] as the cause of diseases classified elsewhere; B95.62 Methicillin resistant Staphylococcus aureus infection as the cause of diseases classified elsewhere; D50.9 Iron deficiency anemia, unspecified
CPT/HCPCS: 36415; 70487; 76377; 80048; 80053; 80202; 81001; 81025; 82607; 83540; 83605; 84466; 85025; 85610; 85730; 87040; 87070; 87075; 87077; 87186; 87205; 96365; 96367; 99285; J0692; J1100; J1650; J2001; J2250; J2405; J2704; J3010; J7030; J7050; Q9967

== ENCOUNTER 2023-07-31 17:38 | Emergency (ER) | payer OTHER ==
--- OUTSIDE RECORDS SUMMARY | 2023-07-31 17:40 | XMS REPORT | Continuity of Care Document ---
Author Name Unknown Address [address] [place] [address] [facility] Address [address] [place] [address] Care Team Providers Care Production Miner Name Role Phone [email or web address] Attending Clinician Mercedes Cook Attending Clinician Frankabl e [email or web address] Admitting Clinician Nyla smith Physician, No Primary or Family Admitting Clinic merry Unavailable Payers Payer Name Policy Type Policy Number Effective Date Expirati on Date Source Problems Condition Name Condition Details Condition Category Status Onset Date Resolution Date Last Treatment Date Treating Clinician Comments Source Major depressive disorder, single episode, unspecifie d Major depressive disorder, single episode, unspecifie d Diagnosis Active [facility] Anxiety disorder, unspecifie d Anxiety disorder, unspecifie d Diagnosis Active [facility] Sinus problem Sinus problem Problem Active [facility] Sore throat Sore throat Diagnosis Active [facility] Allergies, Adverse Reactions, Alerts Allergy Name Allergy Type Status Severity Reaction(s) Onset Date Inactive Date Treating Clinician Comments Source No Known Allergie s DA Active U 07-12 00:00: 00 [facility] are [facility] Cinnamon Adverse Reaction Active Info Not Available [facility] Medications Ordered Medication Name Filled Medication Name Start Date Stop Date Current Medication? Ordering Clinician Indication Dosage Frequency Signature (SIG) Comments Components Source Lysine Lysine Yes [facility] as directed [facility] Encounters Start Date/Time End Date/Time Encounter Type Admission Type Attending Clinicians Care Facility Care Department Encounter ID Source 2022-07-12 23:04:41 Emergency [facility] [id number] [facility] Fire Depart ent 2022-12-16 00:00:00 2022-12-16 00:00:00 Outpatient [email or web address] [facility] [id number] [facility] Medical 2022-07-12 19:39:00 2022-07-13 03:00:00 Emergency EM Mercedes Del Castillo [facility] [id number] [address] [place] [address] 2022-07-12 18:34:32 2022-07-12 18:34:32 Emergency E064 MAIRA RAO [id number] MAIRA 2018-10-09 15:20:00 2018-10-09 15:20:00 [facility]patient [facility] [place] [facility] Medicine [id number] [facility]
[2023-07-31 18:38] LABS: Specific Gravity 1.025 (1.005-1.030)
[2023-07-31 18:57] LABS: Absolute Eosinophils 0.1 K/uL (0-0.5); Absolute Lymphocytes (CBC) 0.9 K/uL (0.7-4.9); Absolute Monocytes 0.2 K/uL (0.1-1.3); Absolute Neutrophil 1.9 K/uL (1.8-8.0); Basophils % 0.2 % (0-1.3); Eosinophils % 2.1 % (0-4.4); Hematocrit 30.4 % (36.0-45.0); Hemoglobin 9.9 g/dL (12.0-15.0); Lymphocytes % 29.3 % (15.3-44.8); MCH 25.1 pg (27.0-35.0); MCHC 32.6 g/dL (32.0-36.0); MPV 6.9 fL (7.6-11.3); Monocytes % 6.4 % (3.3-12.3); Platelets 151 thou/uL (152-406); RBC Red Blood Cell Count 3.95 M/uL (3.86-4.86); Red Cell Distribution Width 16.2 % (12.1-15.2)
[2023-07-31 19:10] LABS: Anion Gap 7.4 mEq/L (5.0-15.0); Potassium 3.4 mEq/L (3.5-5.1)
[2023-07-31 19:12] LABS: Specific Gravity 1.025 (1.005-1.030); Urine Bacteria None Seen /HPF (<20); Urine Bilirubin NEGATIVE (Negative); Urine Blood Negative (Negative); Urine Clarity Extremely Turbid (Clear); Urine Color Yellow (Yellow); Urine Culture Reflex Order REFLEXED; Urine Glucose NEGATIVE (Negative); Urine Ketones NEGATIVE (Negative); Urine Micro Reflex YN NO BILL MICROSCOPIC; Urine Mucus 4+ /HPF (None Seen); Urine Nitrite 2+ (Negative); Urine Protein 1+ (Negative); Urine Urobilinogen Normal (Normal); Urine pH 6.5 (5.0-7.0)
[2023-07-31] MEDS ORDERED: NA CHLORIDE 0.9% 1,000 ML ONE (19:12)
[2023-07-31 19:36] LABS: Monoscreen NEG (NEG)
[2023-07-31 20:15] LABS: RPR Titer ND
[2023-07-31] MEDS ORDERED: dexAMETHasone 10 MG/ML VIAL ONE (20:20)
[2023-07-31] MEDS ORDERED: CEFTRIAXONE 1000 MG/VIAL ONE (20:20)
[2023-07-31] MEDS ORDERED: DIPHENHYDRAMINE 50 MG/ML VIAL ONE (20:20)
[2023-07-31 20:34] LABS: RPR (Rapid Plasma Reagin) NON-REACT (NON-REACT)
--- NOTE | 2023-07-31 20:42 | ER ---
Nurse's Notes [facility] Rena Name: aJclyn Kemp Age: 23 yrs Sex: Female : 2000 Arrival Date: 07/31/2023 Time: 17:38 Bed 10 Private MD: Diagnosis: Allergic urticaria;Acute tonsillitis, unspecified Presentation: 07/30 17:55 Chief complaint: Patient states: GLOBAL RASH x3 DAYS. Coronavirus screen: At this time, bp the client does not indicate any symptoms associated with coronavirus-19. Ebola Screen: No symptoms or risks identified at this time. Onset: The symptoms/episode began/occurred 3 day(s) ago. Anaphylaxis evaluation, no signs or symptoms of anaphylaxis were noted. Initial Sepsis Screen: Does the patient meet any 2 criteria? HR > 90 bpm. No. Patient's initial sepsis screen is negative. Does the patient have a suspected source of infection? No. Patient's initial sepsis screen is negative. Risk Assessment: Do you want to hurt yourself or someone else? Patient reports no desire to harm self or others. Onset of symptoms is unknown. 17:55 Method Of Arrival: Ambulatory bp 17:55 Acuity: DAVID 3 bp Triage Assessment: 17:57 General: Appears in no apparent distress. uncomfortable, Behavior is calm, cooperative, bp appropriate for age. Pain: Denies pain. EENT: No deficits noted. Neuro: No deficits noted. Cardiovascular: Rhythm is sinus tachycardia. Respiratory: No deficits noted. GI: No signs and/or symptoms were reported involving the gastrointestinal system. Derm: Rash noted that is itchy. D[employer]AD: 20:38 Not cm10 Historical: - Allergies: 17:57 No Known Allergies; bp - PMHx: 17:57 Ovarian cysts (depressive disorder); depressive disorder; bp - PSHx: 17:57 section; left elbow; bp - Immunization history:: Adult Immunizations up to date. - Infectious Disease History:: Denies. - Social history:: Smoking status: Patient denies any tobacco usage or history of. Screenin:[address] [facility] ED Fall Risk Assessment (Adult) History of falling in the last 3 months, bp including since admission No falls in past 3 months (0 pts). Abuse screen: Denies threats or abuse. Denies injuries from another. Nutritional screening: No deficits noted. Tuberculosis screening: No symptoms or risk factors identified. Assessment: 18:27 Reassessment: Patient and/or family updated on plan of care and expected duration. Pain ll1 level reassessed. 19:10 General: Appears in no apparent distress. uncomfortable, Behavior is calm, cooperative. cm10 Neuro: No deficits noted. Level of Consciousness is awake, alert, obeys commands, Oriented to person, place, time, situation, Appropriate for age. Respiratory: Airway is patent Respiratory effort is even, unlabored, Respiratory pattern is regular, symmetrical, Breath sounds are clear bilaterally. Derm: Rash noted that is red, raised, on Generalized. Musculoskeletal: No deficits noted. Range of motion: intact in all extremities. 20:38 Reassessment: Patient appears in no apparent distress at this time. No changes from cm10 previously documented assessment. Patient and/or family updated on plan of care and expected duration. Pain level reassessed. Patient is alert, oriented x 3, equal unlabored respirations, skin warm/dry/pink. Vital Signs: 17:55 BP 111 / 73; Pulse 126; Resp 20; Temp 100; Pulse Ox 100% ; Weight 54.43 kg; Height 5 bp ft. 2 in. ; 19:16 BP 103 / 49; Pulse 105; Resp 18; Pulse Ox 97% on R/A; cm10 20:38 BP 116 / 58; Pulse 106; Resp 18; Pulse Ox 100% ; cm10 21:01 BP 107 / 59; Pulse 107; Resp 16; Pulse Ox 100% ; cm10 17:55 Body Mass Index 21.95 (54.43 kg, 157.48 cm) bp ED Course: 17:40 Patient arrived in ED. mr 17:41 Juancarlos Moyer PA is PHCP. cp 17:41 Ike Estrella MD is Attending Physician. cp 17:56 Triage completed. bp 17:57 Arm band placed on. bp 17:58 Patient has correct armband on for positive identification. bp 18:22 Fanny Cochran, SUSAN is Primary Nurse. mb9 18:26 Patient placed in an exam room, on a stretcher. ll1 18:27 Warm blanket given. Pillow given. ll1 18:52 [place] Screen Profile Sent. cm10 18:52 BMP Sent. cm10 18:52 CBC with Diff Sent. cm10 18:52 Strep Sent. cm10 18:52 Initial lab(s) drawn, by or, sent to lab. Strep swab sent to lab. Inserted saline lock: cm10 20 gauge in right antecubital area, using aseptic technique. Blood collected. 19:10 Carrie Rousseau, RN is Primary Nurse. cm10 21:02 Provided Education on: Follow-up instructions. cm10 21:02 No provider procedures requiring assistance completed. IV discontinued, intact, cm10 bleeding controlled, No redness/swelling at site. Pressure dressing applied. Administered Medications: 19:16 Drug: NS 0.9% IV 1000 ml IV at 1 bolus Per protocol; 1000 mL bolus Route: IV; Rate: 1 cm10 bolus; Site: right antecubital; 20:15 Follow up: Response: No adverse reaction; IV Status: Completed infusion; IV Intake: cm10 1000ml 20:38 Drug: Decadron - Dexamethasone IVP 10 mg IVP once Route: IVP; Site: right antecubital; cm10 21:00 Follow up: Response: No adverse reaction cm10 20:38 Drug: Rocephin IV 1 grams IV at calculated rate once; Given slow IV push per pharmacy cm10 instructions Route: IV; Rate: calculated rate; Site: right antecubital; 20:48 Follow up: Response: No adverse reaction; IV Status: Completed infusion; IV Intake: [id number] 20:38 Drug: diphenhydrAMINE IVP 25 mg IVP once Route: IVP; Site: right antecubital; cm10 21:01 Follow up: Response: No adverse reaction cm10 21:01 Drug: predniSONE PO 60 mg PO once Route: PO; cm10 21:01 Follow up: Response: Medication administered at discharge. cm10 Medication: 19:11 VIS not applicable for this client. cm10 Intake: 20:15 IV: 1000ml; Total: 1000ml. cm10 20:48 IV: 10ml; Total: 1010ml. cm10 Outcome: 20:41 Discharge ordered by . cp 21:02 Discharged to home ambulatory, with friend, cm10 21:02 Condition: good 21:02 Discharge instructions given to patient, Instructed on discharge instructions, follow up and referral plans. medication usage, Demonstrated understanding of instructions, follow-up care, medications, Prescriptions given X 3, 21:02 Patient left the ED. cm10 Signatures: Fanny Duarte, Reg Reg mr Juancarlos Moyer, Vlad Lawrence cp, RN RN bp Grisel Neil RN RN ll1 Fanny Cochran, RN RN mb9 Carrie Rousseau RN RN cm10
--- NOTE | 2023-07-31 20:42 | EDPHYS ---
Physician Documentation [facility] Name: Jaclyn Kemp Age: 23 yrs Sex: Female : 2000 Arrival Date: 07/31/2023 Time: 17:38 Bed 10 Private MD: ED Physician Ike Estrella HPI: 07/30 17:54 This 23 yrs old Female presents to ER via Unassigned with complaints of Allergic cp Reaction, Hives. 17:54 The patient presents with rash, that is diffuse. Onset: The symptoms/episode cp began/occurred 3 day(s) ago. Associated signs and symptoms: Pertinent positives: fever, sore throat. Possible causes: ate some candy yams that contained cinnamon and patient with known food allergy to cinnamon. At home the patient or guardian has treated the symptoms with nothing. 17:54 Severity of symptoms: in the emergency department the symptoms are worse moderately. 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 - Infectious Disease History:: Denies. - Social history:: Smoking status: Patient denies any tobacco usage or history of. ROS: 18:00 Constitutional: Positive for fever, cp 18:00 ENT: Positive for sore throat, cp 18:00 Respiratory: Negative for cough, shortness of breath, wheezing, 18:00 Abdomen/GI: Negative for abdominal pain, vomiting, diarrhea, constipation, 18:00 Skin: Positive for rash, diffusely, 18:00 Neuro: Negative for altered mental status, numbness, weakness, cp 18:00 All other systems are negative, cp Exam: 18:05 Constitutional: The patient appears in no acute distress, alert, awake, non-toxic, well cp developed, well nourished, appears ill 18:05 Head/face: Exam is negative for obvious evidence of injury or deformity, cp 18:05 Eyes: Periorbital structures: appear normal, Pupils: equal, round, and reactive to light and accomodation, Extraocular movements: intact throughout, Conjunctiva: normal, no exudate, no injection, Sclera: no appreciated abnormality, Lids and lashes: appear normal, bilaterally, 18:05 ENT: Ear canal(s): are normal, Nose: is normal, Mouth: Lips: moist, Oral mucosa: moist, Posterior pharynx: Airway: no evidence of obstruction, Tonsils: bilaterally enlarged, with erythema, with exudate, Uvula: midline, erythema, that is moderate, 18:05 Neck: ROM/movement: Meningeal signs: are not present, nuchal rigidity, is not appreciated, 18:05 Cardiovascular: Rate: tachycardic, Rhythm: regular, 18:05 Respiratory: the patient does not display signs of respiratory distress, Respirations: normal, no use of accessory muscles, no retractions, labored breathing, is not present, Breath sounds: are clear throughout, no decreased breath sounds, no stridor, no wheezing, 18:05 Abdomen/GI: Inspection: abdomen appears normal, Palpation: abdomen is soft and non-tender, in all quadrants, 18:05 Skin: rash can be described as erythematous, raised, hives, and is diffusely located, 18:05 Neuro: Orientation: to person, place \T\ time. Mentation: is normal, Motor: moves all fours, strength is normal, Sensation: is normal, Vital Signs: 17:55 BP 111 / 73; Pulse 126; Resp 20; Temp 100; Pulse Ox 100% ; Weight 54.43 kg; Height 5 bp ft. 2 in. ; 19:16 BP 103 / 49; Pulse 105; Resp 18; Pulse Ox 97% on R/A; cm10 20:38 BP 116 / 58; Pulse 106; Resp 18; Pulse Ox 100% ; cm10 21:01 BP 107 / 59; Pulse 107; Resp 16; Pulse Ox 100% ; cm10 17:55 Body Mass Index 21.95 (54.43 kg, 157.48 cm) bp MDM: 17:52 Patient medically screened. 20:00 Differential diagnosis: anaphylaxis, angioedema, urticaria, Simpson' Dk, cp tonsillitis, Scarlet fever, mono, Syphilis. 20:40 Data reviewed: vital signs, nurses notes, lab test result(s), and as a result, I will cp discharge patient. 20:40 I considered the following discharge prescriptions or medication management in the emergency department Medications were administered in the Emergency Department. See MAR. Counseling: I had a detailed discussion with the patient and/or guardian regarding the historical points, exam findings, and any diagnostic results supporting the discharge/admit diagnosis, lab results, the need for outpatient follow up, a family practitioner, to return to the emergency department if symptoms worsen or persist or if there are any questions or concerns that arise at home. 07/30 17:54 Order name: Strep 07/30 19:59 Interpretation: Reviewed. 07/30 17:54 Order name: Urinalysis W/Microscopic; Complete Time: 19:35 07/30 19:36 Interpretation: Normal except: [facility] Extremely Turbid; UPROT 1+; UNIT 2+; UESTR 500; cp UWBC 10-20; URBC 5-10; MUCUS 4+. 07/30 17:54 Order name: Test, Urine; Complete Time: 19:35 07/30 17:54 Order name: CBC with Diff; Complete Time: 19:35 07/30 19:36 Interpretation: Normal except: WBC 3.00; HGB 9.9; HCT 30.4; MCV 77.0; MCH 25.1; PLT cp 151; RDW 16.2; MPV 6.9. 07/30 17:54 Order name: BMP; Complete Time: 19:35 07/30 19:59 Interpretation: Normal except: NA 132; K 3.4; GLUC 135; BUN 6. 07/30 17:54 Order name: [place] Screen Profile; Complete Time: 19:58 07/30 19:58 Interpretation: Reviewed. 07/30 19:11 Order name: Throat Culture [facility] 07/30 19:16 Order name: Urine Culture [facility] 07/30 20:12 Order name: Rpr; Complete Time: 20:40 07/30 20:40 Interpretation: Reviewed. 07/30 20:12 Order name: LAB Add On 07/30 17:54 Order name: IV; Complete Time: 18:52 cp Administered Medications: 19:16 Drug: NS 0.9% IV 1000 ml IV at 1 bolus Per protocol; 1000 mL bolus Route: IV; Rate: 1 cm10 bolus; Site: right antecubital; 20:15 Follow up: Response: No adverse reaction; IV Status: Completed infusion; IV Intake: cm10 1000ml 20:38 Drug: Decadron - Dexamethasone IVP 10 mg IVP once Route: IVP; Site: right antecubital; cm10 21:00 Follow up: Response: No adverse reaction cm10 20:38 Drug: Rocephin IV 1 grams IV at calculated rate once; Given slow IV push per pharmacy cm10 instructions Route: IV; Rate: calculated rate; Site: right antecubital; 20:48 Follow up: Response: No adverse reaction; IV Status: Completed infusion; IV Intake: [id number] 20:38 Drug: diphenhydrAMINE IVP 25 mg IVP once Route: IVP; Site: right antecubital; cm10 21:01 Follow up: Response: No adverse reaction cm10 21:01 Drug: predniSONE PO 60 mg PO once Route: PO; cm10 21:01 Follow up: Response: Medication administered at discharge. cm10 Disposition Summary: 07/31/23 20:41 Discharge Ordered Notes: Location: Home cp Problem: new cp Symptoms: have improved cp Condition: Stable cp Diagnosis - Allergic urticaria cp - Acute tonsillitis, unspecified cp Followup: cp - With: Private Physician - When: 2 - 3 days - Reason: Worsening of condition Discharge Instructions: - Discharge Summary Sheet cp - Hives cp - Tonsillitis cp Forms: - Medication Reconciliation Form cp - Antibiotic Education cp - Prescription Opioid Use cp - Patient Portal Instructions cp - Leadership Thank You Letter cp Prescriptions: - Clindamycin HCl 300 mg Oral Capsule - take 1 capsule ORAL route every 6 hours for 10 days; 40 capsule; Refills: 0, cp Product Selection Permitted - Pepcid 20 mg Oral Tablet - take 1 tablet ORAL route every 12 hours for 5 days; 10 tablet; Refills: 0, cp Product Selection Permitted - Prednisone 20 mg Oral Tablet - take 2 tablets ORAL route once daily for 5 days; 10 tablet; Refills: 0, Product cp Selection Permitted Signatures: Dispatcher [employer] EDMS Juancarlos Moyer PA PA cp Peltier, Brian RN RN Carrie Gonzalez RN RN cm10 Corrections: (The following items were deleted from the chart) 17:54 17:54 Group A Streptococcus Rapid Sc+BA.LAB.BRZ ordered. EDMS EDMS 17:54 17:54 Urinalysis W/Microscopic+U.LAB.BRZ ordered. EDMS EDMS 17:54 17:54 Test, Urine+UC.LAB.BRZ ordered. EDMS EDMS 17 17:54 CBC+H.LAB.BRZ ordered. EDMS EDMS 17 17:54 BASIC METABOLIC PANEL+C.LAB.BRZ ordered. EDMS EDMS 17:54 MONO SCREEN PROFILE+I.LAB.BRZ ordered. EDMS EDMS 20:37 17:54 Possible causes: The patient has no known obvious cause for the symptoms, cp cp
[2023-07-31] MEDS ORDERED: predniSONE 20 MG TAB ONE (20:50)
[2023-07-31 21:21] VITALS: BP 107/59; TEMP 100; O2SAT 100
== END 2023-07-31 21:02 | disposition home or self-care (01) ==
LOC: ER 17:38
DX: L50.0 Allergic urticaria (principal); J03.90 Acute tonsillitis, unspecified
CPT/HCPCS: 96361; 87070; 87088; 85025; 81001; 87086; 80048; 36415; 86308; 81025; 86592; 87081; 96375; 96374; 99284; J7512; J1200; J1100; J7030; J0696; 87077; 87186

== ENCOUNTER 2023-10-15 17:43 | Emergency (ER) | payer OTHER ==
--- OUTSIDE RECORDS SUMMARY | 2023-10-15 17:46 | XMS REPORT | Continuity of Care Document ---
Author Name Unknown Address [address] [place] [address] [facility] 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 [employer] Name Role Phone [email or web address] Attending Clinician Mercedes [...] disorder, single episode, unspecifie d Diagnosis Active [facility] Anxiety disorder, unspecifie d Anxiety disorder, unspecifie d Diagnosis Active [facility] Sinus problem Sinus problem Problem Active [facility] Sore throat Sore throat Diagnosis Active [facility] Allergies, Adverse Reactions, Alerts Allergy Name Allergy Type Status Severity Reaction(s) Onset Date Inactive Date Treating Clinician Comments Source No Known Allergie s DA Active U 07-12 00:00: 00 [facility] are [facility] st Cinnamon Adverse Reaction Active Info Not Available [facility] Medications Ordered Medication Name Filled Medication Name Start Date Stop Date Current Medication? Ordering Clinician Indication Dosage Frequency Signature (SIG) Comments Components Source Lysine Lysine Yes Maite Fowler as directed [facility] Encounters Start Date/Time End Date/Time Encounter Type Admission Type Attending Clinicians Care Facility Care Department Encounter ID Source 2022-07-12 23:04:41 Emergency [facility] [id number] [facility] 2022-12-16 00:00:00 2022-12-16 00:00:00 Outpatient [email or web address] [facility] [id number] [facility] 2022-07-12 19:39:00 2022-07-13 03:00:00 Emergency EM Mercedes Del Castillo [facility] [id number] [address] [place] [address] 2022-07-12 18:34:32 2022-07-12 18:34:32 Emergency [id number] MAIRA RAO [id number] MAIRA 2018-10-09 15:20:00 2018-10-09 15:20:00 Outpatient [facility] [place] [facility] [id number] [facility]
--- NOTE | 2023-10-15 19:03 | RAD REPORT ---
EXAM DESCRIPTION: US - Transvaginal Study Probe - 10/15/2023 6:41 pm CLINICAL HISTORY: ABD PAIN COMPARISON: Transvaginal Study Probe dated 03/22/2023 TECHNIQUE: Sonographic grayscale and color flow images of the pelvis were obtained. FINDINGS: The uterus is normal in size, shape and echotexture. The uterus measures 8.5 cm in length. The endometrial stripe measures 7 mm, normal. Both ovaries are normal in size, shape and echotexture. The right ovary measures 1.9 x 1.4 x 1.3 cm. It is almost entirely occupied by an anechoic 1.8 cm cyst. The left ovary measures 4.4 x 2.5 x 2.8 c m. No suspicious ovarian or parovarian lesions. No adnexal masses. Normal Doppler blood flow was demonstrated to both ovaries. No significant pelvic ascites. IMPRESSION: Asymmetrically small right ovary, with a dominant 1.8 cm cyst/follicle. No other suspicious pelvic abnormality.
[2023-10-15] MEDS ORDERED: KETOROLAC 30 MG/ML INJ ONE (19:05)
[2023-10-15 19:46] LABS: Specific Gravity 1.035 (1.005-1.030)
[2023-10-15 20:02] LABS: Specific Gravity > 1.030 (1.005-1.030); Urine Bacteria None Seen /HPF (<20); Urine Bilirubin NEGATIVE (Negative); Urine Blood 3+ (OVER) (Negative); Urine Clarity Extremely Turbid (Clear); Urine Color Light-Orange (Yellow); Urine Crystals Unidentified Few /HPF (None Seen); Urine Culture Reflex Order REFLEXED; Urine Glucose NEGATIVE (Negative); Urine Ketones TRACE (Negative); Urine Microscopic Reflex YN ORDER UMIC; Urine Mucus 4+ /HPF (None Seen); Urine Nitrite NEGATIVE (Negative); Urine Protein 2+ (Negative); Urine RBC >50 /HPF (None Seen); Urine Urobilinogen Normal (Normal); Urine WBC >50 /HPF (<5); Urine WBC Clump Moderate /HPF (None Seen)
[2023-10-15 20:12] LABS: Absolute Lymphocytes (CBC) 0.5 K/uL (0.7-4.9); Absolute Monocytes 0.3 K/uL (0.1-1.3); Basophils % 0.1 % (0-1.3); Eosinophils % 0.7 % (0-4.4); Hematocrit 31.4 % (36.0-45.0); Hemoglobin 10.3 g/dL (12.0-15.0); Lymphocytes % 9.3 % (15.3-44.8); MCH 25.9 pg (27.0-35.0); MCHC 32.8 g/dL (32.0-36.0); MCV 79.2 fL (80-100); MPV 7.1 fL (7.6-11.3); Monocytes % 4.9 % (3.3-12.3); Platelets 176 thou/uL (152-406); RBC Red Blood Cell Count 3.96 M/uL (3.86-4.86); Red Cell Distribution Width 17.1 % (12.1-15.2)
[2023-10-15 20:17] LABS: Anion Gap 5.8 mEq/L (5.0-15.0); Potassium 3.8 mEq/L (3.5-5.1)
[2023-10-15] MEDS ORDERED: NA CHLORIDE 0.9% 1,000 ML ONE (20:52)
[2023-10-15] MEDS ORDERED: ONDANSETRON 4 MG/2 ML VIAL ONE (20:52)
--- NOTE | 2023-10-15 21:34 | RAD REPORT ---
EXAM DESCRIPTION: CT - Stone Protocol - 10/15/2023 8:01 pm CLINICAL HISTORY: ABD PAIN COMPARISON: Abdomen Pelvis W Contrast dated 03/20/2023bdomen Pelvis W Contrast dated 03/20/2023 TECHNIQUE: Thin cut axial CT imaging of the abdomen and pelvis was performed without IV contrast. Mu ltiplanar reformats were generated and reviewed. All CT scans are performed using dose optimization technique as appropriate and may include automated exposure control or mA/KV adjustment according to patient size. FINDINGS: No suspicious findings in the lung bases. The liver, spleen, adrenal glands, and pancreas show no suspicious findings. Gallbladder and biliary tree are also without suspicious finding. Symmetric renal contour, without suspicious parenchymal findings within limits of noncontrast techniq ue. No evidence of radiopaque calculi or hydroureteronephrosis. No dilated bowel loops or bowel wall thickening. No discrete adnexal suspicious lesions within limits of noncontrast CT evaluation. No free air, free fluid or inflammatory stranding. No hernia, mass or bulky lymphadenopathy. The urinary bladder is without significant finding. No suspicious bony findings. 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 IMPRESSION: No acute intra-abdominal process.
--- NOTE | 2023-10-15 21:38 | ER ---
Nurse's Notes [facility] Name: Jaclyn Kemp Age: 23 yrs Sex: Female : 2000 Arrival Date: 10/15/2023 Time: 17:43 Bed 24 Private MD: Diagnosis: Other ovarian cysts;UTI/ Urinary tract infection, site not specified Presentation: 10/14 18:22 Chief complaint: Patient states: right pelvic pain, pt states "I've been told it's a aa5 ovarian cyst". Coronavirus screen: At this time, the client does not indicate any symptoms associated with coronavirus-19. Ebola Screen: Patient denies travel to an Ebola-affected area in the 21 days before illness onset. Initial Sepsis Screen: Does the patient meet any 2 criteria? No. Patient's initial sepsis screen is negative. Does the patient have a suspected source of infection? No. Patient's initial sepsis screen is negative. Risk Assessment: Do you want to hurt yourself or someone else? Patient reports no desire to harm self or others. Onset of symptoms was October 15, 2023. 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 - Infectious Disease History:: Denies. - Social history:: Smoking status: Patient denies any tobacco usage or history of. Screenin:51 [facility] ED Fall Risk Assessment (Adult) History of falling in the last 3 months, pc2 including since admission No falls in past 3 months (0 pts) Confusion or Disorientation No (0 pts) Intoxicated or Sedated No (0 pts) Impaired Gait No (0 pts) Mobility Assist Device Used No (0 pt) Altered Elimination No (0 pt) Score/Fall Risk Level 0 - 2 = Low Risk Oriented to surroundings, Maintained a safe environment, Hourly rounding (assess needs \\T\\ fall precautionary measures) done. Abuse screen: Denies threats or abuse. Denies injuries from another. Nutritional screening: No deficits noted. Tuberculosis screening: No symptoms or risk factors identified. Assessment: 19:15 General: Appears distressed, uncomfortable, Behavior is crying, inappropriate for age, vc1 restless. Pain: Complains of pain in right lower quadrant, left lower quadrant, suprapubic area, right inguinal area and left inguinal area Pain currently is 10 out of 10 on a pain scale. Quality of pain is described as sharp, Noted to be crying, restless. Neuro: Level of Consciousness is awake, alert, obeys commands, Oriented to person, place, time, situation, Appropriate for age. Cardiovascular: No deficits noted. Respiratory: Airway is patent Respiratory effort is even, unlabored, Respiratory pattern is regular, symmetrical, Breath sounds are clear bilaterally. GI: Abdomen is flat, non-distended, Bowel sounds present X 4 quads. Abd is soft and non tender. : Urine is cloudy, Reports pain in bilateral lower quadrant(s) Pain is 10 out of 10 on a pain scale. EENT: No deficits noted. No signs and/or symptoms were reported regarding the EENT system. Derm: Skin is intact, is healthy with good turgor, Skin is dry, Skin is normal, Skin temperature is warm. Musculoskeletal: Circulation, motion, and sensation intact. Range of motion: intact in all extremities. 21:54 Reassessment: Patient appears in no apparent distress at this time. Patient and/or vc1 family updated on plan of care and expected duration. Pain level reassessed. Patient is alert, oriented x 3, equal unlabored respirations, skin warm/dry/pink. Patient denies pain at this time. Patient states feeling better. Patient states symptoms have improved. Vital Signs: 18:22 BP 107 / 70; Pulse 95; Resp 16 S; Temp 97.1(TE); Pulse Ox 100% on R/A; Weight 54.43 kg aa5 (R); Height 5 ft. 2 in. (R); 21:14 BP 98 / 49; Pulse 81; Resp 17; Pulse Ox 100% on R/A; rv1 21:50 BP 102 / 50; Pulse 69; Resp 16; Pulse Ox 100% on R/A; pc2 18:22 Body Mass Index 21.95 (54.43 kg, 157.48 cm) aa5 ED Course: 17:45 Patient arrived in ED. ra3 18:15 [facility] Tirado [facility]. kb 18:15 Leelee Mcbride MD is Attending Physician. kb 18:22 Triage completed. aa5 18:22 Arm band placed on. aa5 18:41 US Transvaginal Study (Probe) In Process Unspecified. EDMS 19:05 Patient has correct armband on for positive identification. pc2 19:35 Test, Urine Sent. rv1 19:35 Urinalysis w/ reflexes Sent. rv1 19:55 Inserted saline lock: 20 gauge in right antecubital area, using aseptic technique. rv1 Blood collected. Flushed with 10 mL NS. 19:55 BMP Sent. rv1 19:55 CBC with Diff Sent. rv1 20:04 CT Stone Protocol In Process Unspecified. EDMS 21:00 IV discontinued, 20g Rt AC. pc2 21:05 Inserted saline lock: 20 gauge in left antecubital area, using aseptic technique. pc2 Flushed with 10 mL NS. 21:51 No provider procedures requiring assistance completed. pc2 21:51 No provider procedures requiring assistance completed. vc1 21:52 Provided Education on: discharge instructions and prescriptions. pc2 21:52 IV discontinued, 20g Left AC. pc2 21:54 Jimena Quezada, RN is Primary Nurse. vc1 Administered Medications: 19:10 Drug: Ketorolac IM 30 mg IM once Route: IM; Site: right deltoid; hb 21:55 Follow up: Response: No adverse reaction; Pain is decreased pc2 21:04 Drug: NS 0.9% IV 1000 ml IV at 1000 ml once Route: IV; Rate: 1000 ml; Site: right vc1 antecubital; 21:55 Follow up: Response: No adverse reaction; IV Status: Completed infusion; IV Intake: pc2 1000ml 21:55 Follow up: IV Status: Completed infusion; IV Intake: 1000ml vc1 21:04 Drug: Ondansetron IVP 4 mg IVP once; over 2 minutes Route: IVP; Site: right antecubital;vc1 21:55 Follow up: Response: No adverse reaction; Nausea is decreased pc2 21:46 Drug: Rocephin IV 1 grams IV at calculated rate once; Given slow IV push per pharmacy vc1 instructions Route: IV; Rate: calculated rate; Site: right antecubital; 21:54 Follow up: Response: No adverse reaction; Medication administered at discharge.; IV pc2 Status: Completed infusion; IV Intake: 10ml 21:55 Follow up: IV Status: Completed infusion; IV Intake: 10ml vc1 Medication: 21:51 VIS not applicable for this client. pc2 Intake: 21:54 IV: 10ml; Total: 10ml. pc2 21:55 IV: 1000ml; Total: 1010ml. pc2 21:55 IV: 10ml; Total: 1020ml. vc1 21:55 IV: 1000ml; Total: 2020ml. vc1 Outcome: 21:38 Discharge ordered by . junito 21:51 Discharged to home ambulatory, with friend, pc2 21:51 Condition: stable 21:51 Discharge instructions given to patient, Instructed on discharge instructions, follow up and referral plans. medication usage, Demonstrated understanding of instructions, follow-up care, medications, Prescriptions given X 2, 21:55 Patient left the ED. pc2 Signatures: Dispatcher [employer] EDMS Aleshia Tirado, INSPECTOR PLUG SEAM-C INSPECTOR PLUG SEAM-Vivi Moya, RN RN aa5 Augusta Kline RN RN Jimena Quezada RN RN vc1 Lily Green1 Katherin Puente ra3 Sarahi Rollins, RN RN pc2
--- NOTE | 2023-10-15 21:38 | EDPHYS ---
Physician Documentation [facility] Name: Jaclyn Kemp Age: 23 yrs Sex: Female : 2000 Arrival Date: 10/15/2023 Time: 17:43 Bed 24 Private MD: ED Physician Leelee Mcbride HPI: 10/14 18:21 This 23 yrs old Female presents to ER via Unassigned with complaints of Pelvic Pain. kb 18:21 Pt is a 23 year old female who presents for right pelvic pain that started last night. kb States she has had this same pain in the past and diagnosed with a cyst. Reports vaginal bleeding, but this is the normal time for her cycle. Denies vomiting, diarrhea. States she has had nausea and "hot and cold flashes.". 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 - Infectious Disease History:: Denies. - Social history:: Smoking status: Patient denies any tobacco usage or history of. ROS: 18:23 Constitutional: As per HPI kb Exam: 18:23 Constitutional: This is a well developed, well nourished patient who is awake, alert, kb and in no acute distress. Head/Face: Normocephalic, atraumatic. ENT: Moist Mucous membranes Cardiovascular: Regular rate Respiratory: Respirations even and unlabored. No increased work of breathing. Talking in full sentences Skin: Warm, dry with normal turgor. Normal color. MS/ Extremity: Pulses equal, no cyanosis. Neurovascular intact. Full, normal range of motion. Neuro: Awake and alert, GCS 15, oriented to person, place, time, and situation. Moves all extremities. Normal gait. 18:23 Abdomen/GI: Inspection: abdomen appears normal, Palpation: soft, moderate abdominal tenderness, right groin/pelvic tenderness, Vital Signs: 18:22 BP 107 / 70; Pulse 95; Resp 16 S; Temp 97.1(TE); Pulse Ox 100% on R/A; Weight 54.43 kg aa5 (R); Height 5 ft. 2 in. (R); 21:14 BP 98 / 49; Pulse 81; Resp 17; Pulse Ox 100% on R/A; rv1 21:50 BP 102 / 50; Pulse 69; Resp 16; Pulse Ox 100% on R/A; pc2 18:22 Body Mass Index 21.95 (54.43 kg, 157.48 cm) aa5 MDM: 18:15 Patient medically screened. kb 18:24 Data reviewed: vital signs, nurses notes. kb 18:24 Differential diagnosis: uti, ovarian cyst, ectopic . kb 21:37 Counseling: I had a detailed discussion with the patient and/or guardian regarding the kb historical points, exam findings, and any diagnostic results supporting the discharge/admit diagnosis, lab results, radiology results, the need for outpatient follow up, an OB/Gyne specialist, to return to the emergency department if symptoms worsen or persist or if there are any questions or concerns that arise at home. 10/14 18:23 Order name: Test, Urine; Complete Time: 19:47 kb 10/14 18:23 Order name: Urinalysis w/ reflexes; Complete Time: 20:12 kb 10/14 19:31 Order name: CBC with Diff; Complete Time: 20:27 kb 10/14 19:31 Order name: BMP; Complete Time: 20:20 kb 10/14 20:10 Order name: Urine Culture EDMS 10/14 18:23 Order name: US Transvaginal Study (Probe); Complete Time: 19:03 kb 10/14 19:10 Order name: CT Stone Protocol; Complete Time: 21:36 kb 10/14 19:31 Order name: IV Start; Complete Time: 19:55 kb Administered Medications: 19:10 Drug: Ketorolac IM 30 mg IM once Route: IM; Site: right deltoid; hb 21:55 Follow up: Response: No adverse reaction; Pain is decreased pc2 21:04 Drug: NS 0.9% IV 1000 ml IV at 1000 ml once Route: IV; Rate: 1000 ml; Site: right vc1 antecubital; 21:55 Follow up: Response: No adverse reaction; IV Status: Completed infusion; IV Intake: pc2 1000ml 21:55 Follow up: IV Status: Completed infusion; IV Intake: 1000ml vc1 21:04 Drug: Ondansetron IVP 4 mg IVP once; over 2 minutes Route: IVP; Site: right antecubital;vc1 21:55 Follow up: Response: No adverse reaction; Nausea is decreased pc2 21:46 Drug: Rocephin IV 1 grams IV at calculated rate once; Given slow IV push per pharmacy vc1 instructions Route: IV; Rate: calculated rate; Site: right antecubital; 21:54 Follow up: Response: No adverse reaction; Medication administered at discharge.; IV pc2 Status: Completed infusion; IV Intake: 10ml 21:55 Follow up: IV Status: Completed infusion; IV Intake: 10ml vc1 Disposition Summary: 10/15/23 21:38 Discharge Ordered Notes: Location: Home kb Condition: Stable kb Diagnosis - Other ovarian cysts kb - UTI/ Urinary tract infection, site not specified kb Followup: kb - With: Emergency Department - When: As needed - Reason: Worsening of condition Followup: kb - With: Private Physician - When: 2 - 3 days - Reason: Recheck today's complaints, Continuance of care, Re-evaluation by your physician Discharge Instructions: - Discharge Summary Sheet kb - Urinary Tract Infection, Adult, [id number] kb - Ovarian Cyst, [id number] kb Forms: - Medication Reconciliation Form kb - Antibiotic Education kb - Prescription Opioid Use kb - Patient Portal Instructions kb - Leadership Thank You Letter kb Prescriptions: - Augmentin 875-125 mg Oral Tablet - take 1 tablet ORAL route every 12 hours for 10 days; 20 tablet; Refills: 0, kb Product Selection Permitted - Diclofenac Sodium 75 mg Oral tablet, delayed release (enteric coated) - take 1 tablet ORAL route 2 times per day As needed; 30 tablet; Refills: 0, kb Product Selection Permitted Signatures: Dispatcher [employer] [facility] Aleshia Tirado, RETURNER-C RETURNER-Vivi Moya RN RN aa5 Augusta Kline RN RN Jimena Douglas RN RN vc1 Sarahi Rollins RN pc2 Corrections: (The following items were deleted from the chart) 18:24 18:24 Test, Urine+UC.LAB.BRZ ordered. EDNC EDMS 18:24 18:24 Urinalysis+U.LAB.BRZ ordered. EDNC EDMS 18:24 18:24 Transvaginal Study (Probe)+US.RAD.BRZ ordered. EDMS EDMS 19:10 19:10 Stone Protocol+CT.RAD.BRZ ordered. EDMS EDMS
[2023-10-15] MEDS ORDERED: CEFTRIAXONE 1000 MG/VIAL ONE (21:40)
[2023-10-15 22:24] VITALS: TEMP 97.1; O2SAT 100
[2023-10-15 22:27] VITALS: BP 102/50
== END 2023-10-15 21:55 | disposition home or self-care (01) ==
LOC: ER 17:43
DX: N39.0 Urinary tract infection, site not specified (principal); N83.292 Other ovarian cyst, left side
CPT/HCPCS: 96361; 87088; 85025; 81001; 87086; 80048; 36415; 81025; 76377; 74176; 76830; 96375; 96372; 96374; 99284; J2405; J7030; J0696

== ENCOUNTER 2024-01-16 09:47 | Emergency (ER) | payer OTHER ==
--- OUTSIDE RECORDS SUMMARY | 2024-01-16 09:51 | XMS REPORT | Continuity of Care Document ---
Author Name Unknown Address [address] [place] [address] [facility] 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 Phone [email or web address] Attending Clinician Mercedes [...] disorder, single episode, unspecifie d Diagnosis Active [facility] Anxiety disorder, unspecifie d Anxiety disorder, unspecifie d Diagnosis Active [facility] Sinus problem Sinus problem Problem Active [facility] Sore throat Sore throat Diagnosis Active [facility] Allergies, Adverse Reactions, Alerts Allergy Name Allergy Type Status Severity Reaction(s) Onset Date Inactive Date Treating Clinician Comments Source No Known Allergie s DA Active U 07-12 00:00: 00 [facility] are [facility] Cinnamon Adverse Reaction Active Info Not Available [facility] Medications Ordered Medication Name Filled Medication Name Start Date Stop Date Current Medication? Ordering Clinician Indication Dosage Frequency Signature (SIG) Comments Components Source Lysine Lysine Yes Maite Glacier as directed [facility] Encounters Start Date/Time End Date/Time Encounter Type Admission Type Attending Clinicians Care Facility Care Department Encounter ID Source 2022-07-12 23:04:41 Emergency [facility] [id number] [facility] Fire Depart ent 2022-12-16 00:00:00 2022-12-16 00:00:00 Outpatient [email or web address] [facility] [id number] [facility] Medical 2022-07-12 19:39:00 2022-07-13 03:00:00 Emergency EM Mercedes Del Castillo [facility] [id number] [address] [place] [address] 2022-07-12 18:34:32 2022-07-12 18:34:32 Emergency [id number] MAIRA RAO [id number] MAIRA 2018-10-09 15:20:00 2018-10-09 15:20:00 [facility] [place] [facility] [place] [facility] Medicine [id number] [facility]
[2024-01-16 10:39] LABS: Absolute Eosinophils 0.1 K/uL (0-0.5); Absolute Lymphocytes (CBC) 0.9 K/uL (0.7-4.9); Absolute Monocytes 0.3 K/uL (0.1-1.3); Absolute Neutrophil 1.8 K/uL (1.8-8.0); Basophils % 0.4 % (0-1.3); Eosinophils % 2.7 % (0-4.4); Hematocrit 35.8 % (36.0-45.0); Hemoglobin 11.6 g/dL (12.0-15.0); Lymphocytes % 28.1 % (15.3-44.8); MCH 26.3 pg (27.0-35.0); MCHC 32.4 g/dL (32.0-36.0); MCV 81.3 fL (80-100); Monocytes % 10.1 % (3.3-12.3); Neutrophils % 58.7 % (41.7-73.7); Nucleated Red Blood Cells % 0.1 % (0-0); Platelets 192 thou/uL (152-406); RBC Red Blood Cell Count 4.41 M/uL (3.86-4.86); Red Cell Distribution Width 16.8 % (12.1-15.2)
[2024-01-16 10:46] LABS: Specific Gravity > 1.030 (1.005-1.030)
[2024-01-16 10:49] LABS: Specific Gravity > 1.030 (1.005-1.030); Sqamous Epithelial >50 /HPF (None Seen); Transitional Epithelial <5 /HPF (None Seen); Urine Bacteria 20-50 /HPF (<20); Urine Bilirubin NEGATIVE (Negative); Urine Blood Negative (Negative); Urine Clarity Extremely Turbid (Clear); Urine Color Yellow (Yellow); Urine Culture Reflex Order NOT NEEDED; Urine Glucose NEGATIVE (Negative); Urine Ketones NEGATIVE (Negative); Urine Microscopic Reflex YN ORDER UMIC; Urine Mucus 2+ /HPF (None Seen); Urine Nitrite NEGATIVE (Negative); Urine Protein 1+ (Negative); Urine RBC 21-50 /HPF (None Seen); Urine Urobilinogen Normal (Normal); Urine WBC >50 /HPF (<5)
[2024-01-16 10:51] LABS: PT Prothrombin Time 12.4 SECONDS (9.4-12.5); PTT, Activated Partial Thromb 32.9 SECONDS (24.3-36.9); Protime INR 1.11
[2024-01-16 10:57] LABS: Barbiturates NEGATIVE (NEGATIVE); Benzodiazepines NEGATIVE (NEGATIVE); Cocaine NEGATIVE (NEGATIVE); METHAMPHETAM POSITIVE (NEGATIVE); Methadone NEGATIVE (NEGATIVE); Opiates NEGATIVE (NEGATIVE); Phencyclidine NEGATIVE (NEGATIVE); THC Cannibis NEGATIVE (NEGATIVE)
[2024-01-16 10:58] LABS: ALT/SGPT 25 U/L (13-56); AST/SGOT 23 U/L (15-37); Albumin 3.5 g/dL (3.4-5.0); Albumin/Globulin Ratio 0.7 (1.1-1.8); Alkaline Phosphatase 77 U/L (45-117); Anion Gap 8.4 mEq/L (5.0-15.0); BUN Blood Urea Nitrogen 23 mg/dL (7-18); Bicarbonate 28 mEq/L (21-32); Bilirubin Direct < 0.2 mg/dL (0-0.2); Bilirubin Indirect, Calculated 0.2 mg/dL (0.2-0.8); Bilirubin Total 0.4 mg/dL (0.2-1.0); Globulin 5.1 g/dL (2.3-3.5); Glomerular Filtration Rate 92 ml/min (=/>90); Glucose Level 115 mg/dL (74-106); Potassium 3.4 mEq/L (3.5-5.1); Protein, Total 8.6 g/dL (6.4-8.2); Sodium Level 138 mEq/L (136-145)
[2024-01-16] MEDS ORDERED: NA CHLORIDE 0.9% 1,000 ML ONE (11:43)
[2024-01-16] MEDS ORDERED: CEFTRIAXONE 1000 MG/VIAL ONE (12:17)
[2024-01-16] MEDS ORDERED: POTASSIUM 25 MEQ EFFERV TAB ONE (12:17)
[2024-01-16] MEDS ORDERED: CIPROFLOXACIN HCL 500 MG TAB ONE (12:17)
[2024-01-16] MEDS ORDERED: NA CHLORIDE 0.9% 50 ML ONE (12:18)
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
--- NOTE | 2024-01-16 12:39 | EDPHYS ---
Physician Documentation [facility] Name: Jaclyn Kemp Age: 23 yrs Sex: Female : 2000 Arrival Date: 01/16/2024 Time: 09:47 Bed 18 Private MD: ED Physician Juancarlos Gusman HPI: 01/15 10:31 This 23 yrs old Female presents to ER via Ambulatory with complaints of Suicidal amanda Ideation. 10:31 The patient presents to the emergency department with depression, suicide ideation, and amanda the patient has a plan, to hang oneself. Onset: The symptoms/episode began/occurred 2 day(s) ago. Past psychiatric history: Prior diagnosis: addiction history, depression. Associated signs and symptoms: Pertinent positives; depression, substance abuse, suicide ideation. Severity of symptoms: At their worst the symptoms were mild in the emergency department the symptoms are unchanged. The patient has experienced similar episodes in the past, multiple times. 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 - Infectious Disease History:: Denies. - Social history:: Smoking status: Patient denies any tobacco usage or history of. Patient uses street drugs, Methamphetamine (Meth). - Family history:: not pertinent. ROS: 10:31 Constitutional: Negative for fever, chills, and weight loss, Eyes: Negative for injury, amanda pain, redness, and discharge, ENT: Negative for injury, pain, and discharge, Neck: Negative for injury, pain, and swelling, Cardiovascular: Negative for chest pain, palpitations, and edema, Respiratory: Negative for shortness of breath, cough, wheezing, and pleuritic chest pain, Abdomen/GI: Negative for abdominal pain, nausea, vomiting, diarrhea, and constipation, Back: Negative for injury and pain, : Negative for injury, bleeding, discharge, and swelling, MS/Extremity: Negative for injury and deformity, Skin: Negative for injury, rash, and discoloration, Neuro: Negative for headache, weakness, numbness, tingling, and seizure, Allergy/Immunology: Negative for hives, rash, and allergies, Endocrine: Negative for neck swelling, polydipsia, polyuria, polyphagia, and marked weight changes, Hematologic/Lymphatic: Negative for swollen nodes, abnormal bleeding, and unusual bruising, 10:31 Psych: Positive for anxiety, depression, suicidal ideation, Exam: 10:31 Constitutional: This is a well developed, well nourished patient who is awake, alert, amanda and in no acute distress. Head/Face: Normocephalic, atraumatic. Eyes: Pupils equal round and reactive to light, extra-ocular motions intact. Lids and lashes normal. Conjunctiva and sclera are non-icteric and not injected. Cornea within normal limits. Periorbital areas with no swelling, redness, or edema. ENT: Nares patent. No nasal discharge, no septal abnormalities noted. Tympanic membranes are normal and external auditory canals are clear. Oropharynx with no redness, swelling, or masses, exudates, or evidence of obstruction, uvula midline. Mucous membranes moist. Neck: Trachea midline, no thyromegaly or masses palpated, and no cervical lymphadenopathy. Supple, full range of motion without nuchal rigidity, or vertebral point tenderness. No Meningismus. Chest/axilla: Normal chest wall appearance and motion. Nontender with no deformity. No lesions are appreciated. Cardiovascular: Regular rate and rhythm with a normal S1 and S2. No gallops, murmurs, or rubs. Normal PMI, no JVD. No pulse deficits. Respiratory: Lungs have equal breath sounds bilaterally, clear to auscultation and percussion. No rales, rhonchi or wheezes noted. No increased work of breathing, no retractions or nasal flaring. Abdomen/GI: Soft, non-tender, with normal bowel sounds. No distension or tympany. No guarding or rebound. No evidence of tenderness throughout. Back: No spinal tenderness. No costovertebral tenderness. Full range of motion. Skin: Warm, dry with normal turgor. Normal color with no rashes, no lesions, and no evidence of cellulitis. MS/ Extremity: Pulses equal, no cyanosis. Neurovascular intact. Full, normal range of motion. Neuro: Awake and alert, GCS 15, oriented to person, place, time, and situation. Cranial nerves II-XII grossly intact. Motor strength 5/5 in all extremities. Sensory grossly intact. Cerebellar exam normal. Normal gait. Psych: Awake, alert, with orientation to person, place and time. Behavior, mood, and affect are within normal limits. 10:31 ECG was reviewed by the Attending Physician. 10:31 Musculoskeletal/extremity: Circulation is intact in all extremities. Sensation intact. Compartment Syndrome exam of affected extremity: is normal. DVT Exam: No signs of deep vein thrombosis. no pain, no swelling, no tenderness, negative Homans' sign noted on exam, no appreciated bluish discoloration, no erythema, no increased warmth, 10:44 ECG was reviewed by the Attending Physician. amanda Vital Signs: 10:02 BP 117 / 76; Pulse 93; Resp 16; Temp 98.1; Pulse Ox 100% on R/A; Weight 58.97 kg; iw Height 5 ft. 2 in. ; Pain 0/10; 13:30 BP 118 / 78; Pulse 88; Resp 18; Temp 98.1; Pulse Ox 100% ; db 10:02 Body Mass Index 23.78 (58.97 kg, 157.48 cm) iw 10:02 Pain Scale: Adult iw MDM: 09:50 Medical Screening Exam initiated amanda 10:45 Differential diagnosis: drug withdrawal. acute psychotic break, depression, psychosis amanda secondary to non-compliance. Data reviewed: vital signs, nurses notes, lab test result(s), EKG. Consideration of Admission/Observation Escalation of care including admission/observation considered. I considered the following discharge prescriptions or medication management in the emergency department Medications were administered in the Emergency Department. See MAR. Independent interpretation of the following test(s) in the Emergency Department EKG: See my EKG interpretation above. Test considered but Not performed: CT: no ct head. Historians other than the Patient: Parent: mom well informed. Care significantly affected by the following chronic conditions: depression , drugs. Counseling: I had a detailed discussion with the patient and/or guardian regarding the historical points, exam findings, and any diagnostic results supporting the discharge/admit diagnosis, lab results, the need for outpatient follow up, for definitive care, a psychiatrist. 01/15 09:50 Order name: Acetaminophen; Complete Time: 11:56 [facility] 01/15 09:50 Order name: Basic Metabolic Panel; Complete Time: 11:56 amanda 01/15 09:50 Order name: CBC with Diff; Complete Time: 11:56 [facility] 01/15 09:50 Order name: ETOH Level; Complete Time: 11:56 [facility] 01/15 09:50 Order name: Hepatic Function; Complete Time: 11:56 [facility] 01/15 09:50 Order name: PT-INR; Complete Time: 11:56 [facility] 01/15 09:50 Order name: Test, Urine; Complete Time: 11:56 [facility] 01/15 09:50 Order name: Ptt, Activated; Complete Time: 11:56 [facility] 01/15 09:50 Order name: Salicylate; Complete Time: 11:56 [facility] 01/15 09:50 Order name: Urinalysis w/ reflexes; Complete Time: 11:56 [facility] 01/15 09:50 Order name: Urine Drug Screen; Complete Time: 11:56 [facility] 01/15 11:57 Order name: Urine Culture [facility] 01/15 09:50 Order name: EKG - Nurse/Tech; Complete Time: 10:34 [facility] 01/15 09:50 Order name: IV Saline Lock; Complete Time: 10:34 [facility] 01/15 09:50 Order name: Labs collected and sent; Complete Time: 10:34 [facility] 01/15 09:50 Order name: Suicide Precautions; Complete Time: 10:34 [facility] 01/15 09:50 Order name: Suicide Screening ([place]); Complete Time: 10:34 [facility] EC:44 Rate is 72 beats/min. Rhythm is regular. QRS [place] is Normal. [place] interval is normal. QRS amanda interval is normal. QT interval is normal. No Q waves. T waves are Normal. No ST changes noted. Clinical impression: Normal ECG and No evidence of ischemia. Interpreted by me. Reviewed by me. Administered Medications: 11:30 Drug: NS 0.9% IV 1000 ml IV at 1000 ml once; to be given as a bolus over 60 minutes db Route: IV; Rate: 1000 ml; Site: left antecubital; 13:30 Follow up: Response: No adverse reaction; IV Status: Completed infusion; IV Intake: db 1000ml 12:30 Drug: Potassium PO Effervescent Tablet 50 mEq PO once; dissolve in 4 ounces of water or db juice Route: PO; 13:30 Follow up: Response: No adverse reaction db 12:30 Drug: Rocephin IV 1 grams IV at per protocol once; Given slow IV push per pharmacy db instructions Route: IV; Rate: per protocol; Site: left antecubital; 13:30 Follow up: Response: No adverse reaction; IV Status: Completed infusion; IV Intake: 50mldb 12:30 Drug: Ciprofloxacin PO 500 mg PO once Route: PO; db 13:30 Follow up: Response: No adverse reaction db Disposition Summary: 01/16/24 12:37 Transfer Ordered Notes: Transfer Location: Psych Facility amanda Reason: Higher level of care amanda Condition: Fair amanda Problem: new amanda Symptoms: have improved amanda Accepting Physician: TO PSYCH(01/16/24 13:37) iw Diagnosis - Suicidal ideations amanda - Suicide attempt amanda - Adjustment disorder with mixed anxiety and depressed mood amanda - Abuse of other non-psychoactive substances amanda - UTI/ Urinary tract infection, site not specified amanda Discharge Instructions: - Discharge Summary Sheet amanda Signatures: Dispatcher [employer] EDMS Juancarlos Gusman MD MD cha Williams, Irene, RN RN iw Dimple Barry RN RN db Corrections: (The following items were deleted from the chart) 09:51 09:51 ACETAMINOPHEN+C.LAB.BRZ ordered. EDMS EDMS 09:51 09:51 BASIC METABOLIC PANEL+C.LAB.BRZ ordered. EDMS EDMS 09:51 09:51 CBC+H.LAB.BRZ ordered. EDMS EDMS 09:51 09:51 ETHANOL+C.LAB.BRZ ordered. EDMS EDMS 09:51 09:51 HEPATIC FUNCTION+C.LAB.BRZ ordered. EDMS EDMS 09:51 09:51 PROTIME (+INR)+COAG.LAB.BRZ ordered. EDMS EDMS 09:51 09:51 Test, Urine+UC.LAB.BRZ ordered. EDMS EDMS 09:51 09:51 PTT, ACTIVATED+COAG.LAB.BRZ ordered. EDMS EDMS 09:51 09:51 SALICYLATE+C.LAB.BRZ ordered. EDMS EDMS 09:51 09:51 Urinalysis+U.LAB.BRZ ordered. EDMS EDMS 09:51 09:51 URINE DRUG SCREEN+UC.LAB.BRZ ordered. EDMS EDMS 13:37 12:37 TO PSYCH amanda iw
[2024-01-16 16:23] VITALS: BP 117/76; TEMP 98.1; O2SAT 100
--- NOTE | 2024-01-17 11:36 | EKG ---
Test Date: 2024-01-16 Test Time: 10:38:[address] Magistrate: SANDEEP MEASUREMENT RESULTS: Intervals: Rate: 72 RI: 122 QRSD: 94 QT: 390 QTc: 427 [place]: P: 59 RI: 122 QRS: 69 T: 42 INTERPRETIVE STATEMENTS: Normal sinus rhythm Normal ECG No previous ECG available for comparison Electronically Signed On 01-17-24 11:32:16 SALES ADVISOR by Duarte Holden
== END 2024-01-16 13:37 ==
LOC: ER 09:47
DX: T14.91XA Suicide attempt, initial encounter (principal); F43.23 Adjustment disorder with mixed anxiety and depressed mood; F55.8 Abuse of other non-psychoactive substances; N39.0 Urinary tract infection, site not specified
CPT/HCPCS: 96365; 96361; 93005; 87088; 85025; 81001; 87086; 80048; 36415; 81025; 85610; 80076; 85730; 80307; 99285; 80143; 80179; 82077; J7030; J0696